=== PATIENT | male | born 1955 | race Caucasian/White ===

== ENCOUNTER → 2017-04-16 | Outpatient (CLI) | payer BC ==
[~2017-04-16] MED LIST: ALLO300T2 PO; AMLO5TAB PO; ASPI81TA25 PO
== END | disposition home or self-care (01) ==
LOC: C.PATHSPEC 10:24
PROVIDERS: ATTEND Plastic Surgery
DX: L57.0 Actinic keratosis (principal)

== ENCOUNTER 2023-05-08 05:53 | Observation (INO) ==
--- NOTE | 2023-05-01 14:04 | Anesthesiology Consultation ---
Date of Service May 01, 2023 Assessment & Plan (1) Encounter for pre-operative examination: Infectious disease screening: Per assessment on 05/01/23: No known infectious disease contacts or current infectious disease symptoms. Chart Review Chart Review: Acceptable Risk for Surgery and Patient NOT seen in Pre Admission Testing History Surgery Operation Date: 05/08/23 10:10 Proposed Procedures p Robotic Laproscopic Assisted Radical Retropubic Prostatecomy, Possible Open, Possible Pelvic Lymph Node Dissection - Baudilio Elliott MD Height/Weight Height: 5 ft 11 in Weight: 86.183 kg Allergies Allergy/AdvReac Type Severity Reaction Status Date / Time No Known Allergies Allergy Verified 05/01/23 13:21 Medications Home Medications Medication Instructions Recorded Confirmed Last Taken atorvastatin 20 mg tablet 10 mg PO QAM 07/25/22 05/01/23 Unknown doxycycline hyclate 20 mg tablet 20 mg PO BID 07/25/22 05/01/23 Unknown metronidazole 0.75 % topical cream 1 applic topical UD PRN rosacea 07/25/22 05/01/23 Unknown allopurinol 300 mg tablet 300 mg PO QAM 05/01/23 05/01/23 Unknown amlodipine 10 mg-valsartan 320 mg 1 tab PO QAM 05/01/23 05/01/23 Unknown tablet prednisone 10 mg tablet 12.5 mg PO DIRECTED 05/01/23 05/01/23 Unknown Past Medical History Medical History Borderline diabetes Claustrophobia History of COVID-19 Mid December 2022- Fever, aches and pains "resolved" "Questionable initiated PMR" History of gout History of kidney stones HTN (hypertension) PMR (polymyalgia rheumatica) Prostate cancer Dx July 2022 Rosacea Past Family History Family History Other No pertinent family history Past Surgical History Surgical History History of colonoscopy History of endoscopy History of melanoma excision History of shoulder surgery right History of total left hip arthroplasty Social History Smoking Status: Current some day smoker Smoking cigarettes per day: in summer cigars/advised npo Do You Dip or Chew Tobacco: No Hx Alcohol Use: Yes Alcohol type: hard liquor Alcohol Intake Frequency Comment: 3 cocktails a day Hx Substance Use: No substance use type: does not use Lab Results Anesthesia Preop Results Results Anesthesia Widget: WBC 9.60 K/ul (4.8-10.8) 04/23/23 Hgb 14.1 g/dl (14.0-18.0) 04/23/23 Hct 42.1 % (42.0-52.0) 04/23/23 Plt 211 K/uL (130-400) 04/23/23 Na 140 mmol/L (136-145) 04/23/23 K 4.4 mmol/L (3.5-5.1) 04/23/23 Cl 103 mmol/L (98-107) 04/23/23 CO2 32 mmol/L (21-32) 04/23/23 BUN 24 mg/dl (6-23) H 04/23/23 Creat 0.95 mg/dl (0.6-1.4) 04/23/23 Glucose Level 127 mg/dl (70-99(Fasting)) H 04/23/23 Testing Laboratory Results Urine culture (04/20/23)- no growth Electrocardiogram Date: 04/23/23 Findings: + NSR @ (85) Chest X-Ray Date: 04/23/23 FINDINGS: Lung volumes are normal. Lungs are clear. There is no pneumothorax or pleural effusion. Cardiac size is normal. Mediastinal contours are normal. There is no evidence for pulmonary edema. IMPRESSION: No acute cardiopulmonary findings.
[2023-05-08] MEDS ORDERED: fentaNYL citrate PF 100 MCG/2 ML VIAL ONE ×2 (06:37→08:28)
[2023-05-08] MEDS ORDERED: MIDAZOLAM HCL 1 MG/ML 2ML VIAL ONE (06:37)
[2023-05-08] MEDS ORDERED: LIDOCAINE 2% 2 ML VIAL/AMP(20MG/ML) INFIL ONE (06:37)
[2023-05-08] MEDS ORDERED: DEXAMETHASONE SOD INJ 4 MG/ML VIAL ONE (06:37)
[2023-05-08] MEDS ORDERED: PROPOFOL IV EMULSION 10 MG/ML 20 ML VIAL IV ONE (06:37)
[2023-05-08] MEDS ORDERED: ROCURONIUM BROMIDE 10 MG/ML 5 ML VIAL IV ONE (06:37)
[2023-05-08] MEDS ORDERED: ONDANSETRON INJ 2 MG/ML 2 ML VIAL ONE ×2 (06:37→09:54)
[2023-05-08] MEDS ORDERED: SUGAMMADEX SODIUM 200 MG/2 ML VIAL IV ONE (06:38)
[2023-05-08] MEDS: LR 15ML/HR IV SCH (07:05)
[2023-05-08] MEDS: HEPARIN SOD 5,000 UNIT/0.5 ML VIAL SQ SCH ×2 (07:05→20:46)
[2023-05-08] MEDS ORDERED: fentaNYL citrate PF 100 MCG/2 ML VIAL IV PRN (07:19)
[2023-05-08] MEDS ORDERED: HYDROmorphone INJ 1 MG/ML SYRINGE IV PRN (07:19)
[2023-05-08] MEDS ORDERED: ATROPINE SULFATE 0.1 MG/ML 10ML SYR IV PRN (07:19)
[2023-05-08] MEDS ORDERED: ONDANSETRON INJ 2 MG/ML 2 ML VIAL IV PRN ×2 (07:19→11:33)
[2023-05-08] MEDS ORDERED: ePHEDrine sulfate 50 MG/ML AMP IV PRN (07:19)
--- NOTE | 2023-05-08 07:24 | History & Physical Bridge Note ---
Date of Service May 08, 2023 History & Physical Bridge Note I have examined the patient, reviewed the History & Physical and in the interval since the performance of the History & Physical I have noted the following changes of clinical significance: no changes noted
[2023-05-08] MEDS: SURGICEL ABSORB HEMOSTAT 2IN X 14IN TOP ONE (09:53)
[2023-05-08] MEDS: FLOSEAL HEMOSTATIC MATRIX 10ML TOP ONE (09:53)
[2023-05-08] MEDS: BUPIVACAINE 0.5 % 5 MG/1 ML MPF 30ML VIAL ONE (09:57)
--- NOTE | 2023-05-08 10:34 | Operative Report ---
PG Post Operative Report Pre & Post Diagnosis Operation Date: 05/08/23 07:30 Pre-Op Diagnosis: Prostate Cancer Post-Op Diagnosis: Prostate Cancer I identified the patient and participated in the time-out.: Yes Procedure Operation Date: 05/08/23 07:30 Actual Procedures p Robotic Assisted Laparoscopic Radical Retropubic Prostatecomy, Bilateral Pelvic Lymph Node Dissection(Not Applicable) - Baudilio Elliott MD Surgeon Baudilio Elliott MD Sterile Processing Tech Mili Hdz Estimated Blood Loss 100 Findings Consistent with Post-Op Diagnosis Specimens 1. Periprostatic fat 2. Prostate seminal vesicles 3. Left pelvic lymph nodes 4. Right pelvic lymph nodes Description of Procedure The patient was identified in the preoperative holding area, appropriate informed consents were reviewed and completed, and he was transported to the operating suite. Subcutaneous heparin was administered in the pre-operative holding area. Upon arrival in the operating suite, he received appropriate antibiotics and general anesthesia. He was positioned in dorsal lithotomy, a B&O suppository was inserted after digital rectal exam, and he was prepped and draped in standard fashion. A Goldberg catheter was inserted in the sterile field. A Veress needle was passed per umbilicus with uniform insufflation of the abdomen to 15mmHg. He was placed in steep Trendelenburg position. A periumbilical incision was then made to accommodate a 12mm Visiport with 10mm 0degree laparoscope. Inspection of the abdomen was carried out, and there was no evidence of traumatic entry or injury secondary to the Veress needle. After confirming a clear anterior abdominal wall, ports were subsequently placed in standard robotic prostatectomy fashion without incident. To begin the robotic portion of the case, the left lateral aspect of the sigmoid was mobilized off of the left pelvic side wall to allow the pouch of Hola to be appropriately visualized. I then made an incision in the pouch of Hola, overlying the seminal vesicles. Both SVs as well as the ampullae of the vasa were entirely dissected, with the vasa transected 3cm from the prostate. The medial umbilical ligaments were then controlled with bipolar electrocautery just inferior to the umbilicus. Following cauterization, they were divided utilizing monopolar cautery. A peritoneal incision was carried from this location to the medial aspect of the internal inguinal rings bilaterally with care to avoid opening through the ring. This incision was concluded when the vas deferens was reached. Dissection of the bladder and prostate off of the posterior aspect of the pubic arch was completed allowing full visualization of the prostate. The fat overlying the prostate was removed en bloc and passed off the table as a specimen labeled "periprostatic fat". The endopelvic fascia was cleared during this portion of the procedure, and subsequently opened - first on the right and then the left. The incision through the endopelvic fascia began near the prostate-bladder junction and was carried to the apex with extreme care to preserve all lateral levator musculature as well as the periurethral musculature and sphincter complex. I additionally preserved the puboprostatic ligaments. I then controlled the DVC with a 3-0 V-lock suture in overlapping/figure of 8 fashion. The lymph node dissection was then conducted. External iliac vessels were identified on the pelvic side wall. The packet of fat and lymphatic tissue that resides just under the iliac vein was elevated and off of the vein with a split and roll technique. The packet was dissected laterally to the circumflex vein and distally to the obturator nerve which was preserved. The proximal aspect of the packet was carried towards the bifurcation of the iliac vessels. A combination of monopolar and bipolar cautery were used to assist with control. After completing the dissection on both sides, the packets were collected and passed off of the table as specimens labeled "pelvic lymph nodes". My attention then returned to the prostate, with identification of the bladder neck aided by gentle traction on the Goldberg catheter and lateral to medial pressure at the presumed level of the bladder neck with the robotic instruments. An anterior cystotomy was made, the Goldberg balloon deflated and the catheter guided through the incision to allow anterior retraction. I attempted to preserve maximal bladder neck musculature as I circumferentially dissected around the bladder neck. After incision through the posterior aspect of the mucosa, the dissection was carried through detrusor muscle until the bilateral ampullae of the vasa were identified. The previously dissected vasa and SVs were brought through the incision and used to elevated the prostate anteriorly. A posterior plane behind the prostate was then developed - splitting Denonvilliers's fascia. This dissection was carried as far as possible towards the apex as well as far as possible laterally. An incision in the lateral prostatic fascia was then made bilaterally to facilitate control of the vascular pedicles and preservation of the nerve bundles. Vasculature running along the posterior/lateral aspect of the prostate was preserved as well as the tissue containing the nerves. The pedicles were then controlled with a series of Weck clips. The apical attachments of the prostate were remaining at that stage. The DVC was divided after control with bipolar cautery over the prostate. Continuous inspection from anterior and lateral views allowed me to closely follow the apical contour of the prostate and maximally preserve urethral length and tissue. The prostate was entirely freed at that point, and collected in an EndoCatch bag before being moved out of the field of vision. Hemostasis was confirmed and anastomosis of the bladder and urethra was completed utilizing a double armed V- Lock stitch. A new Goldberg catheter was inserted and the anastomosis tested with irrigation. There was no evidence of leak. A anmol style stitch was placed bilaterally to functionally marsupialize the area of the lymph node dissection. The robot was undocked, the specimen extracted through expansion of the rhonda- umbilical camera port. The fascia was closed with a series of 0-PDS figure of 8 stitches. The right pharmacy affairs assistant port was closed in two layers - with a figure of 8 0-Vicryl to reapproximate the fascia followed by 4-0 Monocryl to close the skin. Monocryl was used to close all other skin incisions. All wounds were dressed with Dermabond. The case was concluded and the patient taken to the PACU in stable condition. Mili Hdz assisted from incision to closure. I attest to the content of the Intraoperative Record and any orders documented therein. Any exceptions are noted below.
--- NOTE | 2023-05-08 10:51 | Anesthesiology Progress Note ---
Date of Service May 08, 2023 Anesthesia Post Procedure Vital Signs Vital Signs: Temp Pulse Pulse Resp BP Pulse Ox O2 Del Method 05/08/23 10:45 78 20 122/80 93 Room Air 05/08/23 10:35 76 16 128/73 100 Oxymask 05/08/23 10:25 36.5 C 82 19 126/70 97 Oxymask 05/08/23 06:36 36.9 C 82 18 148/80 H 97 Room Air O2 Flow Rate 05/08/23 10:45 05/08/23 10:35 14 05/08/23 10:25 14 05/08/23 06:36 Transfer of Care Handoff Completed per policy Notes Mental Status: alert / awake / arousable and participated in evaluation Patient Amnestic to Procedure: Yes Nausea / Vomiting: adequately controlled Pain: adequately controlled Airway Patency, RR, SpO2: stable & adequate BP & HR: stable & adequate Hydration State: stable & adequate Anesthetic Complications: no major complications apparent and Pt Satisfied with anesthetic care
[2023-05-08 10:57] LABS: Hematocrit (blood only) 41.8 % (42.0-52.0); Mean Corpuscular Hemoglobin 30.5 pg (25.0-34.0); Mean Corpuscular Hgb Conc 33.5 g/dL (32.0-36.0); Mean Corpuscular Volume 91.1 fL (80.0-100.0); Mean Platelet Volume 9.4 fL (9.4-12.4); Platelet Count 189 K/uL (130-400); RDW Coefficient of Variation 12.9 % (11.5-14.5); RDW Standard Deviation 42.3 fL (36.4-46.3); Red Blood Count 4.59 M/uL (4.70-6.10); White Blood Count 11.23 K/ul (4.8-10.8)
[2023-05-08 11:13] LABS: BUN Creatinine Ratio 21.6 (10-20); Calcium 8.9 mg/dl (8.6-10.3); Creatinine Clr Calc Pharmacy 76.6 ml/min; Est GFR (African American) 91.9 ml/min; Est GFR (Non-African American) 79.3 ml/min; Potassium 4.9 mmol/L (3.5-5.1)
[2023-05-08 11:21] LABS: Basophils # (auto) 0.03 K/uL (0.00-0.20); Basophils % (auto) 0.3 %; Immature Granulocytes # (auto) 0.05 K/uL (0.01-0.20); Immature Granulocytes % (auto) 0.4 %; Monocytes % (auto) 0.9 %; Neutrophils # (auto) 10.15 K/uL (1.40-6.50); Neutrophils % (auto) 90.4 %
[2023-05-08] MEDS ORDERED: oxyCODONE HCL IR 5 MG TAB (IMMEDIATE RELEASE) PO PRN ×2 (11:33)
[2023-05-08] MEDS ORDERED: MoRPHine SULFATE 4 MG/ML 1 ML CARP\\VIAL IV PRN (11:33)
[2023-05-08] MEDS ORDERED: MoRPHine SULFATE 2 MG/ML CARP IV PRN (11:33)
[2023-05-08] MEDS: LACTATED RINGER'S 1,000 ML IV SCH (11:50)
[2023-05-08] MEDS: ceFAZolin 2000MG 2,000 MG/15 ML SYR IV SCH (14:31)
--- OUTSIDE RECORDS SUMMARY | 2023-05-08 20:33 | External Medical Summary | Summary of Care ---
Author Name Unknown Organization [facility] Address [address] [facility] [place] [address] Phone [phone] Care Team Providers Care Stereo Equipment Salesperson Name Role Phone Reddy Hines MD Primary Care Provider + Reason for Visit * Reason Onset Date Comments Advice 04/23/2023 Luis Angel calling f [facility] Urology [phone]. Pt is due to have Prostatectomy 05.28.23 and is asking if she should have steroids prior to having surgery? Please advise and call Luis Angel Encounter Details Date Type Department Care Team (Late st Contact Info) Description 04/23/2023 Telephone Rheumatology [facility] [address] [place] [address] Davidson Sloan MD [address] [place] [address] Advice (Luis Angel calling from Urology [phone]... Allergies No known active allergiesdocumented as of this encounter (statuses as of 04/24/2023) Medications Medication Sig Dispensed Refills Start Date End Date Status Betamethasone Valerate 0.1 % External Lotion Apply to ears daily as needed 60 mL 2 06/19/2022 Active Allopurinol 300 MG Oral Tablet (Zyloprim)Indications: Gout of foot, unspecified cause, unspecified chronicity, unspecified laterality TAKE 1 TABLET BY MOUTH EVERY DAY 90 Tablet 3 06/22/2022 Active Doxycycline Hyclate 20 MG Oral TabletIndications:Carolina cea TAKE 1 TABLET BY MOUTH IN THE MORNING AND 1 TAB AT BEDTIME 180 Tablet 3 08/06/2022 Active Atorvastatin Calcium 20 MG Oral Tablet (Lipitor)Indications:H yperlipidemia, unspecified hyperlipidemia type TAKE 1 TABLET BY MOUTH EVERY DAY IN THE MORNING 90 Tablet 2 09/19/2022 Active metroNIDAZOLE 0.75 % External Cream (Metrocream)Indication s:Rosacea APPLY TO THE FACE TWICE A DAY 45 g 11 11/22/2022 Active amLODIPine Besylate-Valsartan 10-320 MG Oral TabletIndications:HTN, goal below 140/90 Take 1 Tablet by mouth in the morning. Take 1 Tablet by mouth. In the morning.. 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 Elects monitor Q6mo PSA Elevated prostate specific antigen (PSA) 023 Dyslipidemia, goal LDL below 130 05/06/2020 Rotator cuff tendonitis, left 05/02/2019 Prediabetes 05/01/2018 Rosacea 04/27/2017 History of malignant melanoma of skin 04/24/2017 Overview: Hx MM date 2013, Depth unsure, Location right side of neck Well adult exam 04/29/2015 Overview: 05/25 PSA 6--monitor. 04/23 Colon--IC valve tubular adenoma. Donell 3y 02/17 colon WNL donell 3y Colon 2013 [place]? Polyp donell 3-5y I see , daughter Keily. Mary Rosenbaum (Surg PA is daughter) HTN, goal below 140/90 04/29/2015 Gout 04/29/2015 documented as of this encounter (statuses as of 04/24/2023) Resolved Problems Problem Noted Date Diagnosed Date Resolved Date History of melanoma 04/29/2015 04/24/19 18 Overview: Right neck documented as of this encounter (statuses as of 04/24/2023) Immunizations Name Administration Dates Next Due COVID-19 mRNA, LNP-s, No Pre serve, 2-Dose Series (Moderna) 02/09/2021,06/03/2020,05/07/2020 Covid-19, Mrna, Lnp-s, Pf, B ivalent, 30 Mcg, IM, 12 yrs and above (Pfizer) 01/25/2022 PPD 02/09/2021 Pneumococcal Conjugate Vacc, 13 Valent (Prevnar) 08/22/2018 Pneumococcal Polysaccharide PPV23 (Pneumovax) 08/26/2019 Season Influenza, Quad, PF, Adjuvanted, 65+ Yrs, IM (FLUAD) 01/25/2022 Seasonal Influenza, PF, 6 M & above, IM , (FluLaval or Fluzone) 01/15/2020,12/31/2018,01/14/2018,12/31 Seasonal Influenza, Quadriva lent Hd (Fluzone Hd) 04/12/2023,12/10/2020 Seasonal Influenza, Quadriva lent, No Preserve, IM 12/19/2017,02/01/2016 01/31/2017 Seasonal Influenza, Split, I IV3, With Preserve, Inj 01/30/2015 TDAP (age 11 and older)(Adacel) 04/30/2015 Varicella Zoster Vaccine (Adult) 10/01/2011 Zoster Vaccine Recombinant (Shingrix) 01/19/2020 ,08/26/2019 documented as of this encounter Social History Tobacco Use Types Packs/Day Years Used Date Smoking Tobacco: Never Smokeless Tobacco: Never Alcohol Use Standard Drinks/Week Comments Yes 0 (1 standard drink = 0.6 oz pur e alcohol) no binge, 2 drink/day PHQ-2 Answer Date Recorded PHQ Adult Total Score 0 05/18/2022 Hunger Vital Sign Answer Date Recorded Within the past 12 months, y ou worried that your food would run out before you got the money to buy more. Never true 05/18/19 23 Within the past 12 months, t he food you bought just didn't last and you didn't have money to get more. Never true 05/18/2022 Sex and Gender Information Value Date Recorded Sex Assigned at Male 05/06/2020 9:32 AM EST Gender Identity Male 05/06/2020 9:32 AM EST Sexual Orientation Choose not to disclose 2020 9:32 AM EST Job Start Date Occupation Industry Not on file Not on file Not on file documented as of this encounter Miscellaneous Notes * Telephone Encounter - Davidson Sloan MD - 04/24/2023 4:29 PM EST I spoke with Luis Angel. Anesthesia wondering about stress dose steroids. Would be reasonable to do this. Will contact Ed about steroid dosing/ * Telephone Encounter - Yara Singh OSA - 04/23/2023 4:51 PM EST Luis Angel calling from Urology [phone]. Pt is due to have Prostatectomy 05.28.23 and is askingif she should have steroids prior to having surgery? Please advise and call Luis Angel Thank-you! Yara documented in this encounter Plan of Treatment Upcoming Encounters Date Type Department Care Team (Late st Contact Info) Description 05/23/2023 9:20 AM EST Office Visit Family Practice [facility] [address] [place] [address] Reddy Hines MD [address] [place] [address] 06/25/2023 9:00 AM EDT Imaging Radiology, [facility] [address] [facility] [place] [address] 08/02/2023 11:15 AM EDT Office Visit Dermatology [facility] [place] [address] [facility] [place] [address] Dimitris Ramey MD [address] [place] [address] Scheduled Procedures Name Priority Associated Diagnoses Date/Ti me COLONOSCOPY FLEXIBLE PROXIMA L DIAGNOSTIC Recall History of colonic polyps Health Maintenance Due Date Last Done Comments COVID-19 Vaccine ( season) 2022 01/25/2022, 02/09/2021, 06/03/2020, Additional history exists Depression Screening 05/18/2023 05/18/2022 GFR 03/12/2024 03/12/2023, 02/0 12/2022, 04/21/2021, Additional history exists HbA1c 03/12/2024 03/12/2023, 02/0 12/2022, 04/21/2021, Additional history exists COLONOSCOPY-EVERY 3 YRS AGES 18-100 04/13/2024 04/13/2021, 04/13/2021, 02/04/2018, Additional history exists DTaP,Tdap,and Td Vaccines (2 - Td or Tdap) 04/30/2025 04/30/2015 Albumin/Creatinine Ratio 05/11/2025 05/11/2022, 04/03 Lipid Panel 06/29/2027 06/28/2022, 04/03, 06/05/2017, Additional history exists Pneumococcal Vaccine: 65+ Years Completed 08/26/2019, 08/22/2018 Zoster Vaccines Completed 01/19/2020, 08/01, 10/01/2011 Influenza Vaccine (FLU shot) Completed 02/2024, 01/25/2022, 12/10/2020, Additional history exists GARDASIL-HPV IMMUNIZATION SERIES Aged Out No longer eligible based on patient's age to complete this topic Hepatitis B Aged Out No longer eligi ble based on patient's age to complete this topic MENINGOCOCCAL (MENACTRA/MENVEO) Aged Out No longer eligible based on patient's age to complete this topic documented as of this encounter Medical Devices Not on filedocumented as of this encounter Care Teams Stereo Equipment Salesperson Relationship Specialty Start Date End Date Reddy Hines MD [address] [place] [address] PCP - General Family Medicine 04/29/15 documented as of this encounter
[2023-05-08] MEDS: DOCUSATE SODIUM 100 MG CAP PO SCH (20:44)
[2023-05-09] MEDS: ACETAMINOPHEN 325 MG TAB PO PRN (06:10)
[2023-05-09 06:38] LABS: Basophils # (auto) 0.01 K/uL (0.00-0.20); Basophils % (auto) 0.1 %; Hematocrit (blood only) 36.3 % (42.0-52.0); Hemoglobin 12.7 g/dl (14.0-18.0); Immature Granulocytes # (auto) 0.05 K/uL (0.01-0.20); Immature Granulocytes % (auto) 0.5 %; Lymphocytes # (auto) 1.19 K/uL (1.20-3.40); Lymphocytes % (auto) 11.5 %; Mean Corpuscular Hemoglobin 31.1 pg (25.0-34.0); Mean Corpuscular Volume 88.8 fL (80.0-100.0); Mean Platelet Volume 9.8 fL (9.4-12.4); Monocytes # (auto) 0.65 K/uL (0.11-0.59); Monocytes % (auto) 6.3 %; Neutrophils # (auto) 8.47 K/uL (1.40-6.50); Neutrophils % (auto) 81.6 %; Platelet Count 161 K/uL (130-400); RDW Coefficient of Variation 12.6 % (11.5-14.5); RDW Standard Deviation 40.8 fL (36.4-46.3); Red Blood Count 4.09 M/uL (4.70-6.10); White Blood Count 10.37 K/ul (4.8-10.8)
[2023-05-09 07:03] LABS: BUN Creatinine Ratio 17.3 (10-20); Calcium 8.9 mg/dl (8.6-10.3); Est GFR (African American) 108.5 ml/min; Est GFR (Non-African American) 93.6 ml/min; Potassium 4.3 mmol/L (3.5-5.1)
--- NOTE | 2023-05-09 08:20 | Urology Progress Note ---
Date of Service May 09, 2023 Assessment & Plan (1) Prostate cancer: Plan: Postop day #1 status post robotic prostatectomy Recovery very much on pace Plan for discharge home this morning Admission and Anticipated Discharge Date Admission Date: May 08, 2023 Subjective Doing great No pain Ambulatory Anxious to go home Urine clear Physical Exam Physical Exam: Abdomen soft Incisions appropriate Minimal bruising around his umbilical incision Urine is crystal clear Results & Data Vital Signs (Past 12 Hours) Vital Signs Temp Pulse Resp BP Pulse Ox O2 Del Method 05/09/23 07:18 37.3 C 76 18 146/76 H 93 Room Air 05/09/23 02:24 36.9 C 70 16 141/70 H 94 Room Air 05/08/23 22:44 37 C 82 16 147/72 H 96 Room Air PG Care Time/CCT Total # of Minutes Spent Total Time Spent with Patient: Total time spent is greater than 50% in coordination of care (as documented) at patient's floor/unit and/or counseling patient: Coding Level of Care Code None Diagnoses Prostate cancer C61
[2023-05-09] MEDS: allopurinoL 300 MG TAB PO SCH (08:39)
[2023-05-09] MEDS: amLODIPine BESYLATE 5 MG TAB PO SCH (08:39)
[2023-05-09] MEDS: ATORVASTATIN 10 MG TAB PO SCH (08:39)
[2023-05-09] MEDS: predniSONE 2.5 MG TAB PO SCH (08:39)
[2023-05-09] MEDS: VALSARTAN 80 MG TAB PO SCH (08:40)
--- NOTE | 2023-05-09 09:28 | Discharge Summary ---
Date of Service May 09, 2023 Admission HPI Per Admitting Provider 67 year old male with prostate cancer admitted for robotic prostatectomy Admission Exam Per Admitting Provider General: Alert and oriented, no acute distress HEENT: Normocephalic, mucous membranes moist Pulmonary: Nonlabored respirations Abdomen: Nondistended Extremities: Moves all 4 spontaneously Neuro: No gross deficits Skin: Warm, dry, no rashes noted Principal Diagnosis Prostate Cancer Discharge Exam Constitutional well developed and well nourished; no acute distress Respiratory normal respiratory effort; no respiratory distress and no labored breathing Gastrointestinal (Abdomen) Soft, nontender. Incisions appropriate, dermabond intact. Musculoskeletal Head/Neck/Chest: normocephalic Skin no rashes, warm and dry Neurologic moves all extremities and awake Psychiatric A+Ox3, euthymic affect Genitourinary Goldberg intact draining clear yellow urine Discharge Data Allergies Allergy/AdvReac Type Severity Reaction Status Date / Time No Known Allergies Allergy Verified 05/08/23 06:35 Procedures Performed Operation Date: 05/08/23 07:30 Actual Procedures p Robotic Assisted Laparoscopic Radical Retropubic Prostatecomy, Bilateral Pelvic Lymph Node Dissection(Not Applicable) - Baudilio Elliott MD Hospital Course (1) Prostate cancer: Plan 67-year-old male admitted status post robotic prostatectomy with Dr. Elliott. Patient tolerated procedure well. No acute issues postoperatively. He remained afebrile and hemodynamically stable. Labs were appropriate and stable -WBC 10.37, hemoglobin 12.7, creatinine 0.75. Goldberg with adequate drainage and clear yellow urine. Pt reported minimal pain. Tolerated diet. Ambulated without issue. Patient was stable for discharge home on postop day #1. He was discharged home with Goldberg catheter in place. He was in stable condition at time of discharge. Appropriate postoperative follow-up appointments were in place. Discharge instructions were reviewed and all questions were answered. Total Time Total Time Spent Total Time Spent (In Minutes): 15 Discharge Plan Discharge Items Patient Disposition: Home - Self-Care Reason For Visit: Prostate Cancer Discharge Diagnosis: Prostate Cancer Activity: Per Instructions section Bathing Comment: OK to shower. No tub baths or soaks. Sexual Activity: Wait until after follow-up appointment Exercise/Sports: Wait until after follow-up appointment Driving/Machine Use: Do not drive if taking prescription pain medication. Non-emergency contact: Surgeon and Urologist Call non-emergency contact if: you have any medication questions, your pain is not controlled, your pain is worsening, you have a fever, your wound has increased redness, your wound has increased drainage and your wound pain has increased Follow-up/Referrals: Baudilio Elliott MD [Physician] - 05/23/23 11:15 am Reddy Hines MD [Primary Care Provider] - Urology,Nurse [FAKE FOR SCHEDULES] - 05/14/23 11:10 am Diet: Regular Addtl Attending Provider Instructions: Please take all medications as prescribed and keep all follow-ups as scheduled. Please call our office at [phone] with any questions, concerns or need to reschedule appointments for any reason. We are happy to assist you We have sent an antibiotic to your pharmacy of choice. Please begin antibiotic as prescribed the day BEFORE your scheduled catheter removal at [facility]. Please continue antibiotic every 12 hours until complete. Activity: We recommend having someone with you for the first few days after surgery to help care for you. For the first 2 weeks after surgery, we would like you to get up and walk around your house. However, we recommend limit physical activity that would increase your heart rate. This will allow your body to rest and heal. Take naps if you feel tired. Don't lift anything heavier than 10 pounds, mow the law or ride a bicycle until your follow-up appointment. Please avoid long car rides. Home Care: Unless directed otherwise, drink 6 to 8 glasses of water a day (enough to keep your urine light colored). This will also help keep a healthy flow of urine. We recommend using a stool softener for the first two weeks to avoid constipation. Goldberg Catheter or Suprapubic Catheter care: Keep the catheter well secured with either a leg back or leg strap with large bag. Empty your bag when it's about half full. You may notice some blood in the bag. This is normal after surgery and while the catheter is in place. Use mild soap (such as Dove or Dial) and water to wash the catheter and the head of your penis daily, or more frequently if needed. Return to your normal diet, we encourage good protein intake to promote healing. You may shower as normal. Please avoid tub baths or soaking until catheter removed and incisions well healed. Wearing sweat pants while you have the catheter is recommended, they will be more comfortable. Follow-up Your follow up appointments for having your catheter removed, and follow up with your physician should already be scheduled. If you have any questions regarding this, please contact our office. Your final pathology report will be discussed at your physician follow-up appointment. Call [facility] at [phone] right away if you have any of the following: Chest pain or trouble breathing (call 911 or go to the hospital) Fever of 101F or higher, uncontrolled vomiting Heavy bleeding, clots, or bright red blood from the catheter Catheter that falls out or stops draining Foul-smelling discharge from your catheter Redness, swelling, warmth, or increased pain at your incision site Drainage, pus, or bleeding from your incision Pending Studies at Discharge: Yes (pathology) Stand-Alone Forms: [facility], Smoking Cessation Medications and DC Order Prescriptions: New ciprofloxacin HCl 500 mg tablet 500 mg PO BID 3 Days Qty: 6 0RF Rx Instructions: Start 1 day prior to catheter removal Continued atorvastatin 20 mg tablet 10 mg PO QAM metronidazole 0.75 % cream 1 applic topical UD PRN (Reason: rosacea) doxycycline hyclate 20 mg tablet 20 mg PO BID prednisone 10 mg Tablet 12.5 mg PO DIRECTED Patient Comments: current dose 12.5 mg / taper dose. Rx Instructions: see taper instructions allopurinol 300 mg Tablet 300 mg PO QAM amlodipine-valsartan 10-320 mg Tablet 1 tab PO QAM Discharge Orders: Discharge Order (Routine); Ordered 05/09/23 Ordered By: Mili Weaver/Other Patient Handouts: Urinary Catheter Bag Empty Clean, Indwelling Urinary Catheter Dc, Leg Bag Care Dc Admission Data Admit Date/Time: 05/08/23 10:35 Attending Provider: Baudilio Elliott Admit Provider: Baudilio Elliott Primary Care Provider: Reddy Hines Other Interventions: Discharge Summary Assessment (RN) Last Done: 05/09/23 10:00 Coding Level of Care Code 47333 IN/OBS DISCH 30 MIN/LESS Diagnoses Prostate cancer C61
== END 2023-05-09 12:06 | disposition home or self-care (01) ==
LOC: ASU 05:53 → 3N 10:35 → INTOOBSV 10:35

== ENCOUNTER 2023-07-07 11:58 | Inpatient (IN) ==
--- OUTSIDE RECORDS SUMMARY | 2023-07-07 12:02 | External Medical Summary ---
Author Name Unknown Address Unknown Organization [id number]:[facility] - [address] [place] [address] Laboratory Report Ordering Provider Test Date Status DAMON COSME 06/19/2023 16:40:49 Final Observation Date Value Abnormality Reference (Units) Status Bacteria identified in Specimen by Culture 06/19/2023 16:40:49 No significant growth Final Test: Culture, Urine, Quanti tative
Specimen Source: Urine, Clean Catch
Specimen Type: Urine
Specimen Date: 06/19/2023 4:40 PM
Result Date: 06/20/2023 6:04 PM
Result Status: Final result
Resulting Lab: [facility]
[address]
[facility] [id number]

CULTURE

No significant growth

null Performing Location [facility] - [address] [facility] [id number]
--- NOTE | 2023-07-07 12:31 | Emergency Department Note ---
ED Provider Note History of Present Illness Chief Complaint: Abdominal Pain Stated Complaint: ABDOMINAL PAIN Time Seen by Provider: 07/07/23 12:11 Source: patient Mode of arrival: ambulatory Limitations: no limitations This patient is a 67-year-old male who presents to the emergency department for evaluation of abdominal pain. Patient reports that he was watching his granddaughters wrestling match this morning when pain started, about 3 hours ago. He reports pain is throughout his abdomen, not in 1 focal location. Denies any associated nausea/vomiting, diarrhea, constipation, urinary symptoms or fevers. He states that he was feeling okay last night and woke up feeling okay this morning. He does report that he had a prostatectomy 8 weeks ago due to prostate cancer. Denies any history of similar symptoms. He states that his symptoms worsen when he walks around. Rates his pain a 10/10. Home Medications Medication Instructions Recorded Confirmed Type atorvastatin 20 mg tablet 10 mg PO QAM 07/25/22 07/07/23 History doxycycline hyclate 20 mg tablet 20 mg PO BID 07/25/22 07/07/23 History metronidazole 0.75 % topical cream 1 applic topical UD PRN rosacea 07/25/22 07/07/23 History allopurinol 300 mg tablet 300 mg PO QAM 05/01/23 07/07/23 History amlodipine 10 mg-valsartan 320 mg 1 tab PO QAM 05/01/23 07/07/23 History tablet prednisone 5 mg tablet 5 mg PO DAILY 07/07/23 07/07/23 History sildenafil 100 mg tablet 100 mg PO DAILY PRN Sexual Activity 07/07/23 07/07/23 History Allergies Allergy/AdvReac Type Severity Reaction Status Date / Time No Known Allergies Allergy Verified 07/07/23 15:03 Past Med/Surg History Medical History Encounter for pre-operative examination History of COVID-19 Mid December 2022- Fever, aches and pains "resolved" "Questionable initiated PMR" Borderline diabetes History of kidney stones History of gout Rosacea Claustrophobia PMR (polymyalgia rheumatica) HTN (hypertension) Prostate cancer Dx July 2022 Surgical History History of melanoma excision History of shoulder surgery right History of endoscopy History of colonoscopy History of total left hip arthroplasty Family History Other No pertinent family history Social History Smoking Status: Never smoker Tobacco Type: Cigars Cigarettes Per Day: in summer cigars/advised npo; Do You Dip or Chew Tobacco: No; Hx Alcohol Use: Yes Alcohol type: other Hx Substance Use: No Preferred Language: Arabic Communication Ability: Effective Jumpbasting Collar Baster Required: No Beliefs That Will Affect Care: None marital status: Current Living Situation: Spouse Current Living Situation Comment: and adult mentally challenged daughter. current occupational status: retired Feels Safe at Home: Yes Safety Concerns: Feels Safe At This Time Dental Care, Regularly: Yes Seatbelt Use: always Sunscreen Use: Yes Assistive Devices: Glasses Physical Exam Vital Signs Vital Signs - 24 hr 07/07/23 11:58 07/07/23 12:00 07/07/23 12:43 Temperature 36.8 C Temperature Source Temporal Artery Scan Pulse Rate 92 H 85 Pulse Rate [Apical] Pulse Rate [Left Finger] 88 Pulse Rhythm Regular Pulse Rhythm [Apical] Respiratory Rate 16 18 16 Respiratory Effort / Characteristics Non-Labored Spontaneous Non-Labored Spontaneous Respiratory Depth Normal Normal Respiratory Pattern Regular Blood Pressure 161/72 H Blood Pressure [Right Arm] 150/79 H Blood Pressure Mean 101 Blood Pressure Mean [Right Arm] 102 Blood Pressure Position Sitting Blood Pressure Position [Right Arm] Semi-fowlers Pulse Oximetry 97 95 97 Oxygen Delivery Method Room Air Room Air Room Air Oxygen Flow Rate Sepsis Recent Fever Within 48 Hours No Sepsis New/Unexplained Change in Mental Status N/A Sepsis Action Taken by Nursing No Action Required 07/07/23 12:49 07/07/23 14:00 07/07/23 15:00 Temperature Temperature Source Pulse Rate 84 Pulse Rate [Apical] Pulse Rate [Left Finger] 100 H 115 H Pulse Rhythm Pulse Rhythm [Apical] Respiratory Rate 22 23 Respiratory Effort / Characteristics Non-Labored Spontaneous Non-Labored Spontaneous Respiratory Depth Normal Normal Respiratory Pattern Regular Regular Blood Pressure Blood Pressure [Right Arm] 157/78 H 187/103 H Blood Pressure Mean Blood Pressure Mean [Right Arm] 104 131 Blood Pressure Position Blood Pressure Position [Right Arm] Semi-fowlers Semi-fowlers Pulse Oximetry 95 96 Oxygen Delivery Method Room Air Room Air Oxygen Flow Rate Sepsis Recent Fever Within 48 Hours Sepsis New/Unexplained Change in Mental Status Sepsis Action Taken by Nursing 07/07/23 19:26 Temperature 37.2 C Temperature Source Temporal Artery Scan Pulse Rate Pulse Rate [Apical] 120 H Pulse Rate [Left Finger] Pulse Rhythm Pulse Rhythm [Apical] Regular Respiratory Rate 12 Respiratory Effort / Characteristics Non-Labored Spontaneous Respiratory Depth Normal Respiratory Pattern Regular Blood Pressure Blood Pressure [Right Arm] 124/81 Blood Pressure Mean Blood Pressure Mean [Right Arm] 95 Blood Pressure Position Blood Pressure Position [Right Arm] Semi-fowlers Pulse Oximetry 96 Oxygen Delivery Method Oxymask Oxygen Flow Rate 4 Sepsis Recent Fever Within 48 Hours Sepsis New/Unexplained Change in Mental Status Sepsis Action Taken by Nursing VITALS: Vitals are noted on the nurse's note and reviewed by myself. GENERAL: This is a 67-year-old male, wincing in pain, uncomfortable appearing. SKIN: The skin was without rashes. There are healing surgical incisions to the abdomen. NECK: Supple without nuchal rigidity. No lymphadenopathy. HEART: Regular rate and rhythm without murmurs gallops or rubs. LUNGS: Clear to auscultation bilaterally without wheezes, rales or rhonchi. ABDOMEN: Positive bowel sounds x 4. Abdomen is soft, with moderate tenderness to palpation throughout the abdomen with positive guarding. NEURO: Patient was alert and oriented to person place and time. Course Administered Medications Heparin Sodium (Porcine) (Heparin Sod 5,000 Unit/0.5 Ml Vial) 5,000 units SQ Q12 [facility] Stop: 08/06/23 20:59 Last Admin: 07/07/23 21:55 Dose: 5,000 units Documented By: SERENITY Lactated Ringer's (Lr) 1,000 mls @ 100 mls/hr IV .Q10H [facility] Stop: 08/06/23 20:44 Last Admin: 07/07/23 21:09 Dose: 100 mls/hr Documented By: SERENITY Piperacillin Sod/Tazobactam (Sod 4.5 gm/ Dextrose) 100 mls @ 25 mls/hr IV Q8H NATHAN; Protocol Stop: 07/17/23 20:59 Last Admin: 07/08/23 04:41 Dose: 25 mls/hr Documented By: Infusion: 07/08/23 01:56 Dose: Infused Documented By: Admin: 07/07/23 21:52 Dose: 25 mls/hr Documented By: SERENITY Vancomycin HCl 1,250 mg/ (Sodium Chloride) 275 mls @ 200 mls/hr IV Q12H [facility] Stop: 07/18/23 00:00 Last Infusion: 07/08/23 01:38 Dose: Infused Documented By: Admin: 07/08/23 00:06 Dose: 200 mls/hr Documented By: SERENITY Acetaminophen (Ofirmev) 1,000 mg in 100 mls @ 400 mls/hr IV Q8H PRN PRN Reason: pain/fever Stop: 07/10/23 21:04 Last Infusion: 07/08/23 04:13 Dose: Infused Documented By: Admin: 07/08/23 03:50 Dose: 400 mls/hr Documented By: SERENITY Methylprednisolone 4 mg/ (Syringe) 0.4 mls @ 0.133 mls/min IV DAILY [facility] Stop: 08/07/23 01:44 Last Admin: 07/08/23 01:51 Dose: 0.133 mls/min Documented By: SERENITY Insulin Aspart (Insulin Aspart Per Unit Charge) 0 units SC Q6 [facility]ATHAN Stop: 08/06/23 23:14 Last Admin: 07/08/23 06:15 Dose: 2 units Documented By: SERENITY Co-signed By: PATRICIA Admin: 07/08/23 00:04 Dose: 2 units Documented By: SERENITY Co-signed By: TP Discontinued Medications Acetaminophen (Acetaminophen 1000 Mg/100 Ml Iv) Confirm Administered Dose 1,000 mg IV .STK-MED ONE Stop: 07/07/23 17:07 Last Admin: 07/07/23 17:09 Dose: 1,000 mg Documented By: [id number] Bupivacaine HCl (Bupivacaine 0.5 % 5 Mg/1 Ml Mpf 30ml Vial) Confirm Administered Dose 30 ml .ROUTE .STK-MED ONE Stop: 07/07/23 17:39 Last Admin: 07/07/23 18:45 Dose: 30 ml Documented By: ZAHRA Bupivacaine HCl (Bupivacaine 0.5 % 5 Mg/1 Ml Mpf 30ml Vial) Confirm Administered Dose 30 ml .ROUTE .STK-MED ONE Stop: 07/07/23 17:40 Last Admin: 07/07/23 18:45 Dose: 10 ml Documented By: ZAHRA Hydromorphone HCl (Hydromorphone Inj 0.5 Mg/0.5 Ml Syr) 0.5 mg IV NOW STA Stop: 07/07/23 14:21 Last Admin: 07/07/23 20:33 Dose: Not Given Documented By: SERENITY Hydromorphone HCl (Hydromorphone Inj 1 Mg/Ml Syringe) 1 mg IV NOW STA Stop: 07/07/23 14:22 Last Admin: 07/07/23 14:30 Dose: 1 mg Documented By: MIHAI Sodium Chloride (Nss) 1,000 mls @ 999 mls/hr IV .Q1H1M ONE Stop: 07/07/23 13:23 Last Infusion: 07/07/23 13:52 Dose: Infused Documented By: Admin: 07/07/23 12:42 Dose: 999 mls/hr Documented By: MIHAI Piperacillin Sod/Tazobactam Sod (Zosyn) 4.5 gm in 100 mls @ 200 mls/hr IV NOW ONE Stop: 07/07/23 14:44 Last Infusion: 07/07/23 14:58 Dose: Infused Documented By: Admin: 07/07/23 14:28 Dose: 200 mls/hr Documented By: MIHAI Vancomycin HCl 1,750 mg/ (Sodium Chloride) 535 mls @ 200 mls/hr IV NOW ONE Stop: 07/07/23 16:55 Last Infusion: 07/07/23 20:34 Dose: Infused Documented By: Admin: 07/07/23 14:45 Dose: 200 mls/hr Documented By: MIHAI Magnesium Sulfate/Dextrose (Magnesium Sulfate / D5w) 1 gm in 100 mls @ 50 mls/hr IV Q2H NATHAN Stop: 07/08/23 01:14 Last Infusion: 07/08/23 01:57 Dose: Infused Documented By: Admin: 07/07/23 23:56 Dose: 50 mls/hr Documented By: Infusion: 07/07/23 23:50 Dose: Infused Documented By: Admin: 07/07/23 21:50 Dose: 50 mls/hr Documented By: SERENITY Ioversol (Optiray 320 100ml) 92 ml IV ONCE ONE Stop: 07/07/23 13:14 Last Admin: 07/07/23 13:16 Dose: 92 ml Documented By: SELMA Ketorolac Tromethamine (Ketorolac Tromethamine 15 Mg/Ml Vial) 15 mg IV NOW ONE Stop: 07/07/23 21:06 Last Admin: 07/07/23 22:07 Dose: Not Given Documented By: SERENITY Morphine Sulfate (Morphine Sulfate 10 Mg/Ml Carp/Vial) 6 mg IV NOW STA Stop: 07/07/23 12:24 Last Admin: 07/07/23 12:39 Dose: 6 mg Documented By: LMM Ondansetron HCl (Ondansetron Inj 2 Mg/Ml 2 Ml Vial) 4 mg IV NOW STA Stop: 07/07/23 12:24 Last Admin: 07/07/23 12:39 Dose: 4 mg Documented By: LMM Medical Decision Making Differential Diagnosis Appendicitis, testicular torsion, infections, diverticulitis, UTI, obstruction, mesenteric ischemia, aortic pathology, inflammatory bowel disease, renal colic, PUD, pancreatitis, biliary pathology, hernia, volvulus, constipation, as well as other pathologies. Laboratory Data Attestation: I reviewed the patient's lab results. 07/07/23 12:12 07/07/23 12:12 Lab Results 07/07/23 07/07/23 Range/Units 12:12 12:45 WBC 20.45 H (4.8-10.8) K/ul RBC 4.71 (4.70-6.10) M/uL Hgb 14.8 (14.0-18.0) g/dl Hct 42.7 (42.0-52.0) % MCV 90.7 (80.0-100.0) fL MCH 31.4 (25.0-34.0) pg MCHC 34.7 (32.0-36.0) g/dL RDW Std Deviation 42.6 (36.4-46.3) fL RDW Coeff of Magdi 13.0 (11.5-14.5) % Plt Count 283 (130-400) K/uL MPV 9.8 (9.4-12.4) fL Immature Gran % (Auto) 0.5 % Neut % (Auto) 89.9 % Lymph % (Auto) 6.7 % [place] % (Auto) 2.6 % Eos % (Auto) 0.1 % Baso % (Auto) 0.2 % Neut # (Auto) 18.38 H (1.40-6.50) K/uL Lymph # (Auto) 1.38 (1.20-3.40) K/uL [place] # (Auto) 0.53 (0.11-0.59) K/uL Eos # (Auto) 0.02 (0.00-0.50) K/uL Baso # (Auto) 0.04 (0.00-0.20) K/uL Immature Gran # (Auto) 0.10 (0.01-0.20) K/uL Sodium 140 (136-145) mmol/L Potassium 4.1 (3.5-5.1) mmol/L Chloride 103 (98-107) mmol/L Carbon Dioxide 27 (21-32) mmol/L Anion Gap 10 (3-11) BUN 20 (6-23) mg/dl Creatinine 0.78 (0.6-1.4) mg/dl Est Cr Clr Drug Dosing 92.3 ml/min Est GFR ( Amer) 106.7 ml/min Est GFR (Non-Af Amer) 92.1 ml/min BUN/Creatinine Ratio 25.6 H (10-20) Glucose 115 H (70-99(Fasting)) mg/dl Estimat Average Glucose 140 mg/dl Hemoglobin A1c 6.5 H (4.5-5.6) % Calcium 9.9 (8.6-10.3) mg/dl Magnesium 1.7 (1.7-2.4) mg/dl Total Bilirubin 0.5 (0.2-1.0) mg/dl AST 17 (13-39) U/L ALT 17 (7-52) U/L Alkaline Phosphatase 31 L (34-104) U/L Total Protein 7.7 (6.0-8.3) gm/dl Albumin 4.4 (3.4-5.0) gm/dl Globulin 3.3 (2.5-4.0) gm/dl Albumin/Globulin Ratio 1.3 (0.9-2) Lipase 4 L (11-82) U/L TSH 1.903 (0.300-4.500) uIu/ml Urine Color Yellow Urine Appearance Clear (Clear) Urine pH 5.0 (4.5-7.5) Ur Specific [place] 1.022 (1.000-1.030) Urine Protein Negative (Negative) Urine Glucose (UA) Negative (Negative) Urine Ketones Negative (Negative) Urine Blood 2+ H (Negative) Urine Nitrite Negative (Negative) Urine Bilirubin Negative (Negative) Urine Urobilinogen Negative (Negative) Ur Leukocyte Esterase Negative (Negative) Urine WBC (Auto) 1-5 (0-5) /hpf Urine RBC (Auto) 10-30 H (0-4) /hpf U Hyaline Cast (Auto) 1-5 (0-5) /lpf U Epithel Cells (Auto) 0-5 (0-5) /lpf Urine Bacteria (Auto) Negative (Negative) Imaging Data Attestation: I personally reviewed and interpreted this imaging study as follows: Radiologist's Impression: Abdomen/Pelvis CT 07/07/23 12:25 CT abd pelvis IV con only CLINICAL HISTORY: abdominal pain TECHNIQUE: Helical axial images of the abdomen and pelvis were obtained and displayed. Automated dose lowering techniques and/or adjustment according to patient size were utilized for this exam. This exam was performed with intravenous contrast. CT DOSE: 1079.98 mGy.cm COMPARISON: Comparison is made to PET/CT 03/22/2023 FINDINGS: Lower chest: No acute abnormality. Liver: Unremarkable. No focal lesions are seen. Gallbladder and biliary tree: No calcified gallstones. Normal caliber wall. No intra- or extrahepatic biliary ductal dilation. Pancreas: Fatty replacement of the pancreas is seen. Spleen: Unremarkable. Adrenals: Unremarkable. Kidneys and ureters: There is a 2 mm stone in the distal left ureter with mild hydroureter but no significant hydronephrosis. Additional nonobstructive stone is seen on the right. Bladder: Limited evaluation due to underdistention. Reproductive organs: Patient is status post hysterectomy. Bowel: The appendix is normal. Numerous diverticula are seen. There is fat stranding about a portion of the sigmoid colon. There is increased enhancement and wall thickening and a portion of the ileum. There is a small hiatal hernia. Lymph nodes Retroperitoneal: Unremarkable. Pelvic: Unremarkable. Mesenteric: Unremarkable. Peritoneum: Trace pneumoperitoneum is seen. Fat stranding is seen in the pelvis. Vessels: Atherosclerotic calcifications are seen. Abdominal wall: Unremarkable. Bones: Left lucent lesion is seen in the iliac crest. Degenerative changes are seen in the spine. IMPRESSION: There is pneumoperitoneum and fat stranding in the pelvis. This appears to surround the region of thickened ileum. Findings may represent infectious/inflammatory ileitis, malignancy, or diverticulitis. The pneumoperitoneum may be secondary to prostatectomy 8 weeks ago, bowel perforation is less likely but cannot be excluded. ACT 112: Negative or not required by law. Electronically signed by: Royal Brown M.D. 07/07/2023 2:12 PM MDM Narrative Continuous patient monitor: Order was placed for continuous patient monitor. Patient was placed on the patient monitor. Patient was noted to be in normal sinus rhythm at an initial rate of 90 bpm. The patient is a 67-year-old male who presents today complaining of abdominal pain. Pain started suddenly a few hours ago. Patient does have guarding on exam. Labs revealed a leukocytosis of 20,000. CT scan did show pneumoperitoneum and fat stranding. Radiology felt that this could be due to the prostatectomy, however with the leukocytosis and significant pain/acute abdomen I do feel this needs to be evaluated by surgery. Consulted Dr. Medina with general surgery who evaluated the patient and agreed to take him to the OR for further management. Patient agreeable with the plan. Patient taken to the OR in stable condition. Critical Care I have personally spent 32 minutes of critical care time in the direct management of this patient. This includes bedside care, interpretation of diagnostic studies, and testing, discussion with consultants, patient, and other required patient management activities. These 32 minutes is in excess of all separately billable procedures. Attending Attestation: I Jann Catalan MD I have reviewed the advanced practitioner's documentation and agree with the plan of care. I accept the responsibility for the associated risk of managing the patient. Leukocytosis on blood work but abdominal CT report significant for finding of pneumoperitoneum concerning for bowel perforation in the pelvis. Emergent surgical consultation and covered broadly with antibiotics. OR for definite care and then admission. Impression Pneumoperitoneum, Leukocytosis, Diffuse abdominal pain Critical Care Time Critical Care Time: Yes Total Critical Care Time: 32 Discharge Plan Visit Data Chief Complaint: Abdominal Pain Stated Complaint: ABDOMINAL PAIN ED Provider: Jann Catalan ED Midlevel Provider: Roxie Sepulveda Discharge Problem: Pneumoperitoneum, Leukocytosis, Diffuse abdominal pain Patient Disposition: Admitted As Inpatient Discharge Instructions Interventions: ED Discharge Assessment Last Done: 07/07/23 16:28 Discharge Problem: Leukocytosis Qualifiers: Leukocytosis type: unspecified Qualified Code(s): D72.829 - Elevated white blood cell count, unspecified
[2023-07-07] MEDS: MoRPHine SULFATE 10 MG/ML CARP/VIAL IV STA (12:39)
[2023-07-07] MEDS: ONDANSETRON INJ 2 MG/ML 2 ML VIAL IV STA (12:39)
[2023-07-07] MEDS: SODIUM CHLORIDE 0.9% 1,000 ML IV ONE (12:42)
[2023-07-07 12:44] LABS: Basophils # (auto) 0.04 K/uL (0.00-0.20); Basophils % (auto) 0.2 %; Eosinophils # (auto) 0.02 K/uL (0.00-0.50); Eosinophils % (auto) 0.1 %; Hematocrit (blood only) 42.7 % (42.0-52.0); Hemoglobin 14.8 g/dl (14.0-18.0); Immature Granulocytes % (auto) 0.5 %; Lymphocytes # (auto) 1.38 K/uL (1.20-3.40); Lymphocytes % (auto) 6.7 %; Mean Corpuscular Hemoglobin 31.4 pg (25.0-34.0); Mean Corpuscular Hgb Conc 34.7 g/dL (32.0-36.0); Mean Corpuscular Volume 90.7 fL (80.0-100.0); Mean Platelet Volume 9.8 fL (9.4-12.4); Monocytes # (auto) 0.53 K/uL (0.11-0.59); Monocytes % (auto) 2.6 %; Neutrophils # (auto) 18.38 K/uL (1.40-6.50); Neutrophils % (auto) 89.9 %; Platelet Count 283 K/uL (130-400); RDW Standard Deviation 42.6 fL (36.4-46.3); Red Blood Count 4.71 M/uL (4.70-6.10); White Blood Count 20.45 K/ul (4.8-10.8)
[2023-07-07 12:57] LABS: Appearance Urine Clear (Clear); Bacteria Urine Automated Negative (Negative); Bilirubin Urine Negative (Negative); Blood Urine 2+ (Negative); Color Urine Yellow; Epithelial Cell Urine Auto 0-5 /lpf (0-5); Glucose Urine UA Negative (Negative); Ketones Urine Negative (Negative); Leukocyte Esterase Urine Negative (Negative); Nitrite Urine Negative (Negative); Protein Urine Negative (Negative); Specific Gravity Urine 1.022 (1.000-1.030); Urobilinogen Urine Negative (Negative)
[2023-07-07 12:59] LABS: Albumin Globulin Ratio 1.3 (0.9-2); Albumin Level 4.4 gm/dl (3.4-5.0); BUN Creatinine Ratio 25.6 (10-20); Bilirubin,Total 0.5 mg/dl (0.2-1.0); Calcium 9.9 mg/dl (8.6-10.3); Creatinine Clr Calc Pharmacy 92.3 ml/min; Est GFR (African American) 106.7 ml/min; Est GFR (Non-African American) 92.1 ml/min; Globulin 3.3 gm/dl (2.5-4.0); Potassium 4.1 mmol/L (3.5-5.1); Total Protein 7.7 gm/dl (6.0-8.3)
[2023-07-07] MEDS: OPTIRAY 320 100ml IV ONE (13:16)
[2023-07-07] MEDS ORDERED: VANCOMYCIN CONSULT ACTIVE PRN (14:15)
--- NOTE | 2023-07-07 14:15 | CT Scan Report ---
CT abd pelvis IV con only CLINICAL HISTORY: abdominal pain TECHNIQUE: Helical axial images of the abdomen and pelvis were obtained and displayed. Automated dose lowering techniques and/or adjustment according to patient size were utilized for this exam. This e xam was performed with intravenous contrast. CT DOSE: 1079.98 mGy.cm COMPARISON: Comparison is made to PET/CT 03/22/2023 FINDINGS: Lower chest: No acute abnormality. Liver: Unremarkable. No focal lesions are seen. Gallbladder and biliary tree: No calcified gallstones. Normal caliber wall. No intra- or extrahepatic biliary ductal dilation. Pancreas: Fatty replacement of the pancreas is seen. Spleen: Unremarkable. Adrenals: Unremarkable. Kidneys and ureters: There is a 2 mm stone in the distal left ureter with mild hydroureter but no sig nificant hydronephrosis. Additional nonobstructive stone is seen on the right. Bladder: Limited evaluation due to underdistention. Reproductive organs: Patient is status post hysterectomy. Bowel: The appendix is normal. Numerous diverticula are seen. There is fat stranding about a portion of the sigmoid colon. There is increased enhancement and wall thickening and a portion of the ileum. There is a small hiatal hernia. Lymph nodes Retroperitoneal: Unremarkable. Pelvic: Unremarkable. Mesenteric: Unremarkable. Peritoneum: Trace pneumoperitoneum is seen. Fat stranding is seen in the pelvis. Vessels: Atherosclerotic calcifications are seen. Abdominal wall: Unremarkable. Bones: Left lucent lesion is seen in the iliac crest. Degenerative changes are seen in the spine. IMPRESSION: There is pneumoperitoneum and fat stranding in the pelvis. This appears to surround the region of thi ckened ileum. Findings may represent infectious/inflammatory ileitis, malignancy, or diverticulitis. The pneumoperitoneum may be secondary to prostatectomy 8 weeks ago, bowel perforation is less likely but cannot be excluded. ACT 112: Negative or not required by law. Electronically signed by: Royal Brown M.D. 07/07/2023 2:12 PM
[2023-07-07] MEDS: PIPERACILLIN/TAZOBACTAM 4.5 GM/100 ML BAG IV ONE (14:28)
[2023-07-07] MEDS: HYDROmorphone INJ 1 MG/ML SYRINGE IV STA (14:30)
[2023-07-07] MEDS: VANCOMYCIN HCL 1,750 MG in SODIUM CHLORIDE 0.9% 500 ML IV ONE (14:45)
--- NOTE | 2023-07-07 15:10 | Surgery Consultation ---
Date of Consultation July 07, 2023 Assessment & Plan (1) Acute abdomen: Pt with recent prostatectomy now with acute abdomen on physical exam, diffuse abdominal pain, tachycardia and leukocytosis. CT scan shows pneumoperitoneum and inflammation in pelvis. Likely has perforated bowel - reviewed with family that most likely source is diverticulitis. Would recommend exploratory laparotomy, bowel resection, likely ostomy. Reviewed risks with family - bleeding, infection, postop ileus, anastamotic leak, injury to other structures. Consent signed. Will plan on OR today. History of Present Illness Reason for Consultation: abdominal pain Requesting Physician: Roxie Sepulveda Attending Physician: Roxie Sepulveda History of Present Illness 67 yr old man (daughter is Mary Rosenbaum, RAND here at [facility]) with history of recent robotic prostatectomy 8 weeks ago who was doing well until yesterday when he developed some mild abdominal discomfort. Took pepto bismol. [place] better and went to grandchild's wrestling match today. There developed more sudden onset of diffuse severe abdominal pain, no specific location, 10/10 in intensity, worse with movement, mild nausea. No fevers/ chills. No similar episodes. Was having loose stools following his surgery but this changed and he did need to strain to have a bowel movement this morning. Received morphine with very little change in pain intensity. Only prior abdominal operation was robotic prostatectomy. Allergies Allergy/AdvReac Type Severity Reaction Status Date / Time No Known Allergies Allergy Verified 07/07/23 15:03 Home Medications Medication Instructions Recorded Confirmed Type atorvastatin 20 mg tablet 10 mg PO QAM 07/25/22 07/07/23 History doxycycline hyclate 20 mg tablet 20 mg PO BID 07/25/22 07/07/23 History metronidazole 0.75 % topical cream 1 applic topical UD PRN rosacea 07/25/22 07/07/23 History allopurinol 300 mg tablet 300 mg PO QAM 05/01/23 07/07/23 History amlodipine 10 mg-valsartan 320 mg 1 tab PO QAM 05/01/23 07/07/23 History tablet prednisone 5 mg tablet 5 mg PO DAILY 07/07/23 07/07/23 History sildenafil 100 mg tablet 100 mg PO DAILY PRN Sexual Activity 07/07/23 07/07/23 History Patient History Medical History Encounter for pre-operative examination History of COVID-19 Mid December 2022- Fever, aches and pains "resolved" "Questionable initiated PMR" Borderline diabetes History of kidney stones History of gout Rosacea Claustrophobia PMR (polymyalgia rheumatica) HTN (hypertension) Prostate cancer Dx July 2022 Surgical History History of melanoma excision History of shoulder surgery right History of endoscopy History of colonoscopy History of total left hip arthroplasty Family History Other No pertinent family history Social History Smoking Status: Never smoker Tobacco Type: Cigars Cigarettes Per Day: in summer cigars/advised npo; Do You Dip or Chew Tobacco: No; Hx Alcohol Use: Yes Alcohol type: hard liquor Hx Substance Use: No Preferred Language: Central [place] Communication Ability: Effective Church Musician Required: No Beliefs That Will Affect Care: None marital status: Current Living Situation: Spouse and Family Current Living Situation Comment: and adult mentally challenged daughter. current occupational status: retired Feels Safe at Home: Yes Dental Care, Regularly: Yes Seatbelt Use: always Sunscreen Use: Yes Assistive Devices: None Review of Systems Review of Systems: All systems reviewed & are unremarkable except as noted in HPI & below Physical Exam Constitutional: + acute distress and + ill appearing Eyes: PERRL, conjunctivae normal, anicteric sclerae ENMT: Ears: no hearing impairment Neck: normal visual inspection Respiratory: normal respiratory effort, lungs clear to auscultation Cardiovascular: Rate/Rhythm: + tachycardic Heart Sounds: normal S1 and normal S2; no murmur Gastrointestinal (Abdomen): Inspection/Auscultation: + abdomen distended, + abdominal surgical incision (clean from robotic prostatectomy) and + hypoactive bowel sounds Percussion/Palpation: + abdomen tender (diffusely), + guarding and + abdomen rigid Musculoskeletal: no cyanosis or clubbing, extremities motor strength 5/5 Neurologic: awake; no focal motor deficits Psychiatric: A+Ox3, euthymic affect Results & Data Vital Signs (Past 12 Hours) Vital Signs Temp Pulse Pulse Resp BP BP Pulse Ox 07/07/23 15:00 115 H 23 187/103 H 96 07/07/23 14:00 100 H 22 157/78 H 95 07/07/23 12:49 84 07/07/23 12:43 85 16 97 07/07/23 12:00 36.8 C 92 H 18 161/72 H 95 07/07/23 11:58 88 16 150/79 H 97 O2 Del Method 07/07/23 15:00 Room Air 07/07/23 14:00 Room Air 07/07/23 12:49 07/07/23 12:43 Room Air 07/07/23 12:00 Room Air 07/07/23 11:58 Room Air Laboratory Results 07/07/23 07/07/23 Range/Units 12:45 12:12 WBC 20.45 H (4.8-10.8) K/ul RBC 4.71 (4.70-6.10) M/uL Hgb 14.8 (14.0-18.0) g/dl Hct 42.7 (42.0-52.0) % MCV 90.7 (80.0-100.0) fL MCH 31.4 (25.0-34.0) pg MCHC 34.7 (32.0-36.0) g/dL RDW Std Deviation 42.6 (36.4-46.3) fL RDW Coeff of Magdi 13.0 (11.5-14.5) % Plt Count 283 (130-400) K/uL MPV 9.8 (9.4-12.4) fL Immature Gran % (Auto) 0.5 % Neut % (Auto) 89.9 % Lymph % (Auto) 6.7 % [place] % (Auto) 2.6 % Eos % (Auto) 0.1 % Baso % (Auto) 0.2 % Neut # (Auto) 18.38 H (1.40-6.50) K/uL Lymph # (Auto) 1.38 (1.20-3.40) K/uL [place] # (Auto) 0.53 (0.11-0.59) K/uL Eos # (Auto) 0.02 (0.00-0.50) K/uL Baso # (Auto) 0.04 (0.00-0.20) K/uL Immature Gran # (Auto) 0.10 (0.01-0.20) K/uL Sodium 140 (136-145) mmol/L Potassium 4.1 (3.5-5.1) mmol/L Chloride 103 (98-107) mmol/L Carbon Dioxide 27 (21-32) mmol/L Anion Gap 10 (3-11) BUN 20 (6-23) mg/dl Creatinine 0.78 (0.6-1.4) mg/dl Est Cr Clr Drug Dosing 92.3 ml/min Est GFR ( Amer) 106.7 ml/min Est GFR (Non-Af Amer) 92.1 ml/min BUN/Creatinine Ratio 25.6 H (10-20) Glucose 115 H (70-99(Fasting)) mg/dl Calcium 9.9 (8.6-10.3) mg/dl Total Bilirubin 0.5 (0.2-1.0) mg/dl AST 17 (13-39) U/L ALT 17 (7-52) U/L Alkaline Phosphatase 31 L (34-104) U/L Total Protein 7.7 (6.0-8.3) gm/dl Albumin 4.4 (3.4-5.0) gm/dl Globulin 3.3 (2.5-4.0) gm/dl Albumin/Globulin Ratio 1.3 (0.9-2) Lipase 4 L (11-82) U/L Urine Color Yellow Urine Appearance Clear (Clear) Urine pH 5.0 (4.5-7.5) Ur Specific [place] 1.022 (1.000-1.030) Urine Protein Negative (Negative) Urine Glucose (UA) Negative (Negative) Urine Ketones Negative (Negative) Urine Blood 2+ H (Negative) Urine Nitrite Negative (Negative) Urine Bilirubin Negative (Negative) Urine Urobilinogen Negative (Negative) Ur Leukocyte Esterase Negative (Negative) Urine WBC (Auto) 1-5 (0-5) /hpf Urine RBC (Auto) 10-30 H (0-4) /hpf U Hyaline Cast (Auto) 1-5 (0-5) /lpf U Epithel Cells (Auto) 0-5 (0-5) /lpf Urine Bacteria (Auto) Negative (Negative) Diagnostic Findings CT abd pelvis IV con only CLINICAL HISTORY: abdominal pain TECHNIQUE: Helical axial images of the abdomen and pelvis were obtained and displayed. Automated dose lowering techniques and/or adjustment according to patient size were utilized for this exam. This exam was performed with intravenous contrast. CT DOSE: 1079.98 mGy.cm COMPARISON: Comparison is made to PET/CT 03/22/2023 FINDINGS: Lower chest: No acute abnormality. Liver: Unremarkable. No focal lesions are seen. Gallbladder and biliary tree: No calcified gallstones. Normal caliber wall. No intra- or extrahepatic biliary ductal dilation. Pancreas: Fatty replacement of the pancreas is seen. Spleen: Unremarkable. Adrenals: Unremarkable. Kidneys and ureters: There is a 2 mm stone in the distal left ureter with mild hydroureter but no significant hydronephrosis. Additional nonobstructive stone is seen on the right. Bladder: Limited evaluation due to underdistention. Reproductive organs: Patient is status post hysterectomy. Bowel: The appendix is normal. Numerous diverticula are seen. There is fat stranding about a portion of the sigmoid colon. There is increased enhancement and wall thickening and a portion of the ileum. There is a small hiatal hernia. Lymph nodes Retroperitoneal: Unremarkable. Pelvic: Unremarkable. Mesenteric: Unremarkable. Peritoneum: Trace pneumoperitoneum is seen. Fat stranding is seen in the pelvis. Vessels: Atherosclerotic calcifications are seen. Abdominal wall: Unremarkable. Bones: Left lucent lesion is seen in the iliac crest. Degenerative changes are seen in the spine. IMPRESSION: There is pneumoperitoneum and fat stranding in the pelvis. This appears to surround the region of thickened ileum. Findings may represent infectious/inflammatory ileitis, malignancy, or diverticulitis. The pn eumoperitoneum may be secondary to prostatectomy 8 weeks ago, bowel perforation is less likely but cannot be excluded. ACT 112: Negative or not required by law. CT scan personally reviewed and interpreted - there is more pneumo than expected for surgery 8 weeks ago.
[2023-07-07] MEDS ORDERED: ROCURONIUM BROMIDE 10 MG/ML 5 ML VIAL IV ONE ×2 (15:14→16:58)
[2023-07-07] MEDS ORDERED: HYDROmorphone INJ 2 MG/ML SYR/VIAL ONE (15:14)
[2023-07-07] MEDS ORDERED: fentaNYL citrate PF 100 MCG/2 ML VIAL ONE ×2 (15:14→18:22)
[2023-07-07] MEDS ORDERED: PROPOFOL IV EMULSION 10 MG/ML 20 ML VIAL IV ONE (15:14)
[2023-07-07] MEDS ORDERED: SUCCINYLCHOLINE 100MG/5ML SYR IV ONE (15:14)
[2023-07-07] MEDS ORDERED: KETAMINE HCL INJ 50 MG/ML 10 ML VIAL ONE (16:04)
[2023-07-07] MEDS ORDERED: ePHEDrine sulfate 50 MG/ML AMP IV PRN (16:31)
[2023-07-07] MEDS ORDERED: ATROPINE SULFATE 0.1 MG/ML 10ML SYR IV PRN (16:31)
[2023-07-07] MEDS ORDERED: HYDROmorphone INJ 2 MG/ML SYR/VIAL IV PRN (16:31)
[2023-07-07] MEDS ORDERED: fentaNYL citrate PF 100 MCG/2 ML VIAL IV PRN (16:31)
[2023-07-07] MEDS ORDERED: ONDANSETRON INJ 2 MG/ML 2 ML VIAL IV PRN ×2 (16:31→20:31)
--- NOTE | 2023-07-07 16:31 | Anesthesiology Consultation ---
Date of Service July 07, 2023 Assessment & Plan ASA [id number] Proposed Anesthesia Anesthesia Type: General Risk / Benefits Reviewed With: PT / POA / Parent / Guardian, Accepts Plan and Informed Consent Obtained History Surgery Operation Date: 07/07/23 16:00 Proposed Procedures p Bowel Resection - Carmen Medina MD Height/Weight Height: 5 ft 10 in Weight: 86 kg Allergies Allergy/AdvReac Type Severity Reaction Status Date / Time No Known Allergies Allergy Verified 07/07/23 15:03 Medications Home Medications Medication Instructions Recorded Confirmed Last Taken atorvastatin 20 mg tablet 10 mg PO QAM 07/25/22 07/07/23 07/07/23 doxycycline hyclate 20 mg tablet 20 mg PO BID 07/25/22 07/07/23 07/07/23 08:00 metronidazole 0.75 % topical cream 1 applic topical UD PRN rosacea 07/25/22 07/07/23 05/07/23 07:00 allopurinol 300 mg tablet 300 mg PO QAM 05/01/23 07/07/23 07/07/23 amlodipine 10 mg-valsartan 320 mg 1 tab PO QAM 05/01/23 07/07/23 07/07/23 tablet prednisone 5 mg tablet 5 mg PO DAILY 07/07/23 07/07/23 07/07/23 sildenafil 100 mg tablet 100 mg PO DAILY PRN Sexual Activity 07/07/23 07/07/23 Unknown Active Medications Generic Name Dose Route Start Last Admin Trade Name Freq PRN Reason Stop Dose Admin Vancomycin HCl 1,750 mg/ 535 mls @ 200 mls/hr 07/07/23 14:15 07/07/23 14:45 Sodium Chloride IV 07/07/23 16:55 200 mls/hr NOW ONE Administration Past Medical History Medical History Encounter for pre-operative examination History of COVID-19 Mid December 2022- Fever, aches and pains "resolved" "Questionable initiated PMR" Borderline diabetes History of kidney stones History of gout Rosacea Claustrophobia PMR (polymyalgia rheumatica) HTN (hypertension) Prostate cancer Dx July 2022 Exercise / Class Metabolic Activity II 4-5 Yardwork/Stairs/Walk up hill Past Family History Family History Other No pertinent family history Past Surgical History Surgical History History of melanoma excision History of shoulder surgery right History of endoscopy History of colonoscopy History of total left hip arthroplasty Past Anesthesia History No Hx of Anesthesia Complications and No Family Hx of Anesthesia Complications History of PONV No Hx of PONV and No Hx of Motion Sickness Social History Smoking Status: Never smoker Smoking cigarettes per day: in summer cigars/advised npo Do You Dip or Chew Tobacco: No Hx Alcohol Use: Yes Alcohol type: hard liquor Hx Substance Use: No substance use type: does not use Review of Systems denies fever/cough/ colds/ chest pain/ SOB/ ALICIA denies ALICIA Physical Exam Vital Signs Last Vital Signs Temp 36.8 C 07/07/23 12:00 Pulse 115 H 07/07/23 15:00 Resp 23 07/07/23 15:00 BP 187/103 H 07/07/23 15:00 Pulse Ox 96 07/07/23 15:00 O2 Del Method Room Air 07/07/23 15:00 ENMT Mouth: no TMJ abnormality and no dentition abnormality Thyromental Distance: > or= 3.5 Finger Breadths Mallampati Class: II Neck neck extension not limited Respiratory normal respiratory effort; no respiratory distress Auscultation: lungs clear to auscultation bilaterally Cardiovascular Rate/Rhythm: regular rate and regular rhythm Neurologic moves all extremities Psychiatric Orientation: alert and oriented x 3 Testing Laboratory Results 07/07/23 12:12 07/07/23 12:12 Urine Color Yellow 07/07/23 12:45 Urine Appearance Clear (Clear) 07/07/23 12:45 Urine pH 5.0 (4.5-7.5) 07/07/23 12:45 Ur Specific [place] 1.022 (1.000-1.030) 07/07/23 12:45 Urine Protein Negative (Negative) 07/07/23 12:45 Urine Glucose (UA) Negative (Negative) 07/07/23 12:45 Urine Ketones Negative (Negative) 07/07/23 12:45 Urine Nitrite Negative (Negative) 07/07/23 12:45 Ur Leukocyte Esterase Negative (Negative) 07/07/23 12:45 Urine WBC (Auto) 1-5 /hpf (0-5) 07/07/23 12:45 Urine RBC (Auto) 10-30 /hpf (0-4) H 07/07/23 12:45 U Hyaline Cast (Auto) 1-5 /lpf (0-5) 07/07/23 12:45 U Epithel Cells (Auto) 0-5 /lpf (0-5) 07/07/23 12:45 Urine Bacteria (Auto) Negative (Negative) 07/07/23 12:45
[2023-07-07] MEDS: ACETAMINOPHEN 1000 MG/100 ML IV IV ONE (17:09)
[2023-07-07] MEDS ORDERED: PHENYLEPHRINE 100MCG/ML 10ML SYR IV ONE (17:25)
[2023-07-07] MEDS ORDERED: SUGAMMADEX SODIUM 200 MG/2 ML VIAL IV ONE (17:32)
[2023-07-07] MEDS: BUPIVACAINE 0.5 % 5 MG/1 ML MPF 30ML VIAL ONE ×2 (18:45)
[2023-07-07] MEDS ORDERED: ePHEDrine sulfate 50 MG/5 ML SYR ONE (18:52)
--- NOTE | 2023-07-07 19:24 | Operative Report ---
Post Operative Report Pre & Post Diagnosis Operation Date: 07/07/23 16:00 Pre-Op Diagnosis: pneumoperitoneum severe abdominal pain Post-Op Diagnosis: perforated sigmoid diverticulitis I identified the patient and participated in the time-out.: Yes Procedure Operation Date: 07/07/23 16:00 Actual Procedures p Exploratory Laparotomy, sigmoid colectomy, Creation of Colostomy(Not Applicable) - Carmen Medina MD Surgeon Carmen Medina MD Private Pilot none Estimated Blood Loss 20 Findings Consistent with Post-Op Diagnosis perforated sigmoid diverticulitis in pelvis with pus in lower abdomen; no free stool Fluids 1500 cc Specimens sigmoid colon Drains 10 flat CHRISTY pelvis Anesthesia Type General Complications none Disposition Accompanied Patient To Recovery: No Indications 67 yr old man with acute abdomen and CT scan showing pneumoperitoneum. Consented for exploratory laparotomy, bowel resection, possible ostomy. Description of Procedure The patient received vancomycin and Zosyn preoperatively. He had placement of sequential compression devices. His abdomen was sterilely prepped and draped after induction of general endotracheal anesthesia. He was noted to be febrile just before the surgery began. A lower abdominal incision in the midline was made. The abdomen was sharply entered and free pus was noted. This appeared to be arising from the pelvis. The incision was then extended lower to the pubic area and just to above the umbilicus. Bookwalter retractor was placed for exposure. The upper abdomen was normal. There was a loop of sigmoid colon that was adherent in the pelvis which was quite inflamed with evidence of contained perforation and pus surrounding. This was mobilized up into the wound. The white line of Toldt was freed along the lateral border of the sigmoid colon extending up towards the left colon. The spot was chosen for division proximal to the perforation and this was divided with a firing of the DENITA purple load stapler and a second area was chosen along the proximal rectum and this was divided with a firing of the DENITA purple load stapler the mesentery of the sigmoid colon was taken sequentially between ties and huddleston loads of the stapler this was then resected off the field. 2-0 Prolene sutures were used to marquez the ends of the rectal stump. The abdomen was irrigated and suctioned clear. The colostomy was matured in the left lower abdomen. A ostomy site was chosen and a small circular Diskus of skin and subcutaneous tissue removed. The fascia was divided in a cruciate fashion and the rectus muscle spread. The abdomen was entered and the ostomy brought to lie up into the wound. The abdomen was irrigated and suctioned clear. The a 10 flat CHRISTY was brought through a stab stab incision in the right lower quadrant and placed into the pelvis. This was secured to the skin with a nylon stitch. Gloves were changed and the fascia was then closed with 2 running looped 1 PDS sutures. The skin was loosely closed with chito with iodoform tucked in between and the openings. The ostomy was then matured with silk sutures and Vicryl sutures. An ostomy appliance was applied. He was awakened and taken to recovery in stable condition. I attest to the content of the Intraoperative Record and any orders documented therein. Any exceptions are noted below.
--- NOTE | 2023-07-07 19:52 | Anesthesiology Progress Note ---
Date of Service July 07, 2023 Anesthesia Post Procedure Vital Signs Vital Signs: Temp Pulse Pulse Resp BP BP Pulse Ox 07/07/23 15:00 115 H 23 187/103 H 96 07/07/23 14:00 100 H 22 157/78 H 95 07/07/23 12:49 84 07/07/23 12:43 85 16 97 07/07/23 12:00 36.8 C 92 H 18 161/72 H 95 07/07/23 11:58 88 16 150/79 H 97 O2 Del Method 07/07/23 15:00 Room Air 07/07/23 14:00 Room Air 07/07/23 12:49 07/07/23 12:43 Room Air 07/07/23 12:00 Room Air 07/07/23 11:58 Room Air Pain Intensity Abdomen: Pain Intensity: 10 Transfer of Care Handoff Completed per policy Notes Mental Status: alert / awake / arousable and participated in evaluation Patient Amnestic to Procedure: Yes Nausea / Vomiting: adequately controlled Pain: adequately controlled Airway Patency, RR, SpO2: stable & adequate BP & HR: stable & adequate Hydration State: stable & adequate Anesthetic Complications: no major complications apparent and Pt Satisfied with anesthetic care
[2023-07-07] MEDS ORDERED: MoRPHine SULFATE 2 MG/ML CARP IV PRN (20:31)
[2023-07-07] MEDS: HYDROmorphone INJ 0.5 MG/0.5 ML SYR IV STA (20:33)
--- NOTE | 2023-07-07 20:51 | Pharmacy Report ---
Pharmacy PK ABX Note - Date of Service July 07, 2023 - Assessment and Plan Assessment 67 year old M receiving vancomycin/Zosyn for treatment of diverticulits/perforated bowel. Pertinent microbiologic data includes: abdominal culture pending. Day # 1 of antimicrobial therapy. Plan Vancomycin * Loading dose: 1750 mg IV x 1 * Maintenance dose: 1250 mg IV every 12 hours * Regimen is predicted to achieve target AUC/DAYANA of 400-600 mg/L.hr * Trough level ordered for: 07/09/23 @1130. Pharmacy will continue to follow and will adjust dose/frequency as necessary. Thank you. Pharmacy has transitioned to AUC monitoring for vancomycin. AUC/DAYANA is the prefe rred PK/PD target and is associated with decreased risk of nephrotoxicity compared to traditional trough targets.
[2023-07-07 21:03] LABS: Magnesium 1.7 mg/dl (1.7-2.4)
[2023-07-07] MEDS: LACTATED RINGER'S 1,000 ML IV SCH (21:09)
[2023-07-07 21:39] LABS: Thyroid Stimulating Hormone 1.903 uIu/ml (0.300-4.500)
[2023-07-07 21:48] LABS: Estimated Average Glucose 140 mg/dl; Hemoglobin A1C 6.5 % (4.5-5.6)
[2023-07-07] MEDS: MAGNESIUM SULFATE / D5W 1 GM/100 ML BAG IV SCH (21:50)
[2023-07-07] MEDS: PIPERACILLIN/TAZOBACTAM 4.5 GM in DEXTROSE 5% MINI-B 100 ML IV SCH (21:52)
[2023-07-07] MEDS: HEPARIN SOD 5,000 UNIT/0.5 ML VIAL SQ SCH (21:55)
[2023-07-07] MEDS: KETOROLAC TROMETHAMINE 15 MG/ML VIAL IV ONE (22:07)
--- NOTE | 2023-07-07 22:07 | Electrocardiogram Report ---
Test Reason : Blood Pressure : / mmHG Vent. Rate : 084 BPM Atrial Rate : 084 BPM P-R Int : 172 ms QRS Dur : 082 ms QT Int : 342 ms P-R-T Axes : 066 -31 044 degrees QTc Int : 404 ms Normal sinus rhythm Left axis deviation Nonspecific T wave abnormality Abnormal ECG When compared with ECG of 23-APR-2023 10:00, No significant change was found Confirmed by Oral Abdalla ([id number]) on 07/07/2023 10:06:44 PM Referred By: REFERRED SELF Confirmed By:Oral Abdalla
--- NOTE | 2023-07-07 22:09 | Hospitalist Consultation ---
Date of Consultation July 07, 2023 Assessment & Plan (1) Pneumoperitoneum: Final Assessment and Recommendations as follows : Sepsis secondary to perforated sigmoid diverticulitis status post surgery Immunocompromised patient, hx PMR currently on steroid Rx Patient currently comfortable. hypertension, stable hyperlipidemia, on statin Rx prostate cancer status post surgery melanoma status post surgery prediabetes, recent outpatient hemoglobin A1c of 6.06 March 2023, technically meets DM 2 diagnostic criteria but attributed by patient PCP to steroid Rx for PMR hx gout, on allopurinol rosacea on doxycycline. CS, Zosyn DC vancomycin if surgery agreeable Daily IV Solu-Medrol equivalent to daily home prednisone course for PMR while patient strictly n.p.o. Resume home BP meds once diet advanced from strict n.p.o. status ISS BG goal 1 10-1 40, update hemoglobin A1c DVT prophylaxis Heparin subcu as per postop orders Thank you very much for this consultation. Dr. Rain will follow patient's progress. Text document was generated using [employer] voice recognition software. It may contain grammatical or spelling errors. Kindly contact undersigned for clarification of any documentation item in question. History of Present Illness Reason for Consultation: Postop medical management Requesting Physician: Dr. Medina Attending Physician: Carmen Medina MD History of Present Illness PCP : Dr. Hines History obtained from patient, family, and records. Medical history significant for hypertension, hyperlipidemia, prostate cancer status post surgery, melanoma status post surgery, PMR currently on steroid Rx, prediabetes, gout, rosacea on doxycycline. Last confinement May 2023 under Urology service for prostate cancer status post elective robotic assisted laparoscopic prostatectomy and pelvic lymph node dissection. Postop course unremarkable. Patient noted mild achy lower abdominal pain symptoms yesterday associated with constipation. Hard bowel movements noted today as well followed by worsening abdominal pain. Some nausea, no emesis. No fever, some chills. No headache, no chest pain, no SOB. Patient brought to ER for evaluation. CT abdomen pelvis showed pneumoperitoneum. Patient received Vancomycin and Zosyn at the ER. Patient subsequently admitted by General Surgery after ex lap. Patient found to have perforated sigmoid diverticulitis and pelvic pus intraoperatively. Subsequent sigmoid colectomy and colostomy done. Patient currently comfortable at [facility]. Medical History as above Surgical History : Bowel surgery, prostate biopsy, biceps tendon release, hip surgery Family History : Gout, heart disease, hyperlipidemia, cognitive impairment Personal/Social history : Non-smoker, occasional EtOH intake, retired cook school cafeteria Allergies Allergy/AdvReac Type Severity Reaction Status Date / Time No Known Allergies Allergy Verified 07/07/23 15:03 Home Medications Medication Instructions Recorded Confirmed Type atorvastatin 20 mg tablet 10 mg PO QAM 07/25/22 07/07/23 History doxycycline hyclate 20 mg tablet 20 mg PO BID 07/25/22 07/07/23 History metronidazole 0.75 % topical cream 1 applic topical UD PRN rosacea 07/25/22 07/07/23 History allopurinol 300 mg tablet 300 mg PO QAM 05/01/23 07/07/23 History amlodipine 10 mg-valsartan 320 mg 1 tab PO QAM 05/01/23 07/07/23 History tablet prednisone 5 mg tablet 5 mg PO DAILY 07/07/23 07/07/23 History sildenafil 100 mg tablet 100 mg PO DAILY PRN Sexual Activity 07/07/23 07/07/23 History Patient History Medical History Encounter for pre-operative examination History of COVID-19 Mid December 2022- Fever, aches and pains "resolved" "Questionable initiated PMR" Borderline diabetes History of kidney stones History of gout Rosacea Claustrophobia PMR (polymyalgia rheumatica) HTN (hypertension) Prostate cancer Dx July 2022 Surgical History History of melanoma excision History of shoulder surgery right History of endoscopy History of colonoscopy History of total left hip arthroplasty Family History Other No pertinent family history Social History Smoking Status: Never smoker Tobacco Type: Cigars Cigarettes Per Day: in summer cigars/advised npo; Do You Dip or Chew Tobacco: No; Hx Alcohol Use: Yes Alcohol type: other Hx Substance Use: No Preferred Language: Qatari Communication Ability: Effective Auto Collision [employer] Instructor Required: No Beliefs That Will Affect Care: None marital status: Current Living Situation: Spouse Current Living Situation Comment: and adult mentally challenged daughter. current occupational status: retired Feels Safe at Home: Yes Safety Concerns: Feels Safe At This Time Dental Care, Regularly: Yes Seatbelt Use: always Sunscreen Use: Yes Assistive Devices: Glasses Review of Systems Review of Systems: As per HPI, all other systems reviewed and negative Physical Exam Physical Exam: GENERAL: Comfortable, pleasant, no respiratory distress SKIN: Normal color, warm HEENT: Arm[place] palpebral conjunctivae, no ptosis, dry buccal mucosa, NGT in place, nasal cannula in place NECK : Supple, no tenderness CHEST : CTA, no tenderness HEART : Tachycardic no obvious murmurs ABDOMEN: Dressing in place, some distention, no overt tenderness EXTREMITIES : No LE swelling/tenderness, no other conspicuous deformities noted NEUROLOGIC : Coherent, no facial asymmetry, no other gross focality Results & Data Results & Data Vital Signs (Past 12 Hours) Vital Signs Temp Pulse Pulse Pulse Resp BP BP 07/07/23 21:52 07/07/23 20:50 36.6 C 110 H 18 113/72 07/07/23 20:20 37.1 C 114 H 18 113/72 07/07/23 20:05 37.3 C 113 H 12 118/70 07/07/23 19:55 116 H 13 114/71 07/07/23 19:45 119 H 17 132/73 07/07/23 19:35 120 H 21 117/88 07/07/23 19:26 37.2 C 120 H 12 124/81 07/07/23 15:00 115 H 23 187/103 H 07/07/23 14:00 100 H 22 157/78 H 07/07/23 12:49 84 07/07/23 12:43 85 16 07/07/23 12:00 36.8 C 92 H 18 161/72 H 07/07/23 11:58 88 16 150/79 H Pulse Ox O2 Del Method O2 Flow Rate 07/07/23 21:52 94 Nasal Cannula 1.5 07/07/23 20:50 93 Oxymask 1.0 07/07/23 20:20 97 Oxymask 2 07/07/23 20:05 95 Oxymask 3 07/07/23 19:55 97 Oxymask 3 07/07/23 19:45 97 Oxymask 3 07/07/23 19:35 98 Oxymask 4 04/06/24 19:26 96 Oxymask 4 07/07/23 15:00 96 Room Air 07/07/23 14:00 95 Room Air 07/07/23 12:49 07/07/23 12:43 97 Room Air 07/07/23 12:00 95 Room Air 07/07/23 11:58 97 Room Air Laboratory Results Laboratory Results WBC 20.45 K/ul (4.8-10.8) H 07/07/23 12:12 RBC 4.71 M/uL (4.70-6.10) 07/07/23 12:12 Hgb 14.8 g/dl (14.0-18.0) 07/07/23 12:12 Hct 42.7 % (42.0-52.0) 07/07/23 12:12 MCV 90.7 fL (80.0-100.0) 07/07/23 12:12 MCH 31.4 pg (25.0-34.0) 07/07/23 12:12 MCHC 34.7 g/dL (32.0-36.0) 07/07/23 12:12 RDW Std Deviation 42.6 fL (36.4-46.3) 07/07/23 12:12 RDW Coeff of Magdi 13.0 % (11.5-14.5) 07/07/23 12:12 Plt Count 283 K/uL (130-400) 07/07/23 12:12 MPV 9.8 fL (9.4-12.4) 07/07/23 12:12 Immature Gran % (Auto) 0.5 % 07/07/23 12:12 Neut % (Auto) 89.9 % 07/07/23 12:12 Lymph % (Auto) 6.7 % 07/07/23 12:12 [place] % (Auto) 2.6 % 07/07/23 12:12 Eos % (Auto) 0.1 % 07/07/23 12:12 Baso % (Auto) 0.2 % 07/07/23 12:12 Neut # (Auto) 18.38 K/uL (1.40-6.50) H 07/07/23 12:12 Lymph # (Auto) 1.38 K/uL (1.20-3.40) 07/07/23 12:12 [place] # (Auto) 0.53 K/uL (0.11-0.59) 07/07/23 12:12 Eos # (Auto) 0.02 K/uL (0.00-0.50) 07/07/23 12:12 Baso # (Auto) 0.04 K/uL (0.00-0.20) 07/07/23 12:12 Immature Gran # (Auto) 0.10 K/uL (0.01-0.20) 07/07/23 12:12 Sodium 140 mmol/L (136-145) 07/07/23 12:12 Potassium 4.1 mmol/L (3.5-5.1) 07/07/23 12:12 Chloride 103 mmol/L (98-107) 07/07/23 12:12 Carbon Dioxide 27 mmol/L (21-32) 07/07/23 12:12 Anion Gap 10 (3-11) 07/07/23 12:12 BUN 20 mg/dl (6-23) 07/07/23 12:12 Creatinine 0.78 mg/dl (0.6-1.4) 07/07/23 12:12 Est Cr Clr Drug Dosing 92.3 ml/min 07/07/23 12:12 Est GFR ( Amer) 106.7 ml/min 07/07/23 12:12 Est GFR (Non-Af Amer) 92.1 ml/min 07/07/23 12:12 BUN/Creatinine Ratio 25.6 (10-20) H 07/07/23 12:12 Glucose 115 mg/dl (70-99(Fasting)) H 07/07/23 12:12 Estimat Average Glucose 140 mg/dl 07/07/23 12:12 Hemoglobin A1c 6.5 % (4.5-5.6) H 07/07/23 12:12 Lactate 1.8 mmol/L (0.4-2.0) 07/07/23 21:09 Calcium 9.9 mg/dl (8.6-10.3) 07/07/23 12:12 Magnesium 1.7 mg/dl (1.7-2.4) 07/07/23 12:12 Total Bilirubin 0.5 mg/dl (0.2-1.0) 07/07/23 12:12 AST 17 U/L (13-39) 07/07/23 12:12 ALT 17 U/L (7-52) 07/07/23 12:12 Alkaline Phosphatase 31 U/L (34-104) L 07/07/23 12:12 Total Protein 7.7 gm/dl (6.0-8.3) 07/07/23 12:12 Albumin 4.4 gm/dl (3.4-5.0) 07/07/23 12:12 Globulin 3.3 gm/dl (2.5-4.0) 07/07/23 12:12 Albumin/Globulin Ratio 1.3 (0.9-2) 07/07/23 12:12 Lipase 4 U/L (11-82) L 07/07/23 12:12 TSH 1.903 uIu/ml (0.300-4.500) 07/07/23 12:12 Urine Color Yellow 07/07/23 12:45 Urine Appearance Clear (Clear) 07/07/23 12:45 Urine pH 5.0 (4.5-7.5) 07/07/23 12:45 Ur Specific [place] 1.022 (1.000-1.030) 07/07/23 12:45 Urine Protein Negative (Negative) 07/07/23 12:45 Urine Glucose (UA) Negative (Negative) 07/07/23 12:45 Urine Ketones Negative (Negative) 07/07/23 12:45 Urine Blood 2+ (Negative) H 07/07/23 12:45 Urine Nitrite Negative (Negative) 07/07/23 12:45 Urine Bilirubin Negative (Negative) 07/07/23 12:45 Urine Urobilinogen Negative (Negative) 07/07/23 12:45 Ur Leukocyte Esterase Negative (Negative) 07/07/23 12:45 Urine WBC (Auto) 1-5 /hpf (0-5) 07/07/23 12:45 Urine RBC (Auto) 10-30 /hpf (0-4) H 07/07/23 12:45 U Hyaline Cast (Auto) 1-5 /lpf (0-5) 07/07/23 12:45 U Epithel Cells (Auto) 0-5 /lpf (0-5) 07/07/23 12:45 Urine Bacteria (Auto) Negative (Negative) 07/07/23 12:45 Impressions Abdomen/Pelvis CT 07/07/23 12:25 CT abd pelvis IV con only CLINICAL HISTORY: abdominal pain TECHNIQUE: Helical axial images of the abdomen and pelvis were obtained and displayed. Automated dose lowering techniques and/or adjustment according to patient size were utilized for this exam. This exam was performed with intravenous contrast. CT DOSE: 1079.98 mGy.cm COMPARISON: Comparison is made to PET/CT 03/22/2023 FINDINGS: Lower chest: No acute abnormality. Liver: Unremarkable. No focal lesions are seen. Gallbladder and biliary tree: No calcified gallstones. Normal caliber wall. No intra- or extrahepatic biliary ductal dilation. Pancreas: Fatty replacement of the pancreas is seen. Spleen: Unremarkable. Adrenals: Unremarkable. Kidneys and ureters: There is a 2 mm stone in the distal left ureter with mild hydroureter but no significant hydronephrosis. Additional nonobstructive stone is seen on the right. Bladder: Limited evaluation due to underdistention. Reproductive organs: Patient is status post hysterectomy. Bowel: The appendix is normal. Numerous diverticula are seen. There is fat stranding about a portion of the sigmoid colon. There is increased enhancement and wall thickening and a portion of the ileum. There is a small hiatal hernia. Lymph nodes Retroperitoneal: Unremarkable. Pelvic: Unremarkable. Mesenteric: Unremarkable. Peritoneum: Trace pneumoperitoneum is seen. Fat stranding is seen in the pelvis. Vessels: Atherosclerotic calcifications are seen. Abdominal wall: Unremarkable. Bones: Left lucent lesion is seen in the iliac crest. Degenerative changes are seen in the spine. IMPRESSION: There is pneumoperitoneum and fat stranding in the pelvis. This appears to surround the region of thickened ileum. Findings may represent infectious /inflammatory ileitis, malignancy, or diverticulitis. The pneumoperitoneum may be secondary to prostatectomy 8 weeks ago, bowel perforation is less likely but cannot be excluded. ACT 112: Negative or not required by law. Electronically signed by: Royal Brown M.D. 07/07/2023 2:12 PM Diagnostic Findings EKG as per my interpretation :Rate 110, sinus tachycardia, LAD, LAFB, no ischemia
[2023-07-07] MEDS ORDERED: GLUCAGON FOR INJ 1 MG VIAL SQ PRN (23:08)
[2023-07-07] MEDS ORDERED: DEXTROSE 50% 50 ML SYRINGE IV PRN (23:08)
[2023-07-07] MEDS ORDERED: GLUCOSE 10 TAB/TUBE PO PRN (23:08)
[2023-07-07] MEDS ORDERED: CARBOHYDRATES FOR HYPOGLYCEMIA PO PRN (23:08)
[2023-07-07] MEDS ORDERED: GLUCOSE 40% GEL 15 GM TUBE PO PRN (23:08)
[2023-07-07] MEDS ORDERED: Nursing to Pharmacy Communication SCH (23:15)
[2023-07-08] MEDS: INSULIN ASPART PER UNIT CHARGE SC SCH (00:04)
[2023-07-08] MEDS: VANCOMYCIN HCL 1,250 MG in SODIUM CHLORIDE 0.9% 250 ML IV SCH (00:06)
[2023-07-08] MEDS ORDERED: methylPREDNISolone 4 MG in SYRINGE 0 ML IV SCH (01:30)
[2023-07-08] MEDS: methylPREDNISolone 4 MG in SYRINGE 0 ML IV SCH (01:51)
[2023-07-08] MEDS: ACETAMINOPHEN 1,000 MG/100 ML VIAL IV PRN (03:50)
[2023-07-08 06:35] LABS: Hematocrit (blood only) 34.8 % (42.0-52.0); Hemoglobin 11.7 g/dl (14.0-18.0); Mean Corpuscular Hemoglobin 31.1 pg (25.0-34.0); Mean Corpuscular Hgb Conc 33.6 g/dL (32.0-36.0); Mean Corpuscular Volume 92.6 fL (80.0-100.0); Mean Platelet Volume 9.9 fL (9.4-12.4); Platelet Count 176 K/uL (130-400); RDW Coefficient of Variation 13.2 % (11.5-14.5); RDW Standard Deviation 44.5 fL (36.4-46.3); Red Blood Count 3.76 M/uL (4.70-6.10); White Blood Count 16.91 K/ul (4.8-10.8)
[2023-07-08 06:46] LABS: BUN Creatinine Ratio 21.4 (10-20); Calcium 8.6 mg/dl (8.6-10.3); Creatinine Clr Calc Pharmacy 104.6 ml/min; Est GFR (African American) 110.8 ml/min; Est GFR (Non-African American) 95.6 ml/min; Potassium 4.1 mmol/L (3.5-5.1)
[2023-07-08 06:55] LABS: Basophils # (auto) 0.02 K/uL (0.00-0.20); Basophils % (auto) 0.1 %; Immature Granulocytes # (auto) 0.28 K/uL (0.01-0.20); Immature Granulocytes % (auto) 1.7 %; Lymphocytes # (auto) 0.78 K/uL (1.20-3.40); Lymphocytes % (auto) 4.6 %; Monocytes # (auto) 0.47 K/uL (0.11-0.59); Monocytes % (auto) 2.8 %; Neutrophils # (auto) 15.36 K/uL (1.40-6.50); Neutrophils % (auto) 90.8 %
[2023-07-08] MEDS: LANTUS PER UNIT CHARGE SQ SCH (08:18)
[2023-07-08] MEDS ORDERED: methylPREDNISolone 1000 MG/16 ML IV SCH (09:00)
[2023-07-08] MEDS ORDERED: methylPREDNISolone 40 MG in SYRINGE 0 ML IV SCH (09:00)
--- NOTE | 2023-07-08 10:57 | Surgery Progress Note ---
Date of Service July 08, 2023 Assessment & Plan (1) Perforated diverticulum of large intestine: Plan: POD#1 colectomy/ ostomy. Doing well. Will start incentive spriometry, ambulate On IV zosyn - continue for 10 -14 day course of antibiotics total. Wound packed with iodoform in between chito - change outer dressing daily. Remove iodoform day 5 if looks OK. CHRISTY drain in pelvis - serosanguinous Await return of bowel function (air in bag, bowel tones). Keep ng for 24 more hours and then can remove if output remains low and belly exam is improved. May have an ileus given pus in lower abdomen. Able to urinate now without difficulty. Leukocytosis improving - monitor. Hgb 11.7 (down from 14.5 but was likely hemoconcentrated as prior Hgb was 12.7). Monitor. If stable, can increase DVT prophylaxis to lovenox (on BID heparin now) as higher risk for blood clot given age, cancer history. medicine following. Admission and Anticipated Discharge Date Admission Date: July 07, 2023 Subjective POD#1 sigmoid colectomy/ ostomy for perforated diverticulitis. Doing well. Pain controlled. No nausea/ vomiting. Physical Exam Constitutional: WD/WN, vitals as above Respiratory: normal respiratory effort, lungs clear to auscultation Cardiovascular: RRR, no murmur, no edema Gastrointestinal (Abdomen): Inspection/Auscultation: abdomen normal to inspection, + abdomen distended (mild), + abdominal surgical incision (clean), + abdominal surgical drain present (serosanguinous) and + hypoactive bowel sounds Percussion/Palpation: abdomen soft Neurologic: awake; no focal motor deficits Results & Data Vital Signs (Past 12 Hours) Vital Signs Temp Pulse Resp BP BP Pulse Ox O2 Del Method 07/08/23 07:11 37.1 C 85 15 113/68 95 Nasal Cannula 07/08/23 07:10 Nasal Cannula 07/08/23 04:12 36.7 C 94 H 16 122/70 94 Nasal Cannula 07/07/23 23:27 36.5 C 94 H 16 101/66 96 Nasal Cannula O2 Flow Rate 07/08/23 07:11 1 07/08/23 07:10 1.5 07/08/23 04:12 1.5 07/07/23 23:27 1.5 Laboratory Results Abnormal lab results 07/07/23 07/07/23 07/07/23 Range/Units 12:12 12:45 23:54 WBC 20.45 H (4.8-10.8) K/ul RBC (4.70-6.10) M/uL Hgb (14.0-18.0) g/dl Hct (42.0-52.0) % Neut # (Auto) 18.38 H (1.40-6.50) K/uL Lymph # (Auto) (1.20-3.40) K/uL Immature Gran # (Auto) (0.01-0.20) K/uL BUN/Creatinine Ratio 25.6 H (10-20) Glucose 115 H (70-99(Fasting)) mg/dl POC Glucose 177 H (70-99) mg/dl Hemoglobin A1c 6.5 H (4.5-5.6) % Alkaline Phosphatase 31 L (34-104) U/L Lipase 4 L (11-82) U/L Urine Blood 2+ H (Negative) Urine RBC (Auto) 10-30 H (0-4) /hpf 07/08/23 07/08/23 07/08/23 Range/Units 05:53 05:57 07:35 WBC 16.91 H (4.8-10.8) K/ul RBC 3.76 L (4.70-6.10) M/uL Hgb 11.7 L D (14.0-18.0) g/dl Hct 34.8 L (42.0-52.0) % Neut # (Auto) 15.36 H (1.40-6.50) K/uL Lymph # (Auto) 0.78 L (1.20-3.40) K/uL Immature Gran # (Auto) 0.28 H (0.01-0.20) K/uL BUN/Creatinine Ratio 21.4 H (10-20) Glucose 159 H (70-99(Fasting)) mg/dl POC Glucose 180 H 146 H (70-99) mg/dl Hemoglobin A1c (4.5-5.6) % Alkaline Phosphatase (34-104) U/L Lipase (11-82) U/L Urine Blood (Negative) Urine RBC (Auto) (0-4) /hpf
[2023-07-08] MEDS: PANTOprazole 40 MG in SYRINGE 0 ML IV SCH (11:02)
--- NOTE | 2023-07-08 15:15 | Hospitalist Progress Note ---
Date of Service July 08, 2023 Assessment & Plan (1) Pneumoperitoneum: Plan: Sepsis Perforated sigmoid diverticulitis Pneumoperitoneum Immunocompromised patient -S/P Exploratory Laparotomy, sigmoid colectomy, Creation of Colostomy by on 07/07/23 -Blood cultures pending -Intra-abdominal fluid cultures growing gram-negative Appreciate surgery input Continue IV fluids, Zosyn Continue ostomy care Bowel rest for now Pain control as needed Polymyalgia Rheumatica Continue IV Solu-Medrol while n.p.o. Resume p.o. prednisone as able DM II HbA1c 6.5 Continue insulin while hospitalized Monitor BGs Other chronic conditions: Hypertension Hyperlipidemia Prostate cancer S/P surgery Melanoma S/P surgery Gout Rosacea Resume home medications as able DVT Px: Heparin SQ CODE STATUS Full code Admission and Anticipated Discharge Date Admission Date: July 07, 2023 Subjective Patient is seen and examined at bedside Abdominal pain is controlled with medications Denies any nausea, vomiting, chest pain, dyspnea Patient's family at bedside No other complaints Review of Systems Review of Systems: All systems reviewed & are unremarkable except as noted in Subjective Physical Exam Physical Exam: Physical Exam: Vitals signs as noted above General Appearance:Moderately built and nourished, no apparent distress, +NG tube Head: normocephalic, Atraumatic Eyes: normal inspection, EOMI Neck: supple, Trachea midline Respiratory/Chest: Normal breath sounds, CTA, No accessory muscle use Cardiovascular: S1, S2, No murmur Abdomen/GI:Soft, mild tender, +Colostomy, Bowel sounds present Extremities/Musculoskeletal:normal inspection, no edema Neurologic/Psych:AAOX3, grossly no focal neurological deficits Skin: normal color, warm Results & Data Results & Data Vital Signs (Past 12 Hours) Vital Signs Temp Pulse Resp BP BP Pulse Ox O2 Del Method 07/08/23 13:57 36.7 C 85 15 123/70 97 Nasal Cannula 07/08/23 07:11 37.1 C 85 15 113/68 95 Nasal Cannula 07/08/23 07:10 Nasal Cannula 07/08/23 04:12 36.7 C 94 H 16 122/70 94 Nasal Cannula O2 Flow Rate 07/08/23 13:57 1 07/08/23 07:11 1 07/08/23 07:10 1.5 07/08/23 04:12 1.5 Laboratory Results Short CBC 07/08/23 Range/Units 05:53 WBC 16.91 H (4.8-10.8) K/ul Hgb 11.7 L D (14.0-18.0) g/dl Hct 34.8 L (42.0-52.0) % Plt Count 176 (130-400) K/uL BMP 07/08/23 05:53 Sodium 137 Potassium 4.1 Chloride 104 Carbon Dioxide 27 BUN 15 Creatinine 0.70 Glucose 159 H Calcium 8.6
[2023-07-08] MEDS: MoRPHine SULFATE 4 MG/ML 1 ML CARP\\VIAL IV PRN (16:14)
--- NOTE | 2023-07-08 22:51 | Electrocardiogram Report ---
Test Reason : Blood Pressure : / mmHG Vent. Rate : 107 BPM Atrial Rate : 107 BPM P-R Int : 160 ms QRS Dur : 084 ms QT Int : 334 ms P-R-T Axes : 055 -14 063 degrees QTc Int : 445 ms Sinus tachycardia Otherwise normal ECG When compared with ECG of 07-JUL-2023 12:15, No significant change was found Confirmed by Oral Abdalla ([id number]) on 07/08/2023 10:51:06 PM Referred By: REFERRED SELF Confirmed By:Oral Abdalla
[2023-07-09 06:53] LABS: Basophils # (auto) 0.01 K/uL (0.00-0.20); Basophils % (auto) 0.1 %; Eosinophils # (auto) 0.14 K/uL (0.00-0.50); Eosinophils % (auto) 1.1 %; Hematocrit (blood only) 35.7 % (42.0-52.0); Hemoglobin 11.6 g/dl (14.0-18.0); Immature Granulocytes # (auto) 0.07 K/uL (0.01-0.20); Immature Granulocytes % (auto) 0.6 %; Lymphocytes % (auto) 6.5 %; Mean Corpuscular Hemoglobin 30.7 pg (25.0-34.0); Mean Corpuscular Hgb Conc 32.5 g/dL (32.0-36.0); Mean Corpuscular Volume 94.4 fL (80.0-100.0); Mean Platelet Volume 9.7 fL (9.4-12.4); Monocytes # (auto) 0.46 K/uL (0.11-0.59); Monocytes % (auto) 3.7 %; Neutrophils # (auto) 10.79 K/uL (1.40-6.50); Platelet Count 159 K/uL (130-400); RDW Coefficient of Variation 12.8 % (11.5-14.5); RDW Standard Deviation 43.8 fL (36.4-46.3); Red Blood Count 3.78 M/uL (4.70-6.10); White Blood Count 12.27 K/ul (4.8-10.8)
[2023-07-09 07:10] LABS: BUN Creatinine Ratio 11.9 (10-20); Calcium 8.7 mg/dl (8.6-10.3); Creatinine Clr Calc Pharmacy 109.3 ml/min; Est GFR (African American) 112.8 ml/min; Est GFR (Non-African American) 97.4 ml/min; Magnesium 1.6 mg/dl (1.7-2.4); Potassium 4.3 mmol/L (3.5-5.1)
[2023-07-09] MEDS ORDERED: CHLORASEPTIC (PHENOL) 1.4% SOLN 180 ML BTL MT PRN (08:35)
[2023-07-09] MEDS: MAGNESIUM SULFATE / D5W 1 GM/100 ML BAG IV ONE (09:37)
[2023-07-09] MEDS: BENZOCAINE/MENTHOL 18 LOZ/1 BOX MT PRN (09:37)
[2023-07-09] MEDS ORDERED: HYDROmorphone INJ 1 MG/ML SYRINGE IV PRN (10:49)
[2023-07-09] MEDS ORDERED: HYDROmorphone INJ 0.5 MG/0.5 ML SYR IV PRN (10:49)
[2023-07-09] MEDS ORDERED: VANCOMYCIN LEVEL ONE (11:00)
--- NOTE | 2023-07-09 11:38 | Surgery Progress Note ---
Date of Service July 09, 2023 Assessment & Plan (1) Perforated diverticulum of large intestine: Plan: POD#2 colectomy/ ostomy. avss postop pain moderate minimal NGT output TIERNEY drain in pelvis - serosanguineous Leukocytosis improving - monitor. Hgb 11.6 (11.7) Plan: Continue pain management, will switch to scheduled IV Tylenol, breakthrough Dilaudid and Toradol prn discontinue NGT okay for ice chips dressing change daily, packing removed tierney drain to bulb suction OOB to chair today dvt prophylaxis incentive spirometry continue steroids , med management repeat am labs Dr. Valencia has seen and examined patient, agrees with above Admission and Anticipated Discharge Date Admission Date: July 07, 2023 Subjective feeling better than yesterday, pain still moderate, Tylenol helping some Morphine made pain worse able to stand at bedside with assistance of no n,v wants NGT removed Physical Exam Constitutional: WD/WN, vitals as above cooperative and comfortable; no acute distress and not ill appearing Respiratory: normal respiratory effort; no respiratory distress, no labored breathing and no retractions Gastrointestinal (Abdomen): Inspection/Auscultation: abdomen normal to inspection, + abdominal surgical incision (c/d/i with chito, packing present ) and + abdominal surgical drain present (serosanguineous); abdomen not distended Percussion/Palpation: + abdomen tender and abdomen soft; no guarding, abdomen not rigid and abdomen not firm LLQ ostomy with bloody/serous output, no stool, no flatus Skin: no rashes, warm and dry Psychiatric: Orientation: alert and oriented x 3 Results & Data Vital Signs (Past 12 Hours) Vital Signs Temp Pulse Resp BP Pulse Ox O2 Del Method 07/09/23 07:42 36.5 C 85 16 130/67 93 Room Air Laboratory Results 07/09/23 07/09/23 07/09/23 Range/Units 06:22 05:50 00:02 WBC 12.27 H (4.8-10.8) K/ul RBC 3.78 L (4.70-6.10) M/uL Hgb 11.6 L (14.0-18.0) g/dl Hct 35.7 L (42.0-52.0) % MCV 94.4 (80.0-100.0) fL MCH 30.7 (25.0-34.0) pg MCHC 32.5 (32.0-36.0) g/dL RDW Std Deviation 43.8 (36.4-46.3) fL RDW Coeff of Magdi 12.8 (11.5-14.5) % Plt Count 159 (130-400) K/uL MPV 9.7 (9.4-12.4) fL Immature Gran % (Auto) 0.6 % Neut % (Auto) 88.0 % Lymph % (Auto) 6.5 % [place] % (Auto) 3.7 % Eos % (Auto) 1.1 % Baso % (Auto) 0.1 % Neut # (Auto) 10.79 H (1.40-6.50) K/uL Lymph # (Auto) 0.80 L (1.20-3.40) K/uL [place] # (Auto) 0.46 (0.11-0.59) K/uL Eos # (Auto) 0.14 (0.00-0.50) K/uL Baso # (Auto) 0.01 (0.00-0.20) K/uL Immature Gran # (Auto) 0.07 (0.01-0.20) K/uL Sodium 138 (136-145) mmol/L Potassium 4.3 (3.5-5.1) mmol/L Chloride 104 (98-107) mmol/L Carbon Dioxide 29 (21-32) mmol/L Anion Gap 5 (3-11) BUN 8 (6-23) mg/dl Creatinine 0.67 (0.6-1.4) mg/dl Est Cr Clr Drug Dosing 109.3 ml/min Est GFR ( Amer) 112.8 ml/min Est GFR (Non-Af Amer) 97.4 ml/min BUN/Creatinine Ratio 11.9 (10-20) Glucose 113 H (70-99(Fasting)) mg/dl POC Glucose 115 H 118 H (70-99) mg/dl Calcium 8.7 (8.6-10.3) mg/dl Magnesium 1.6 L (1.7-2.4) mg/dl 07/08/23 07/08/23 Range/Units 18:08 11:55 WBC (4.8-10.8) K/ul RBC (4.70-6.10) M/uL Hgb (14.0-18.0) g/dl Hct (42.0-52.0) % MCV (80.0-100.0) fL MCH (25.0-34.0) pg MCHC (32.0-36.0) g/dL RDW Std Deviation (36.4-46.3) fL RDW Coeff of Magdi (11.5-14.5) % Plt Count (130-400) K/uL MPV (9.4-12.4) fL Immature Gran % (Auto) % Neut % (Auto) % Lymph % (Auto) % [place] % (Auto) % Eos % (Auto) % Baso % (Auto) % Neut # (Auto) (1.40-6.50) K/uL Lymph # (Auto) (1.20-3.40) K/uL [place] # (Auto) (0.11-0.59) K/uL Eos # (Auto) (0.00-0.50) K/uL Baso # (Auto) (0.00-0.20) K/uL Immature Gran # (Auto) (0.01-0.20) K/uL Sodium (136-145) mmol/L Potassium (3.5-5.1) mmol/L Chloride (98-107) mmol/L Carbon Dioxide (21-32) mmol/L Anion Gap (3-11) BUN (6-23) mg/dl Creatinine (0.6-1.4) mg/dl Est Cr Clr Drug Dosing ml/min Est GFR ( Amer) ml/min Est GFR (Non-Af Amer) ml/min BUN/Creatinine Ratio (10-20) Glucose (70-99(Fasting)) mg/dl POC Glucose 113 H 122 H (70-99) mg/dl Calcium (8.6-10.3) mg/dl Magnesium (1.7-2.4) mg/dl
[2023-07-09] MEDS: ACETAMINOPHEN 1,000 MG/100 ML VIAL IV SCH (11:45)
[2023-07-09] MEDS: MEROPENEM 500 MG in SYRINGE 0 ML IV SCH (12:05)
--- NOTE | 2023-07-09 17:01 | Hospitalist Progress Note ---
Date of Service July 09, 2023 Assessment & Plan (1) Pneumoperitoneum: Plan: Sepsis Perforated sigmoid diverticulitis Pneumoperitoneum Immunocompromised patient -S/P Exploratory Laparotomy, sigmoid colectomy, Creation of Colostomy by on 07/07/23 -Blood cultures negative to date -Intra-abdominal fluid cultures grew Pseudomonas, Citrobacter Appreciate surgery input Continue IV fluids IV Zosyn changed to meropenem given high risk of inducible amp c production Continue ostomy care Bowel rest for now Pain control as needed Surgery following Polymyalgia Rheumatica Continue IV Solu-Medrol while n.p.o. Resume p.o. prednisone as able DM II HbA1c 6.5 Continue insulin while hospitalized Monitor BGs Other chronic conditions: Hypertension Hyperlipidemia Prostate cancer S/P surgery Melanoma S/P surgery Gout Rosacea Resume home medications as able DVT Px: Heparin SQ CODE STATUS Full code Admission and Anticipated Discharge Date Admission Date: July 07, 2023 Subjective Patient is seen and examined at bedside NG tube discontinued Abdominal pain with movement Had dressing changed today Denies any nausea, vomiting, chest pain, dyspnea Review of Systems Review of Systems: All systems reviewed & are unremarkable except as noted in Subjective Physical Exam Physical Exam: Physical Exam: Vitals signs as noted above General Appearance:Moderately built and nourished, no apparent distress, +NG tube Head: normocephalic, Atraumatic Eyes: normal inspection, EOMI Neck: supple, Trachea midline Respiratory/Chest: Normal breath sounds, CTA, No accessory muscle use Cardiovascular: S1, S2, No murmur Abdomen/GI:Soft, mild tender, +Colostomy, Bowel sounds present Extremities/Musculoskeletal:normal inspection, no edema Neurologic/Psych:AAOX3, grossly no focal neurological deficits Skin: normal color, warm Results & Data Results & Data Vital Signs (Past 12 Hours) Vital Signs Temp Pulse Resp BP Pulse Ox O2 Del Method 07/09/23 15:57 37.1 C 82 16 130/71 94 Room Air 07/09/23 07:42 36.5 C 85 16 130/67 93 Room Air Laboratory Results Short CBC 07/09/23 Range/Units 06:22 WBC 12.27 H (4.8-10.8) K/ul Hgb 11.6 L (14.0-18.0) g/dl Hct 35.7 L (42.0-52.0) % Plt Count 159 (130-400) K/uL BMP 07/09/23 06:22 Sodium 138 Potassium 4.3 Chloride 104 Carbon Dioxide 29 BUN 8 Creatinine 0.67 Glucose 113 H Calcium 8.7
[2023-07-09] MEDS: KETOROLAC 30 MG/ML VIAL IV PRN (18:28)
[2023-07-10 06:58] LABS: Basophils # (auto) 0.02 K/uL (0.00-0.20); Basophils % (auto) 0.2 %; Eosinophils # (auto) 0.21 K/uL (0.00-0.50); Eosinophils % (auto) 2.4 %; Hematocrit (blood only) 32.8 % (42.0-52.0); Hemoglobin 11.3 g/dl (14.0-18.0); Immature Granulocytes # (auto) 0.03 K/uL (0.01-0.20); Immature Granulocytes % (auto) 0.3 %; Lymphocytes % (auto) 11.3 %; Mean Corpuscular Hemoglobin 31.5 pg (25.0-34.0); Mean Corpuscular Hgb Conc 34.5 g/dL (32.0-36.0); Mean Corpuscular Volume 91.4 fL (80.0-100.0); Mean Platelet Volume 9.7 fL (9.4-12.4); Monocytes # (auto) 0.41 K/uL (0.11-0.59); Monocytes % (auto) 4.6 %; Neutrophils # (auto) 7.18 K/uL (1.40-6.50); Neutrophils % (auto) 81.2 %; Platelet Count 161 K/uL (130-400); RDW Coefficient of Variation 12.6 % (11.5-14.5); RDW Standard Deviation 41.7 fL (36.4-46.3); Red Blood Count 3.59 M/uL (4.70-6.10); White Blood Count 8.85 K/ul (4.8-10.8)
[2023-07-10 07:13] LABS: BUN Creatinine Ratio 18.5 (10-20); Calcium 8.8 mg/dl (8.6-10.3); Creatinine Clr Calc Pharmacy 112.6 ml/min; Est GFR (African American) 114.2 ml/min; Est GFR (Non-African American) 98.6 ml/min; Magnesium 1.6 mg/dl (1.7-2.4); Potassium 3.9 mmol/L (3.5-5.1)
--- NOTE | 2023-07-10 09:29 | Surgery Progress Note ---
Date of Service July 10, 2023 Assessment & Plan (1) Perforated diverticulum of large intestine: Plan: POD#3 colectomy/ ostomy. avss postop pain better controlled today TIERNEY drain in pelvis - serosanguineous Leukocytosis resolved Hgb stable at 11.3 (11.6) Plan: Continue pain management, scheduled IV Tylenol, breakthrough Dilaudid and Toradol prn okay for ice chips dressing change daily tierney drain to bulb suction OOB to chair and ambulate today possibly clear liquids later today may need stool softener/dose of Miralax for hard stool in colon intraoperatively dvt prophylaxis incentive spirometry continue steroids , med management repeat am labs Admission and Anticipated Discharge Date Admission Date: July 07, 2023 Subjective feeling better today able to get out of bed this morning without assistance, walked hallway with assistance pain controlled with IV Tylenol and dose of Toradol last night, not needing narcotics no n,v feels like things are gurgling but no stool in ostomy yet Physical Exam Constitutional: WD/WN, vitals as above cooperative and comfortable; no acute distress and not ill appearing Respiratory: normal respiratory effort; no respiratory distress, no labored breathing and no retractions Gastrointestinal (Abdomen): Inspection/Auscultation: abdomen normal to inspection, + abdominal surgical incision (covered with clean/dry/intact dressing), + abdominal surgical drain present (minimal serosanguineous output) and + hypoactive bowel sounds (some present in LUQ); abdomen not distended and + abnormal bowel sounds Percussion/Palpation: + abdomen tender (at midline laparotomy incision) and abdomen soft; no guarding and abdomen not rigid ostomy: sweat present in bag no significant air or stool yet. Ostomy pink with no necrosis Skin: no rashes, warm and dry Psychiatric: A+Ox3, euthymic affect Results & Data Vital Signs (Past 12 Hours) Vital Signs Temp Pulse Resp BP Pulse Ox O2 Del Method 07/10/23 08:24 36.7 C 65 16 161/67 H 95 Room Air Laboratory Results 07/10/23 07/10/23 07/09/23 Range/Units 06:23 05:33 23:45 WBC 8.85 (4.8-10.8) K/ul RBC 3.59 L (4.70-6.10) M/uL Hgb 11.3 L (14.0-18.0) g/dl Hct 32.8 L (42.0-52.0) % MCV 91.4 (80.0-100.0) fL MCH 31.5 (25.0-34.0) pg MCHC 34.5 (32.0-36.0) g/dL RDW Std Deviation 41.7 (36.4-46.3) fL RDW Coeff of Magdi 12.6 (11.5-14.5) % Plt Count 161 (130-400) K/uL MPV 9.7 (9.4-12.4) fL Immature Gran % (Auto) 0.3 % Neut % (Auto) 81.2 % Lymph % (Auto) 11.3 % [place] % (Auto) 4.6 % Eos % (Auto) 2.4 % Baso % (Auto) 0.2 % Neut # (Auto) 7.18 H (1.40-6.50) K/uL Lymph # (Auto) 1.00 L (1.20-3.40) K/uL [place] # (Auto) 0.41 (0.11-0.59) K/uL Eos # (Auto) 0.21 (0.00-0.50) K/uL Baso # (Auto) 0.02 (0.00-0.20) K/uL Immature Gran # (Auto) 0.03 (0.01-0.20) K/uL Sodium 141 (136-145) mmol/L Potassium 3.9 (3.5-5.1) mmol/L Chloride 105 (98-107) mmol/L Carbon Dioxide 26 (21-32) mmol/L Anion Gap 10 (3-11) BUN 12 (6-23) mg/dl Creatinine 0.65 (0.6-1.4) mg/dl Est Cr Clr Drug Dosing 112.6 ml/min Est GFR ( Amer) 114.2 ml/min Est GFR (Non-Af Amer) 98.6 ml/min BUN/Creatinine Ratio 18.5 (10-20) Glucose 80 (70-99(Fasting)) mg/dl POC Glucose 85 82 (70-99) mg/dl Calcium 8.8 (8.6-10.3) mg/dl Magnesium 1.6 L (1.7-2.4) mg/dl 07/09/23 07/09/23 Range/Units 16:55 12:04 WBC (4.8-10.8) K/ul RBC (4.70-6.10) M/uL Hgb (14.0-18.0) g/dl Hct (42.0-52.0) % MCV (80.0-100.0) fL MCH (25.0-34.0) pg MCHC (32.0-36.0) g/dL RDW Std Deviation (36.4-46.3) fL RDW Coeff of Magdi (11.5-14.5) % Plt Count (130-400) K/uL MPV (9.4-12.4) fL Immature Gran % (Auto) % Neut % (Auto) % Lymph % (Auto) % [place] % (Auto) % Eos % (Auto) % Baso % (Auto) % Neut # (Auto) (1.40-6.50) K/uL Lymph # (Auto) (1.20-3.40) K/uL [place] # (Auto) (0.11-0.59) K/uL Eos # (Auto) (0.00-0.50) K/uL Baso # (Auto) (0.00-0.20) K/uL Immature Gran # (Auto) (0.01-0.20) K/uL Sodium (136-145) mmol/L Potassium (3.5-5.1) mmol/L Chloride (98-107) mmol/L Carbon Dioxide (21-32) mmol/L Anion Gap (3-11) BUN (6-23) mg/dl Creatinine (0.6-1.4) mg/dl Est Cr Clr Drug Dosing ml/min Est GFR ( Amer) ml/min Est GFR (Non-Af Amer) ml/min BUN/Creatinine Ratio (10-20) Glucose (70-99(Fasting)) mg/dl POC Glucose 111 H 120 H (70-99) mg/dl Calcium (8.6-10.3) mg/dl Magnesium (1.7-2.4) mg/dl
[2023-07-10] MEDS: MAGNESIUM SULFATE / D5W 1 GM/100 ML BAG IV ONE (10:27)
[2023-07-10] MEDS: D5W AND 1/2NSS + 20MEQ KCL 20 MEQ/1,000 ML BAG IV SCH (11:29)
[2023-07-10] MEDS: POLYETHYLENE (MIRALAX) 17 GM PACK PO STA (16:40)
--- NOTE | 2023-07-10 16:43 | Hospitalist Progress Note ---
Date of Service July 10, 2023 Assessment & Plan (1) Pneumoperitoneum: Plan: Sepsis Perforated sigmoid diverticulitis Pneumoperitoneum Immunocompromised patient -S/P Exploratory Laparotomy, sigmoid colectomy, Creation of Colostomy by on 07/07/23 -Blood cultures negative to date -Intra-abdominal fluid cultures grew Pseudomonas, Citrobacter Appreciate surgery input Continue IV fluids--adjust as needed IV Zosyn changed to meropenem given high risk of inducible amp c production Continue ostomy care Pain control as needed Started on clear liquid diet today Polymyalgia Rheumatica Continue IV Solu-Medrol>> transition to p.o. steroids as able No acute issues DM II HbA1c 6.5 Continue insulin while hospitalized Monitor BGs Other chronic conditions: Hypertension Hyperlipidemia Prostate cancer S/P surgery Melanoma S/P surgery Gout Rosacea Resume home medications as able DVT Px: Heparin SQ CODE STATUS Full code Admission and Anticipated Discharge Date Admission Date: July 07, 2023 Subjective Patient is seen and examined at bedside States feeling better today Abdominal pain improved No bowel movement today Continues to be on bowel rest Had dressing changed today Denies any nausea, vomiting, chest pain, dyspnea Review of Systems Review of Systems: All systems reviewed & are unremarkable except as noted in Subjective Physical Exam Physical Exam: Physical Exam: Vitals signs as noted above General Appearance:Moderately built and nourished, no apparent distress, +NG tube Head: normocephalic, Atraumatic Eyes: normal inspection, EOMI Neck: supple, Trachea midline Respiratory/Chest: Normal breath sounds, CTA, No accessory muscle use Cardiovascular: S1, S2, No murmur Abdomen/GI:Soft, mild tender, +Colostomy, Bowel sounds present Extremities/Musculoskeletal:normal inspection, no edema Neurologic/Psych:AAOX3, grossly no focal neurological deficits Skin: normal color, warm Results & Data Results & Data Vital Signs (Past 12 Hours) Vital Signs Temp Pulse Resp BP Pulse Ox O2 Del Method 07/10/23 15:56 36.7 C 83 18 167/79 H 95 Room Air 07/10/23 08:24 36.7 C 65 16 161/67 H 95 Room Air Laboratory Results Short CBC 07/10/23 Range/Units 06:23 WBC 8.85 (4.8-10.8) K/ul Hgb 11.3 L (14.0-18.0) g/dl Hct 32.8 L (42.0-52.0) % Plt Count 161 (130-400) K/uL BMP 07/10/23 06:23 Sodium 141 Potassium 3.9 Chloride 105 Carbon Dioxide 26 BUN 12 Creatinine 0.65 Glucose 80 Calcium 8.8
[2023-07-10] MEDS ORDERED: Nursing to Pharmacy Communication SCH (17:00)
[2023-07-10] MEDS: INSULIN ASPART PER UNIT CHARGE SC SCH (18:02)
[2023-07-11 07:42] LABS: Basophils # (auto) 0.01 K/uL (0.00-0.20); Basophils % (auto) 0.2 %; Eosinophils # (auto) 0.21 K/uL (0.00-0.50); Eosinophils % (auto) 3.4 %; Hematocrit (blood only) 33.8 % (42.0-52.0); Hemoglobin 11.8 g/dl (14.0-18.0); Immature Granulocytes # (auto) 0.03 K/uL (0.01-0.20); Immature Granulocytes % (auto) 0.5 %; Lymphocytes # (auto) 1.19 K/uL (1.20-3.40); Lymphocytes % (auto) 19.1 %; Mean Corpuscular Hemoglobin 31.1 pg (25.0-34.0); Mean Corpuscular Hgb Conc 34.9 g/dL (32.0-36.0); Mean Corpuscular Volume 88.9 fL (80.0-100.0); Mean Platelet Volume 9.4 fL (9.4-12.4); Monocytes # (auto) 0.39 K/uL (0.11-0.59); Monocytes % (auto) 6.3 %; Neutrophils % (auto) 70.5 %; Platelet Count 186 K/uL (130-400); RDW Coefficient of Variation 12.6 % (11.5-14.5); RDW Standard Deviation 41.1 fL (36.4-46.3); White Blood Count 6.23 K/ul (4.8-10.8)
[2023-07-11 08:10] LABS: BUN Creatinine Ratio 13.2 (10-20); Calcium 8.8 mg/dl (8.6-10.3); Creatinine Clr Calc Pharmacy 138.1 ml/min; Est GFR (African American) 124.2 ml/min; Est GFR (Non-African American) 107.2 ml/min; Magnesium 1.7 mg/dl (1.7-2.4); Potassium 3.7 mmol/L (3.5-5.1)
--- NOTE | 2023-07-11 09:54 | Surgery Progress Note ---
Date of Service July 11, 2023 Assessment & Plan (1) Perforated diverticulum of large intestine: Plan: POD#4 colectomy/ ostomy. avss postop pain controlled TIERNEY drain in pelvis - minimal serosanguineous Leukocytosis resolved Plan: Continue pain management, scheduled IV Tylenol, breakthrough Dilaudid and Toradol prn clear liquids dressing change daily tierney drain to bulb suction OOB to chair and ambulate today another dose of Miralax today dvt prophylaxis incentive spirometry continue steroids , med management possible full liquids later today Dr. Valencia has seen and examined patient, agrees with above. Admission and Anticipated Discharge Date Admission Date: July 07, 2023 Subjective feeling good tolerated clear liquids no n,v gas out of ostomy no stool yet ambulating and urinating without difficulty no chest pain or sob Physical Exam Constitutional: WD/WN, vitals as above cooperative and comfortable; no acute distress and not ill appearing Respiratory: normal respiratory effort; no respiratory distress Gastrointestinal (Abdomen): Inspection/Auscultation: abdomen normal to inspection, normal bowel sounds, + abdominal surgical incision (c/d/i with chito) and + abdominal surgical drain present (minimal serosanguineous); abdomen not distended Percussion/Palpation: + abdomen tender (at midline incision appropriate postop) and abdomen soft; no guarding, abdomen not rigid and abdomen not firm LLQ ostomy with air in bag no stool yet, ostomy pink with no necrosis Skin: no rashes, warm and dry Psychiatric: Orientation: alert and oriented x 3 Results & Data Vital Signs (Past 12 Hours) Vital Signs Temp Pulse Resp BP Pulse Ox O2 Del Method 07/11/23 07:57 37 C 73 16 157/77 H 95 Room Air Laboratory Results 07/11/23 07/11/23 07/10/23 Range/Units 07:54 07:04 20:17 WBC 6.23 (4.8-10.8) K/ul RBC 3.80 L (4.70-6.10) M/uL Hgb 11.8 L (14.0-18.0) g/dl Hct 33.8 L (42.0-52.0) % MCV 88.9 (80.0-100.0) fL MCH 31.1 (25.0-34.0) pg MCHC 34.9 (32.0-36.0) g/dL RDW Std Deviation 41.1 (36.4-46.3) fL RDW Coeff of Magdi 12.6 (11.5-14.5) % Plt Count 186 (130-400) K/uL MPV 9.4 (9.4-12.4) fL Immature Gran % (Auto) 0.5 % Neut % (Auto) 70.5 % Lymph % (Auto) 19.1 % [place] % (Auto) 6.3 % Eos % (Auto) 3.4 % Baso % (Auto) 0.2 % Neut # (Auto) 4.40 (1.40-6.50) K/uL Lymph # (Auto) 1.19 L (1.20-3.40) K/uL [place] # (Auto) 0.39 (0.11-0.59) K/uL Eos # (Auto) 0.21 (0.00-0.50) K/uL Baso # (Auto) 0.01 (0.00-0.20) K/uL Immature Gran # (Auto) 0.03 (0.01-0.20) K/uL Sodium 142 (136-145) mmol/L Potassium 3.7 (3.5-5.1) mmol/L Chloride 107 (98-107) mmol/L Carbon Dioxide 26 (21-32) mmol/L Anion Gap 9 (3-11) BUN 7 (6-23) mg/dl Creatinine 0.53 L (0.6-1.4) mg/dl Est Cr Clr Drug Dosing 138.1 ml/min Est GFR ( Amer) 124.2 ml/min Est GFR (Non-Af Amer) 107.2 ml/min BUN/Creatinine Ratio 13.2 (10-20) Glucose 111 H (70-99(Fasting)) mg/dl POC Glucose 121 H 129 H (70-99) mg/dl Calcium 8.8 (8.6-10.3) mg/dl Magnesium 1.7 (1.7-2.4) mg/dl 07/10/23 07/10/23 Range/Units 17:08 12:09 WBC (4.8-10.8) K/ul RBC (4.70-6.10) M/uL Hgb (14.0-18.0) g/dl Hct (42.0-52.0) % MCV (80.0-100.0) fL MCH (25.0-34.0) pg MCHC (32.0-36.0) g/dL RDW Std Deviation (36.4-46.3) fL RDW Coeff of Magdi (11.5-14.5) % Plt Count (130-400) K/uL MPV (9.4-12.4) fL Immature Gran % (Auto) % Neut % (Auto) % Lymph % (Auto) % [place] % (Auto) % Eos % (Auto) % Baso % (Auto) % Neut # (Auto) (1.40-6.50) K/uL Lymph # (Auto) (1.20-3.40) K/uL [place] # (Auto) (0.11-0.59) K/uL Eos # (Auto) (0.00-0.50) K/uL Baso # (Auto) (0.00-0.20) K/uL Immature Gran # (Auto) (0.01-0.20) K/uL Sodium (136-145) mmol/L Potassium (3.5-5.1) mmol/L Chloride (98-107) mmol/L Carbon Dioxide (21-32) mmol/L Anion Gap (3-11) BUN (6-23) mg/dl Creatinine (0.6-1.4) mg/dl Est Cr Clr Drug Dosing ml/min Est GFR ( Amer) ml/min Est GFR (Non-Af Amer) ml/min BUN/Creatinine Ratio (10-20) Glucose (70-99(Fasting)) mg/dl POC Glucose 122 H 113 H (70-99) mg/dl Calcium (8.6-10.3) mg/dl Magnesium (1.7-2.4) mg/dl
[2023-07-11] MEDS: POLYETHYLENE (MIRALAX) 17 GM PACK PO STA (10:22)
--- NOTE | 2023-07-11 11:47 | Hospitalist Progress Note ---
Date of Service July 11, 2023 Assessment & Plan (1) Pneumoperitoneum: Plan: Mr. Hameed is a 68 year old gentleman with history of hypertension, hyperlipidemia, prostate cancer status post surgery, melanoma status post surgery, PMR currently on steroid Rx, prediabetes, gout, rosacea on doxycycline who is admitted #Sepsis, resolved #Perforated sigmoid diverticulitis c/b pneumoperitoneum #Immunocompromised patient on chronic steroids -S/P Exploratory Laparotomy, sigmoid colectomy, Creation of Colostomy by on 07/07/23 -Blood cultures negative to date -Intra-abdominal fluid cultures grew Pseudomonas, Citrobacter Appreciate surgery input Continue IV fluids--adjust as needed IV Zosyn changed to meropenem given high risk of inducible amp c production -Continue Meropenem Continue ostomy care Pain control as needed Diet per PCP #Polymyalgia Rheumatica Continue IV Solu-Medrol>> transition to p.o. steroids as able No acute issues #DM II HbA1c 6.5 Continue insulin while hospitalized Monitor BGs Other chronic conditions: Hypertension Hyperlipidemia Prostate cancer S/P surgery Melanoma S/P surgery Gout Rosacea Resume home medications as able DVT Px: Heparin SQ CODE STATUS Full code Admission and Anticipated Discharge Date Admission Date: July 07, 2023 Subjective NAEO Reports feeling sore, but denies any uncontrolled pain Reports tolerating CLD last evening and this am--feels bloated with some gas in ostomy, but no stool yet Physical Exam Constitutional: WD/WN, vitals as above Respiratory: normal respiratory effort, lungs clear to auscultation Cardiovascular: RRR, no murmur, no edema Gastrointestinal (Abdomen): CHRISTY drain with minimal sanguinous discharge, no discharge in ostomy bag Results & Data Results & Data Vital Signs (Past 12 Hours) Vital Signs Temp Pulse Resp BP Pulse Ox O2 Del Method 07/11/23 07:57 37 C 73 16 157/77 H 95 Room Air Laboratory Results Short CBC 07/11/23 Range/Units 07:04 WBC 6.23 (4.8-10.8) K/ul Hgb 11.8 L (14.0-18.0) g/dl Hct 33.8 L (42.0-52.0) % Plt Count 186 (130-400) K/uL BMP 07/11/23 07:04 Sodium 142 Potassium 3.7 Chloride 107 Carbon Dioxide 26 BUN 7 Creatinine 0.53 L Glucose 111 H Calcium 8.8 Medications Administered Home Medications Medication Instructions Recorded Confirmed Last Taken atorvastatin 20 mg tablet 10 mg PO QAM 07/25/22 07/07/23 07/07/23 doxycycline hyclate 20 mg tablet 20 mg PO BID 07/25/22 07/07/23 07/07/23 08:00 metronidazole 0.75 % topical cream 1 applic topical UD PRN rosacea 07/25/22 07/07/23 05/07/23 07:00 allopurinol 300 mg tablet 300 mg PO QAM 05/01/23 07/07/23 07/07/23 amlodipine 10 mg-valsartan 320 mg 1 tab PO QAM 05/01/23 07/07/23 07/07/23 tablet prednisone 5 mg tablet 5 mg PO DAILY 07/07/23 07/07/23 07/07/23 sildenafil 100 mg tablet 100 mg PO DAILY PRN Sexual Activity 07/07/23 07/07/23 Unknown Active Medications Generic Name Dose Route Start Last Admin Trade Name Freq PRN Reason Stop Dose Admin Benzocaine 1 kole 07/09/23 08:35 07/09/23 09:37 Benzocaine/Menthol 18 Kole/1 Box MT 08/08/23 08:34 1 kole Q1H PRN Administration Sore Throat Heparin Sodium (Porcine) 5,000 units 07/07/23 21:00 07/11/23 08:25 Heparin Sod 5,000 Unit/0.5 Ml Vial SQ 08/06/23 20:59 5,000 units Q12 NATHAN Administration Pantoprazole Sodium 40 mg/ 10 mls @ 5 mls/min 07/08/23 11:00 07/10/23 11:32 Syringe IV 08/07/23 10:59 5 mls/min DAILY@1100 NATHAN Administration Methylprednisolone 4 mg/ 0.4 mls @ 0.133 mls/min 07/08/23 01:45 07/11/23 08:25 Syringe IV 08/07/23 01:44 0.133 mls/min DAILY NATHAN Administration Acetaminophen 1,000 mg in 100 mls @ 400 mls/hr 07/09/23 11:00 07/11/23 03:38 Ofirmev IV 07/12/23 10:59 Infused Q8H NATHAN Infusion Meropenem 500 mg/ Syringe 10 mls @ 2 mls/min 07/09/23 12:00 07/11/23 06:13 IV 07/19/23 11:59 2 mls/min Q6H NATHAN Administration Protocol Insulin Aspart 0 units 07/10/23 17:15 07/11/23 08:26 Insulin Aspart Per Unit Charge SC 08/09/23 17:14 2 units ACHS NATHAN Administration Insulin Glargine 5 units 07/08/23 07:15 07/10/23 08:34 Lantus Per Unit Charge SQ 08/07/23 07:14 Not Given DAILY [facility] Ketorolac Tromethamine 15 mg 07/09/23 10:49 07/09/23 18:28 Ketorolac 30 Mg/Ml Vial IV 07/14/23 10:48 15 mg Q6H PRN Administration Moderate Pain (Scale 4, 5, 6)
[2023-07-11] MEDS ORDERED: hydrALAZINE HCL 20 MG/ML VIAL IV PRN (15:04)
[2023-07-11] MEDS: VALSARTAN 80 MG TAB PO SCH (16:10)
[2023-07-12 08:11] LABS: Hematocrit (blood only) 35.5 % (42.0-52.0); Hemoglobin 12.3 g/dl (14.0-18.0); Mean Corpuscular Hemoglobin 31.1 pg (25.0-34.0); Mean Corpuscular Hgb Conc 34.6 g/dL (32.0-36.0); Mean Corpuscular Volume 89.6 fL (80.0-100.0); Mean Platelet Volume 9.2 fL (9.4-12.4); Platelet Count 180 K/uL (130-400); RDW Coefficient of Variation 12.4 % (11.5-14.5); RDW Standard Deviation 40.4 fL (36.4-46.3); Red Blood Count 3.96 M/uL (4.70-6.10); White Blood Count 6.36 K/ul (4.8-10.8)
[2023-07-12 08:32] LABS: BUN Creatinine Ratio 11.9 (10-20); Calcium 9.1 mg/dl (8.6-10.3); Creatinine Clr Calc Pharmacy 109.3 ml/min; Est GFR (African American) 112.8 ml/min; Est GFR (Non-African American) 97.4 ml/min; Magnesium 1.6 mg/dl (1.7-2.4); Potassium 3.7 mmol/L (3.5-5.1)
--- NOTE | 2023-07-12 09:57 | Surgery Progress Note ---
Date of Service July 12, 2023 Assessment & Plan (1) Perforated diverticulum of large intestine: Plan: POD#5 colectomy/ ostomy. avss postop pain controlled TIERNEY drain in pelvis - minimal serosanguineous Leukocytosis resolved no stool output yet Plan: Continue pain management, scheduled IV Tylenol, breakthrough Dilaudid and Toradol prn another dose of Miralax today Full liquids dressing change daily tierney drain to bulb suction Continue abx for total of 10-14 days OOB to chair and ambulate today dvt prophylaxis incentive spirometry continue steroids , med management Dr. maher has seen and examined patient Admission and Anticipated Discharge Date Admission Date: July 07, 2023 Supervising Physician Co-Signing Physician Notes Pt seen and examined. Passing gas into bag, good bowel tones. Wound clean. No nausea. Had hard stool at time of surgery and may be slow to pass through ostomy which is swollen. Will advance to full liquids. OK to resume PO medications. OK to remove drain once has stool in ostomy. Should get 10-14 days of antibiotics total given culture results. Will give another dose of miralax today. Subjective feeling good ambulated hallway 3 times this morning no n,v tolerated clear liquids no stool in ostomy bag yet. Ostomy bag has not been removed since yesterday at 11 Physical Exam Constitutional: WD/WN, vitals as above cooperative and comfortable; no acute distress and not ill appearing Respiratory: normal respiratory effort; no respiratory distress and no labored breathing Gastrointestinal (Abdomen): Inspection/Auscultation: abdomen normal to inspection, + abdomen distended (mild), normal bowel sounds, + abdominal surgical incision (clean/dry/intact), + abdominal surgical drain present (minimal serosanguineous) and + hyperactive bowel sounds Percussion/Palpation: abdomen soft; abdomen nontender, no guarding and abdomen not rigid LLQ ostomy: stoma is edematous , just bowel sweat in bag no stool output yet, not much flatus Skin: no rashes, warm and dry Psychiatric: Orientation: alert and oriented x 3 Results & Data Vital Signs (Past 12 Hours) Vital Signs Temp Pulse Resp BP BP Pulse Ox O2 Del Method 07/12/23 08:56 149/79 H 07/12/23 07:54 36.6 C 75 18 158/76 H 97 Room Air Laboratory Results 07/12/23 07/12/2324 Range/Units 07:50 07:45 20:37 WBC 6.36 (4.8-10.8) K/ul RBC 3.96 L (4.70-6.10) M/uL Hgb 12.3 L (14.0-18.0) g/dl Hct 35.5 L (42.0-52.0) % MCV 89.6 (80.0-100.0) fL MCH 31.1 (25.0-34.0) pg MCHC 34.6 (32.0-36.0) g/dL RDW Std Deviation 40.4 (36.4-46.3) fL RDW Coeff of Magdi 12.4 (11.5-14.5) % Plt Count 180 (130-400) K/uL MPV 9.2 L (9.4-12.4) fL Sodium 140 (136-145) mmol/L Potassium 3.7 (3.5-5.1) mmol/L Chloride 106 (98-107) mmol/L Carbon Dioxide 25 (21-32) mmol/L Anion Gap 9 (3-11) BUN 8 (6-23) mg/dl Creatinine 0.67 (0.6-1.4) mg/dl Est Cr Clr Drug Dosing 109.3 ml/min Est GFR ( Amer) 112.8 ml/min Est GFR (Non-Af Amer) 97.4 ml/min BUN/Creatinine Ratio 11.9 (10-20) Glucose 123 H (70-99(Fasting)) mg/dl POC Glucose 116 H 116 H (70-99) mg/dl Calcium 9.1 (8.6-10.3) mg/dl Magnesium 1.6 L (1.7-2.4) mg/dl 07/11/23 07/11/23 Range/Units 16:46 11:50 WBC (4.8-10.8) K/ul RBC (4.70-6.10) M/uL Hgb (14.0-18.0) g/dl Hct (42.0-52.0) % MCV (80.0-100.0) fL MCH (25.0-34.0) pg MCHC (32.0-36.0) g/dL RDW Std Deviation (36.4-46.3) fL RDW Coeff of Magdi (11.5-14.5) % Plt Count (130-400) K/uL MPV (9.4-12.4) fL Sodium (136-145) mmol/L Potassium (3.5-5.1) mmol/L Chloride (98-107) mmol/L Carbon Dioxide (21-32) mmol/L Anion Gap (3-11) BUN (6-23) mg/dl Creatinine (0.6-1.4) mg/dl Est Cr Clr Drug Dosing ml/min Est GFR ( Amer) ml/min Est GFR (Non-Af Amer) ml/min BUN/Creatinine Ratio (10-20) Glucose (70-99(Fasting)) mg/dl POC Glucose 116 H 158 H (70-99) mg/dl Calcium (8.6-10.3) mg/dl Magnesium (1.7-2.4) mg/dl
[2023-07-12] MEDS: POLYETHYLENE (MIRALAX) 17 GM PACK PO ONE (11:47)
--- NOTE | 2023-07-12 13:03 | Hospitalist Progress Note ---
Date of Service July 12, 2023 Assessment & Plan (1) Pneumoperitoneum: Plan: Mr. Hameed is a 68 year old gentleman with history of hypertension, hyperlipidemia, prostate cancer status post surgery, melanoma status post surgery, PMR currently on steroid Rx, prediabetes, gout, rosacea on doxycycline who is admitted #Sepsis, resolved #Perforated sigmoid diverticulitis c/b pneumoperitoneum #Immunocompromised patient on chronic steroids -S/P Exploratory Laparotomy, sigmoid colectomy, Creation of Colostomy by on 07/07/23 -Blood cultures negative to date -Intra-abdominal fluid cultures grew Pseudomonas, Citrobacter Appreciate surgery input Continue IV fluids--adjust as needed IV Zosyn changed to meropenem given high risk of inducible amp c production -Continue Meropenem for 10-14 days per primary Continue ostomy care Pain control as needed Diet per primary -Full liquids as aof now #Polymyalgia Rheumatica Continue IV Solu-Medrol>> transition to p.o. 4mg daily tomorrow No acute issues #DM II HbA1c 6.5 Continue insulin while hospitalized Monitor BGs Other chronic conditions: #Hypertension -On combination medication at home -Holding amlodipine given exacerbation of constipation -continue valsartan #Gout resume allopurinol in am #Hyperlipidemia resume statin Prostate cancer S/P surgery Melanoma S/P surgery Rosacea Resume home medications as able DVT Px: Heparin SQ CODE STATUS Full code Admission and Anticipated Discharge Date Admission Date: July 07, 2023 Subjective Patient evaluated at bedside Denies any acute concerns Discussed medications and slow introduction of antihypertensives, verbalized understanding Tolerating full liquids now, no stool +gas in ostomy Physical Exam Constitutional: WD/WN, vitals as above Respiratory: normal respiratory effort, lungs clear to auscultation Cardiovascular: RRR, no murmur, no edema Results & Data Results & Data Vital Signs (Past 12 Hours) Vital Signs Temp Pulse Resp BP BP Pulse Ox O2 Del Method 07/12/23 08:56 149/79 H 07/12/23 08:05 Room Air 07/12/23 07:54 36.6 C 75 18 158/76 H 97 Room Air Laboratory Results Short CBC 07/12/23 Range/Units 07:50 WBC 6.36 (4.8-10.8) K/ul Hgb 12.3 L (14.0-18.0) g/dl Hct 35.5 L (42.0-52.0) % Plt Count 180 (130-400) K/uL BMP 07/12/23 07:50 Sodium 140 Potassium 3.7 Chloride 106 Carbon Dioxide 25 BUN 8 Creatinine 0.67 Glucose 123 H Calcium 9.1 Medications Administered Home Medications Medication Instructions Recorded Confirmed Last Taken atorvastatin 20 mg tablet 10 mg PO QAM 07/25/22 07/07/23 07/07/23 doxycycline hyclate 20 mg tablet 20 mg PO BID 07/25/22 07/07/23 07/07/23 08:00 metronidazole 0.75 % topical cream 1 applic topical UD PRN rosacea 07/25/22 07/07/23 05/07/23 07:00 allopurinol 300 mg tablet 300 mg PO QAM 05/01/23 07/07/23 07/07/23 amlodipine 10 mg-valsartan 320 mg 1 tab PO QAM 05/01/23 07/07/23 07/07/23 tablet prednisone 5 mg tablet 5 mg PO DAILY 07/07/23 07/07/23 07/07/23 sildenafil 100 mg tablet 100 mg PO DAILY PRN Sexual Activity 07/07/23 07/07/23 Unknown Active Medications Generic Name Dose Route Start Last Admin Trade Name Freq PRN Reason Stop Dose Admin Benzocaine 1 kole 07/09/23 08:35 07/09/23 09:37 Benzocaine/Menthol 18 Kole/1 Box MT 08/08/23 08:34 1 kole Q1H PRN Administration Sore Throat Heparin Sodium (Porcine) 5,000 units 07/07/23 21:00 07/12/23 08:59 Heparin Sod 5,000 Unit/0.5 Ml Vial SQ 08/06/23 20:59 5,000 units Q12 NATHAN Administration Pantoprazole Sodium 40 mg/ 10 mls @ 5 mls/min 07/08/23 11:00 07/12/23 11:38 Syringe IV 08/07/23 10:59 5 mls/min DAILY@1100 NATHAN Administration Methylprednisolone 4 mg/ 0.4 mls @ 0.133 mls/min 07/08/23 01:45 07/12/23 08:57 Syringe IV 08/07/23 01:44 0.133 mls/min DAILY NATHAN Administration Meropenem 500 mg/ Syringe 10 mls @ 2 mls/min 07/09/23 12:00 07/12/23 12:45 IV 07/19/23 11:59 2 mls/min Q6H NATHAN Administration Protocol Insulin Aspart 0 units 07/10/23 17:15 07/12/23 12:44 Insulin Aspart Per Unit Charge SC 08/09/23 17:14 2 units ACHS NATHAN Administration Insulin Glargine 5 units 07/08/23 07:15 07/10/23 08:34 Lantus Per Unit Charge SQ 08/07/23 07:14 Not Given DAILY [facility] Ketorolac Tromethamine 15 mg 07/09/23 10:49 07/09/23 18:28 Ketorolac 30 Mg/Ml Vial IV 07/14/23 10:48 15 mg Q6H PRN Administration Moderate Pain (Scale 4, 5, 6) Valsartan 160 mg 07/11/23 15:15 07/12/23 08:57 Valsartan 80 Mg Tab PO 08/10/23 15:14 160 mg QAM NATHAN Administration
[2023-07-12] MEDS ORDERED: oxyCODONE/ACETAMINOPHEN 5mg/325mg TAB PO PRN ×2 (14:45)
[2023-07-12] MEDS: MAGNESIUM SULFATE / D5W 1 GM/100 ML BAG IV SCH (17:08)
[2023-07-13] MEDS: ACETAMINOPHEN 325 MG TAB PO PRN (03:17)
[2023-07-13 07:11] LABS: Hematocrit (blood only) 36.1 % (42.0-52.0); Hemoglobin 12.9 g/dl (14.0-18.0); Mean Corpuscular Hemoglobin 31.5 pg (25.0-34.0); Mean Corpuscular Hgb Conc 35.7 g/dL (32.0-36.0); Mean Corpuscular Volume 88.3 fL (80.0-100.0); Mean Platelet Volume 9.2 fL (9.4-12.4); Platelet Count 203 K/uL (130-400); RDW Coefficient of Variation 12.8 % (11.5-14.5); RDW Standard Deviation 41.1 fL (36.4-46.3); Red Blood Count 4.09 M/uL (4.70-6.10)
[2023-07-13 07:36] LABS: BUN Creatinine Ratio 14.3 (10-20); Calcium 9.5 mg/dl (8.6-10.3); Creatinine Clr Calc Pharmacy 116.2 ml/min; Est GFR (African American) 115.7 ml/min; Est GFR (Non-African American) 99.8 ml/min; Magnesium 1.8 mg/dl (1.7-2.4)
[2023-07-13] MEDS: allopurinoL 300 MG TAB PO SCH (07:57)
[2023-07-13] MEDS: VALSARTAN 80 MG TAB PO SCH (07:57)
[2023-07-13] MEDS: ATORVASTATIN 10 MG TAB PO SCH (07:57)
[2023-07-13] MEDS: predniSONE 1 MG TAB PO SCH (07:58)
--- NOTE | 2023-07-13 09:41 | Surgery Progress Note ---
Date of Service July 13, 2023 Assessment & Plan (1) Perforated diverticulum of large intestine: Plan: POD#6 colectomy/ ostomy. avss postop pain controlled TIERNEY drain in pelvis - minimal serosanguineous Leukocytosis resolved no stool output yet Plan: Continue pain management prn Full liquids BID Colace dressing change daily tierney drain to bulb suction, can remove prior to discharge Continue abx for total of 10-14 days OOB to chair and ambulate today dvt prophylaxis incentive spirometry continue medical management if no bowel movement in 1-2 days may need to consider repeating ct scan [facility] surgery covering the weekend Dr. Valencia has seen and examined patient, agrees with above Admission and Anticipated Discharge Date Admission Date: July 07, 2023 Subjective feeling good, minimal to no abdominal pain tolerated full liquids no bloating no nausea or vomiting no stool in ostomy yet Physical Exam Constitutional: WD/WN, vitals as above cooperative and comfortable; no acute distress and not ill appearing Respiratory: normal respiratory effort; no respiratory distress, no labored breathing and no retractions Gastrointestinal (Abdomen): Inspection/Auscultation: abdomen normal to inspection, normal bowel sounds, + abdominal surgical incision (clean/dry/chito intact) and + abdominal surgical drain present (serosanguineous); abdomen not distended Percussion/Palpation: abdomen soft; abdomen nontender, no guarding, abdomen not rigid and abdomen not firm Ostomy beefy red with some edema, sweat in bag no stool yet Skin: no rashes, warm and dry Psychiatric: A+Ox3, euthymic affect Results & Data Vital Signs (Past 12 Hours) Vital Signs Temp Pulse Resp BP Pulse Ox O2 Del Method 07/13/23 07:11 36.6 C 94 H 18 135/76 97 Room Air Laboratory Results 07/13/23 07/13/23 07/12/23 Range/Units 07:44 06:36 20:29 WBC 7.30 (4.8-10.8) K/ul RBC 4.09 L (4.70-6.10) M/uL Hgb 12.9 L (14.0-18.0) g/dl Hct 36.1 L (42.0-52.0) % MCV 88.3 (80.0-100.0) fL MCH 31.5 (25.0-34.0) pg MCHC 35.7 (32.0-36.0) g/dL RDW Std Deviation 41.1 (36.4-46.3) fL RDW Coeff of Magdi 12.8 (11.5-14.5) % Plt Count 203 (130-400) K/uL MPV 9.2 L (9.4-12.4) fL Sodium 141 (136-145) mmol/L Potassium 4.0 (3.5-5.1) mmol/L Chloride 106 (98-107) mmol/L Carbon Dioxide 27 (21-32) mmol/L Anion Gap 8 (3-11) BUN 9 (6-23) mg/dl Creatinine 0.63 (0.6-1.4) mg/dl Est Cr Clr Drug Dosing 116.2 ml/min Est GFR ( Amer) 115.7 ml/min Est GFR (Non-Af Amer) 99.8 ml/min BUN/Creatinine Ratio 14.3 (10-20) Glucose 122 H (70-99(Fasting)) mg/dl POC Glucose 147 H 165 H (70-99) mg/dl Calcium 9.5 (8.6-10.3) mg/dl Magnesium 1.8 (1.7-2.4) mg/dl 07/12/23 07/12/23 Range/Units 16:39 11:46 WBC (4.8-10.8) K/ul RBC (4.70-6.10) M/uL Hgb (14.0-18.0) g/dl Hct (42.0-52.0) % MCV (80.0-100.0) fL MCH (25.0-34.0) pg MCHC (32.0-36.0) g/dL RDW Std Deviation (36.4-46.3) fL RDW Coeff of Magdi (11.5-14.5) % Plt Count (130-400) K/uL MPV (9.4-12.4) fL Sodium (136-145) mmol/L Potassium (3.5-5.1) mmol/L Chloride (98-107) mmol/L Carbon Dioxide (21-32) mmol/L Anion Gap (3-11) BUN (6-23) mg/dl Creatinine (0.6-1.4) mg/dl Est Cr Clr Drug Dosing ml/min Est GFR ( Amer) ml/min Est GFR (Non-Af Amer) ml/min BUN/Creatinine Ratio (10-20) Glucose (70-99(Fasting)) mg/dl POC Glucose 103 H 137 H (70-99) mg/dl Calcium (8.6-10.3) mg/dl Magnesium (1.7-2.4) mg/dl
[2023-07-13] MEDS: DOCUSATE SODIUM 100 MG CAP PO SCH (12:52)
[2023-07-13] MEDS: POLYETHYLENE (MIRALAX) 17 GM PACK PO STA (15:56)
--- NOTE | 2023-07-13 17:06 | Hospitalist Progress Note ---
Date of Service July 13, 2023 Assessment & Plan (1) Pneumoperitoneum: Plan: Mr. Hameed is a 68 year old gentleman with history of hypertension, hyperlipidemia, prostate cancer status post surgery, melanoma status post surgery, PMR currently on steroid Rx, prediabetes, gout, rosacea on doxycycline who is admitted #Sepsis, resolved #Perforated sigmoid diverticulitis c/b pneumoperitoneum #Immunocompromised patient on chronic steroids -S/P Exploratory Laparotomy, sigmoid colectomy, Creation of Colostomy by on 07/07/23 -Blood cultures negative to date -Intra-abdominal fluid cultures grew Pseudomonas, Citrobacter Appreciate surgery input Continue IV fluids--adjust as needed IV Zosyn changed to meropenem given high risk of inducible amp c production -Continue Meropenem for 10-14 days per primary Continue ostomy care Pain control as needed Diet per primary -Full liquids as of now #Acute anemia 2/2 post operative losses *stable Baseline appears ~14, now 11 s/p colectomy/ostomy, stable Stable, trend cbc tranfuse <7.0 #Polymyalgia Rheumatica Continue IV Solu-Medrol>> continue 4mg prednisone daily No acute issues #DM II HbA1c 6.5 Continue insulin while hospitalized Monitor BGs Other chronic conditions: #Hypertension -On combination medication at home -Holding amlodipine given exacerbation of constipation -continue valsartan #Gout continue allopurinol #Hyperlipidemia resume statin Prostate cancer S/P surgery Melanoma S/P surgery Rosacea Resume home medications as able DVT Px: Heparin SQ CODE STATUS Full code Admission and Anticipated Discharge Date Admission Date: July 07, 2023 Subjective NAEO Reports gas, no ostomy output otherwise Endorses feeling great overall and no concerns Physical Exam Constitutional: WD/WN, vitals as above Respiratory: normal respiratory effort, lungs clear to auscultation Cardiovascular: RRR, no murmur, no edema Results & Data Results & Data Vital Signs (Past 12 Hours) Vital Signs Temp Pulse Resp BP Pulse Ox O2 Del Method 07/13/23 07:11 36.6 C 94 H 18 135/76 97 Room Air Laboratory Results Short CBC 07/13/23 Range/Units 06:36 WBC 7.30 (4.8-10.8) K/ul Hgb 12.9 L (14.0-18.0) g/dl Hct 36.1 L (42.0-52.0) % Plt Count 203 (130-400) K/uL BMP 07/13/23 06:36 Sodium 141 Potassium 4.0 Chloride 106 Carbon Dioxide 27 BUN 9 Creatinine 0.63 Glucose 122 H Calcium 9.5 Medications Administered Home Medications Medication Instructions Recorded Confirmed Last Taken atorvastatin 20 mg tablet 10 mg PO QAM 07/25/22 07/07/23 07/07/23 doxycycline hyclate 20 mg tablet 20 mg PO BID 07/25/22 07/07/23 07/07/23 08:00 metronidazole 0.75 % topical cream 1 applic topical UD PRN rosacea 07/25/22 07/07/23 05/07/23 07:00 allopurinol 300 mg tablet 300 mg PO QAM 05/01/23 07/07/23 07/07/23 amlodipine 10 mg-valsartan 320 mg 1 tab PO QAM 05/01/23 07/07/23 07/07/23 tablet prednisone 5 mg tablet 5 mg PO DAILY 07/07/23 07/07/23 07/07/23 sildenafil 100 mg tablet 100 mg PO DAILY PRN Sexual Activity 07/07/23 07/07/23 Unknown ciprofloxacin HCl 500 mg tablet 500 mg PO BID #14 tabs 07/13/23 Unknown (Cipro) metronidazole 500 mg tablet 500 mg PO TID #21 tabs 07/13/23 Unknown Active Medications Generic Name Dose Route Start Last Admin Trade Name Freq PRN Reason Stop Dose Admin Acetaminophen 650 mg 07/12/23 14:45 07/13/23 08:44 Acetaminophen 325 Mg Tab PO 08/11/23 14:44 650 mg Q4H PRN Administration Mild Pain (Scale 1, 2, 3) Allopurinol 300 mg 07/13/23 09:00 07/13/23 07:57 Allopurinol 300 Mg Tab PO 08/12/23 08:59 300 mg QAM NATHAN Administration Atorvastatin Calcium 10 mg 07/13/23 09:00 07/13/23 07:57 Atorvastatin 10 Mg Tab PO 08/12/23 08:59 10 mg QAM NATHAN Administration Benzocaine 1 kole 07/09/23 08:35 07/09/23 09:37 Benzocaine/Menthol 18 Kole/1 Box MT 08/08/23 08:34 1 kole Q1H PRN Administration Sore Throat Docusate Sodium 100 mg 07/13/23 12:30 07/13/23 12:52 Docusate Sodium 100 Mg Cap PO 08/12/23 12:29 100 mg BID NATHAN Administration Heparin Sodium (Porcine) 5,000 units 07/07/23 21:00 07/13/23 07:56 Heparin Sod 5,000 Unit/0.5 Ml Vial SQ 08/06/23 20:59 5,000 units Q12 NATHAN Administration Meropenem 500 mg/ Syringe 10 mls @ 2 mls/min 07/09/23 12:00 07/13/23 11:55 IV 07/19/23 11:59 2 mls/min Q6H NATHAN Administration Protocol Insulin Aspart 0 units 07/10/23 17:15 07/13/23 12:52 Insulin Aspart Per Unit Charge SC 08/09/23 17:14 3 units ACHS NATHAN Administration Insulin Glargine 5 units 07/08/23 07:15 07/10/23 08:34 Lantus Per Unit Charge SQ 08/07/23 07:14 Not Given DAILY [facility] Ketorolac Tromethamine 15 mg 07/09/23 10:49 07/09/23 18:28 Ketorolac 30 Mg/Ml Vial IV 07/14/23 10:48 15 mg Q6H PRN Administration Moderate Pain (Scale 4, 5, 6) Prednisone 4 mg 07/13/23 09:00 07/13/23 07:58 Prednisone 1 Mg Tab PO 08/12/23 08:59 4 mg DAILY NATHAN Administration Valsartan 320 mg 07/13/23 09:00 07/13/23 07:57 Valsartan 80 Mg Tab PO 08/12/23 08:59 320 mg QAM NATHAN Administration
--- NOTE | 2023-07-14 05:36 | Surgery Progress Note ---
Date of Service July 14, 2023 Assessment & Plan (1) Perforated diverticulum of large intestine: Plan: Status post Shay procedure on 07/07/2023 (postop day #7) Continue diet as tolerated; consideration may be given to further advancing diet as colostomy has now started to produce output Continue analgesics as needed Continue antiemetics as needed Continue antibiotics in the form of meropenem; Operative cultures have grown Pseudomonas which is sensitive to Ciproplans noted by primary surgical team for patient to be discharged on Cipro and Flagyl to complete a total course of 10 to 14 days Continue to encourage mobilization Subcutaneous heparin is in place for DVT prevention Admission and Anticipated Discharge Date Admission Date: July 07, 2023 Supervising Physician Co-Signing Physician Notes pnt S&E, agree w/ above. S/P Quezada's, stool in bag, tolerating fulls. afvss, abd appropriately ttp, ostomy functioning, congested. incision w/o infx. adv to low fiber, potential d/c tomorrow Subjective Patient is resting comfortably in bed. He denies any fevers, shakes, or chills. He denies any shortness of breath. Patient notes he is tolerating full liquids without any nausea or vomiting. He notes that since his surgery his abdominal pain is markedly improved. He notes over the past 12 to 24 hours he has had colostomy output in the form of brown stool. Physical Exam Gastrointestinal (Abdomen): Abdomen is soft and nondistended. Bowel sounds are present. He has appropriate tenderness near surgical incision. Incision is clean, dry, and intact with chito. Colostomy is pink and viable and there is brown stool in the collection bag. CHRISTY drain is in place draining serous fluid and has drained 20 cc over the past 24 hours. Results & Data Vital Signs (Past 12 Hours) Vital Signs Temp Pulse Resp BP BP Pulse Ox O2 Del Method 07/13/23 22:45 82 133/73 07/13/23 21:51 36.6 C 78 18 118/67 95 Room Air PG Care Time/CCT Total # of Minutes Spent Total Time Spent with Patient: Total time spent is greater than 50% in coordination of care (as documented) at patient's floor/unit and/or counseling patient: Coding Level of Care Code 27926 Post Operative Follow-Up Diagnoses Perforated diverticulum of large intestine K57.20
--- NOTE | 2023-07-14 07:17 | Hospitalist Progress Note ---
Date of Service July 14, 2023 Assessment & Plan (1) Pneumoperitoneum: Plan: Mr. Hameed is a 68 year old gentleman with history of hypertension, hyperlipidemia, prostate cancer status post surgery, melanoma status post surgery, PMR currently on steroid Rx, prediabetes, gout, rosacea on doxycycline who is admitted #Sepsis, resolved #Perforated sigmoid diverticulitis c/b pneumoperitoneum #Immunocompromised patient on chronic steroids -S/P Exploratory Laparotomy, sigmoid colectomy, Creation of Colostomy by on 07/07/23 -Blood cultures negative to date -Intra-abdominal fluid cultures grew Pseudomonas, Citrobacter Appreciate surgery input Continue IV fluids--adjust as needed IV Zosyn changed to meropenem given high risk of inducible amp c production -Continue antibiotics per primary Continue ostomy care Pain control as needed Diet per primary -Full liquids as of now, adavncing this afternoon given stool output #Acute anemia 2/2 post operative losses *stable Baseline appears ~14, now 11 s/p colectomy/ostomy, stable Stable, trend cbc tranfuse <7.0 #Polymyalgia Rheumatica Continue IV Solu-Medrol>> continue 4mg prednisone daily No acute issues #DM II HbA1c 6.5 Continue insulin while hospitalized Monitor BGs Other chronic conditions: #Hypertension -On combination medication at home -Holding amlodipine given exacerbation of constipation -continue valsartan #Gout continue allopurinol #Hyperlipidemia resume statin Prostate cancer S/P surgery Melanoma S/P surgery Rosacea Resume home medications as able DVT Px: Heparin SQ CODE STATUS Full code Admission and Anticipated Discharge Date Admission Date: July 07, 2023 Subjective NAEO Patient excited about stool output in bag, reports feeling well and excited for progress Physical Exam Constitutional: WD/WN, vitals as above Respiratory: normal respiratory effort, lungs clear to auscultation Cardiovascular: RRR, no murmur, no edema Gastrointestinal (Abdomen): liquid output in osotomy Results & Data Results & Data Vital Signs (Past 12 Hours) Vital Signs Temp Pulse Resp BP BP Pulse Ox O2 Del Method 07/13/23 22:45 82 133/73 07/13/23 21:51 36.6 C 78 18 118/67 95 Room Air Medications Administered Home Medications Medication Instructions Recorded Confirmed Last Taken atorvastatin 20 mg tablet 10 mg PO QAM 07/25/22 07/07/23 07/07/23 doxycycline hyclate 20 mg tablet 20 mg PO BID 07/25/22 07/07/23 07/07/23 08:00 metronidazole 0.75 % topical cream 1 applic topical UD PRN rosacea 07/25/22 07/07/23 05/07/23 07:00 allopurinol 300 mg tablet 300 mg PO QAM 05/01/23 07/07/23 07/07/23 amlodipine 10 mg-valsartan 320 mg 1 tab PO QAM 05/01/23 07/07/23 07/07/23 tablet prednisone 5 mg tablet 5 mg PO DAILY 07/07/23 07/07/23 07/07/23 sildenafil 100 mg tablet 100 mg PO DAILY PRN Sexual Activity 07/07/23 07/07/23 Unknown ciprofloxacin HCl 500 mg tablet 500 mg PO BID #14 tabs 07/13/23 Unknown (Cipro) metronidazole 500 mg tablet 500 mg PO TID #21 tabs 07/13/23 Unknown valsartan 80 mg tablet (Diovan) 320 mg (4 x 80 mg) PO QAM #30 tabs 07/14/23 Unknown Active Medications Generic Name Dose Route Start Last Admin Trade Name Freq PRN Reason Stop Dose Admin Acetaminophen 650 mg 07/12/23 14:45 07/14/23 08:58 Acetaminophen 325 Mg Tab PO 08/11/23 14:44 650 mg Q4H PRN Administration Mild Pain (Scale 1, 2, 3) Allopurinol 300 mg 07/13/23 09:00 07/14/23 08:39 Allopurinol 300 Mg Tab PO 08/12/23 08:59 300 mg QAM NATHAN Administration Atorvastatin Calcium 10 mg 07/13/23 09:00 07/14/23 08:39 Atorvastatin 10 Mg Tab PO 08/12/23 08:59 10 mg QAM NATHAN Administration Benzocaine 1 kole 07/09/23 08:35 07/09/23 09:37 Benzocaine/Menthol 18 Kole/1 Box MT 08/08/23 08:34 1 kole Q1H PRN Administration Sore Throat Docusate Sodium 100 mg 07/13/23 12:30 07/14/23 08:40 Docusate Sodium 100 Mg Cap PO 08/12/23 12:29 100 mg BID NATHAN Administration Heparin Sodium (Porcine) 5,000 units 07/07/23 21:00 07/14/23 08:40 Heparin Sod 5,000 Unit/0.5 Ml Vial SQ 08/06/23 20:59 5,000 units Q12 NATHAN Administration Meropenem 500 mg/ Syringe 10 mls @ 2 mls/min 07/09/23 12:00 07/14/23 05:32 IV 07/19/23 11:59 2 mls/min Q6H NATHAN Administration Protocol Insulin Aspart 0 units 07/10/23 17:15 07/14/23 08:59 Insulin Aspart Per Unit Charge SC 08/09/23 17:14 5 units ACHS NATHAN Administration Insulin Glargine 5 units 07/08/23 07:15 07/10/23 08:34 Lantus Per Unit Charge SQ 08/07/23 07:14 Not Given DAILY NATHAN Ketorolac Tromethamine 15 mg 07/09/23 10:49 07/09/23 18:28 Ketorolac 30 Mg/Ml Vial IV 07/14/23 10:48 15 mg Q6H PRN Administration Moderate Pain (Scale 4, 5, 6) Prednisone 4 mg 07/13/23 09:00 07/14/23 08:39 Prednisone 1 Mg Tab PO 08/12/23 08:59 4 mg DAILY NATHAN Administration Valsartan 320 mg 07/13/23 09:00 07/14/23 08:39 Valsartan 80 Mg Tab PO 08/12/23 08:59 320 mg QAM NATHAN Administration
--- NOTE | 2023-07-15 05:44 | Surgery Progress Note ---
Date of Service July 15, 2023 Assessment & Plan (1) Perforated diverticulum of large intestine: Plan: Status post Shay procedure on 07/07/2023 (postop day #8) Continue diet as tolerated, which is currently solid food Continue analgesics as needed Continue antiemetics as needed Continue antibiotics in the form of meropenem while hospitalized; Operative cultures noted to have grown Pseudomonas which is sensitive to Ciproplans noted by primary surgical team for patient to be discharged on Cipro and Flagyl to complete a total course of 10 to 14 days Continue to ambulate as tolerated Subcutaneous heparin is in place for DVT prevention Admission and Anticipated Discharge Date Admission Date: July 07, 2023 Supervising Physician Co-Signing Physician Notes pnt S&E, agree w/ above. S/P Quezada's, stool in bag, tolerating fulls. afvss, abd appropriately ttp, ostomy functioning, congested. incision w/o infx. d/c drain, d/c to home. f/u w/ Dr. Medina. WOund care instructions, activity restrictions reviewed Subjective The patient notes that he had a good day yesterday. He continues to ambulate in the hallway without difficulty. He had his diet advanced to solid foods which he tolerated without exacerbating any abdominal pain and he did not experience any nausea or vomiting with diet advancement. He notes he continues to have brown stool output in his colostomy. He denies any shortness of breath. He notes minimal abdominal pain at this time. Physical Exam Gastrointestinal (Abdomen): Abdomen is soft and nondistended. He has appropriate tenderness near surgical incision. Incision is intact with chito. Colostomy appears viable and has brown stool noted in the collection bag. CHRISTY drain is in place draining serous fluid and has drained 13 cc yesterday. Results & Data Vital Signs (Past 12 Hours) Vital Signs Temp Pulse Resp BP Pulse Ox O2 Del Method 07/14/23 22:06 36.8 C 76 18 130/68 94 Room Air PG Care Time/CCT Total # of Minutes Spent Total Time Spent with Patient: Total time spent is greater than 50% in coordination of care (as documented) at patient's floor/unit and/or counseling patient: Coding Level of Care Code 62900 Post Operative Follow-Up Diagnoses Perforated diverticulum of large intestine K57.20
--- NOTE | 2023-07-15 07:01 | Hospitalist Progress Note ---
Date of Service July 15, 2023 Assessment & Plan (1) Pneumoperitoneum: Plan: Mr. Hameed is a 68 year old gentleman with history of hypertension, hyperlipidemia, prostate cancer status post surgery, melanoma status post surgery, PMR currently on steroid Rx, prediabetes, gout, rosacea on doxycycline who is admitted for sepsis 2/2 perforated sigmoid diverticulitis. s/p colectomy 07/06.Post op course prolonged 2/2 delayed ostomy output. However patient with stool on with final advancement in diet. #Sepsis, resolved #Perforated sigmoid diverticulitis c/b pneumoperitoneum #Immunocompromised patient on chronic steroids -S/P Exploratory Laparotomy, sigmoid colectomy, Creation of Colostomy by on 07/07/23 -Blood cultures negative to date -Intra-abdominal fluid cultures grew Pseudomonas, Citrobacter Appreciate surgery input Continue IV fluids--adjust as needed IV Zosyn changed to meropenem given high risk of inducible amp c production -Continue antibiotics per primary upon dishcarge Continue ostomy care Pain control as needed Diet per primary #Acute anemia 2/2 post operative losses *stable Baseline appears ~14, now 11 s/p colectomy/ostomy, stable #Polymyalgia Rheumatica Continue IV Solu-Medrol>> continue 4mg prednisone daily No acute issues #DM II HbA1c 6.5 Continue insulin while hospitalized Monitor BGs #Hypertension -On combination medication at home -Holding amlodipine given exacerbation of constipation -continue valsartan as op, consideration for resumption of combo medication upon consistent bowel output #Gout continue allopurinol #Hyperlipidemia resume statin Prostate cancer S/P surgery Melanoma S/P surgery Rosacea Resume home medications as able DVT Px: Heparin SQ CODE STATUS Full code Admission and Anticipated Discharge Date Admission Date: July 07, 2023 Subjective NAEO Eager for discharge this morning Denies any new concerns Physical Exam Constitutional: WD/WN, vitals as above Respiratory: normal respiratory effort, lungs clear to auscultation Cardiovascular: RRR, no murmur, no edema Results & Data Results & Data Vital Signs (Past 12 Hours) Vital Signs Temp Pulse Resp BP Pulse Ox O2 Del Method 07/14/23 22:06 36.8 C 76 18 130/68 94 Room Air Medications Administered Home Medications Medication Instructions Recorded Confirmed Last Taken atorvastatin 20 mg tablet 10 mg PO QAM 07/25/22 07/07/23 07/07/23 doxycycline hyclate 20 mg tablet 20 mg PO BID 07/25/22 07/07/23 07/07/23 08:00 metronidazole 0.75 % topical cream 1 applic topical UD PRN rosacea 07/25/22 07/07/23 05/07/23 07:00 allopurinol 300 mg tablet 300 mg PO QAM 05/01/23 07/07/23 07/07/23 amlodipine 10 mg-valsartan 320 mg 1 tab PO QAM 05/01/23 07/07/23 07/07/23 tablet prednisone 5 mg tablet 5 mg PO DAILY 07/07/23 07/07/23 07/07/23 sildenafil 100 mg tablet 100 mg PO DAILY PRN Sexual Activity 07/07/23 07/07/23 Unknown ciprofloxacin HCl 500 mg tablet 500 mg PO BID #14 tabs 07/13/23 Unknown (Cipro) metronidazole 500 mg tablet 500 mg PO TID #21 tabs 07/13/23 Unknown valsartan 80 mg tablet (Diovan) 320 mg (4 x 80 mg) PO QAM #30 tabs 07/14/23 Unknown Active Medications Generic Name Dose Route Start Last Admin Trade Name Freq PRN Reason Stop Dose Admin Acetaminophen 650 mg 07/12/23 14:45 07/14/23 08:58 Acetaminophen 325 Mg Tab PO 08/11/23 14:44 650 mg Q4H PRN Administration Mild Pain (Scale 1, 2, 3) Allopurinol 300 mg 07/13/23 09:00 07/15/23 08:27 Allopurinol 300 Mg Tab PO 08/12/23 08:59 300 mg QAM NATHAN Administration Atorvastatin Calcium 10 mg 07/13/23 09:00 07/15/23 08:27 Atorvastatin 10 Mg Tab PO 08/12/23 08:59 10 mg QAM NATHAN Administration Benzocaine 1 kole 07/09/23 08:35 07/09/23 09:37 Benzocaine/Menthol 18 Kole/1 Box MT 08/08/23 08:34 1 kole Q1H PRN Administration Sore Throat Docusate Sodium 100 mg 07/13/23 12:30 07/15/23 08:26 Docusate Sodium 100 Mg Cap PO 08/12/23 12:29 100 mg BID NATHAN Administration Heparin Sodium (Porcine) 5,000 units 07/07/23 21:00 07/15/23 08:26 Heparin Sod 5,000 Unit/0.5 Ml Vial SQ 08/06/23 20:59 5,000 units Q12 NATHAN Administration Meropenem 500 mg/ Syringe 10 mls @ 2 mls/min 07/09/23 12:00 07/15/23 05:24 IV 07/19/23 11:59 2 mls/min Q6H NATHAN Administration Protocol Insulin Aspart 0 units 07/10/23 17:15 07/15/23 08:33 Insulin Aspart Per Unit Charge SC 08/09/23 17:14 4 units ACHS NATHAN Administration Insulin Glargine 5 units 07/08/23 07:15 07/10/23 08:34 Lantus Per Unit Charge SQ 08/07/23 07:14 Not Given DAILY NATHAN Prednisone 4 mg 07/13/23 09:00 07/15/23 08:27 Prednisone 1 Mg Tab PO 08/12/23 08:59 4 mg DAILY NATHAN Administration Valsartan 320 mg 07/13/23 09:00 07/15/23 08:27 Valsartan 80 Mg Tab PO 08/12/23 08:59 320 mg QAM NATHAN Administration
--- NOTE | 2023-07-18 15:28 | Coding Query ---
CODING QUERY To promote full compliance with coding requirements relating to patient care, provider participation is requested in all cases of bead preparer uncertainty. Please assist us with the question(s) below: Coding Question(s): Pathology notes-acute diverticulitis with abscess formation; sectioning reveals multiple diverticula and what appears to be a possible abscess cavity within or immediately anterior to the wall. Progress notes: -Intra-abdominal fluid cultures grew Pseudomonas, Citrobacter Patient found to have perforated sigmoid diverticulitis and pelvic pus intraoperatively. Can you please clarify if you concur with the abscess formation and also pls clarify the actual site of the abscess (i.e. abdominal cavity, abdominal wall, abdomino-pelvic cavity) Physician's Response(s): Pt had an intra abdomino-pelvic cavity abscess. Thank you Celine Virk Principal Diagnosis: "that condition established after study, to be chiefly responsible for occasioning the admission of the patient to the hospital for care." Co-Existing Principal Diagnosis: "when two or more diagnoses equally meet the criteria for principal diagnosis as determined by the circumstances of admission, diagnostic work up, and/or therapy provided, and the Alphabetic Index, Tabular List, or another coding guideline does not provide sequencing direction, any one of the diagnoses may be sequenced first." "When the physician has documented what appears to be a current diagnosis in the body of the record, but has not included the diagnosis in the final diagnostic statement, the physician should be asked whether the diagnosis should be added." (Source Coding [facility] 2 QTR90. p3-4) KIRK
== END 2023-07-15 11:48 | disposition home health service (06) | DRG 853 ==
LOC: ED 11:58 → OR 16:28 → 3W 16:28

== ENCOUNTER 2025-03-20 07:08 | Observation (INO) ==
--- NOTE | 2025-02-10 14:01 | PAT Medication Instructions ---
Medication Instructions Date of Service February 10, 2025 Home Medications metronidazole 0.75 % topical cream 1 applic topical UD PRN rosacea allopurinol 300 mg tablet 300 mg PO QAM amlodipine 10 mg-valsartan 320 mg tablet 1 tab PO QAM atorvastatin 10 mg tablet 10 mg PO QAM psyllium husk 3.4 gram/5.4 gram oral powder (Metamucil) 1 tbsp PO QAM STOP taking 24 hours before surgery metronidazole 0.75 % topical cream 1 applic topical UD PRN rosacea DO NOT take the morning of surgery psyllium husk 3.4 gram/5.4 gram oral powder (Metamucil) 1 tbsp PO QAM Take morning of surgery With a small sip of water, OTHERWISE NOTHING TO EAT OR DRINK AFTER MIDNIGHT: allopurinol 300 mg tablet 300 mg PO QAM amlodipine 10 mg-valsartan 320 mg tablet 1 tab PO QAM atorvastatin 10 mg tablet 10 mg PO QAM Other Notes If you have any questions please call us at [phone] or [phone] or [phone] or [phone]
--- NOTE | 2025-02-18 09:03 | Anesthesiology Consultation ---
Date of Service February 18, 2025 Assessment & Plan (1) Encounter for pre-operative examination: - Infectious disease screening: Per assessment on 02/18/25- No known recent infectious disease contacts or current infectious disease symptoms. - Outpatient joint assessment: Pt currently scheduled for inpatient pathway. If surgeon requests review for outpatient joint pathway, patient is an acceptable candidate for outpatient joint program from anesthesia standpoint pending surgeon's office assessment that patient is motivated, has good support and completes [facility] Program preop requirements. Chart Review Chart Review: Acceptable Risk for Surgery and Patient seen in Pre Admission Testing Teaching & Discussion Pre-Anesthesia Teaching/Discussion Notes: Instructed NPO after midnight before surgery,except medications with 15 cc of water. Medication instructions provided according to the PAT guidelines. History Surgery Operation Date: 03/20/25 13:00 Proposed Procedures p Right Anterior Total Hip Arthroplasty - Davidson Anderson DO Height/Weight Height: 5 ft 10 in Weight: 92.9 kg Allergies Allergy/AdvReac Type Severity Reaction Status Date / Time No Known Allergies Allergy Verified 02/10/25 12:18 Medications Home Medications Medication Instructions Recorded Confirmed Last Taken metronidazole 0.75 % topical cream 1 applic topical UD PRN rosacea 07/25/22 02/10/25 05/07/23 07:00 allopurinol 300 mg tablet 300 mg PO QAM 05/01/23 02/10/25 07/07/23 amlodipine 10 mg-valsartan 320 mg 1 tab PO QAM 02/10/25 02/10/25 Unknown tablet atorvastatin 10 mg tablet 10 mg PO QAM 02/10/25 02/10/25 Unknown psyllium husk 3.4 gram/5.4 gram 1 tbsp PO QAM 02/10/25 02/10/25 Unknown oral powder (Metamucil) Past Medical History Medical History Arthritis Claustrophobia History of diverticulitis History of gout History of kidney stones History of prostate cancer s/p prostatectomy HTN (hypertension) Hyperlipidemia PMR (polymyalgia rheumatica) Prediabetes Rosacea Exercise / Class Metabolic Activity II 4-5 Yardwork/Stairs/Walk up hill Past Family History Family History Other No family history of adverse response to anesthesia No pertinent family history Past Surgical History Surgical History H/O prostatectomy 05/2023 History of colon resection (07/07/23) d/t diverticulitis > colostomy > ileostomy > then reversed (surgeries done at [place] and [facility]) History of colonoscopy History of endoscopy History of hip surgery left hip resurfacing History of melanoma excision History of shoulder surgery right History of tooth extraction Past Anesthesia History No Hx of Anesthesia Complications and No Family Hx of Anesthesia Complications History of PONV No Hx of PONV and Hx of Motion Sickness (Situational; seasickness) Social History Smoking Status: Light tobacco smoker tobacco type: cigars (Occasional cigars "during summer when outside") Do You Dip or Chew Tobacco: No Hx Alcohol Use: Yes Alcohol type: hard liquor alcohol intake frequency: a few times a week Hx Substance Use: No substance use type: does not use Review of Systems Patient denies chest pain, shortness of breath, dyspnea on exertion, fever, chills, cough, wheezing. Physical Exam Vital Signs BP 127/76 P 87 TEMP 98.4 SP02 96%RA RESP 16 Physical Full cervical extension range of motion. Full TMJ range of motion. TMD 3 finger breaths Mallampati Score III Dentition: intact, 3 implants, several crowns Lungs: clear throughout to auscultation Cardiac: regular rate and rhythm, no murmurs noted Spine: normal Carotid arteries: negative bruit Extremities: no LE edema Lab Results Anesthesia Preop Results Results Anesthesia Widget: WBC 6.55 K/ul (4.8-10.8) 02/18/25 Hgb 14.5 g/dL (14.0-18.0) 02/18/25 Hct 40.6 % (42.0-52.0) L 02/18/25 Plt 191 K/uL (130-400) 02/18/25 Na 140 mmol/L (136-145) 02/18/25 K 4.2 mmol/L (3.5-5.1) 02/18/25 Cl 104 mmol/L (98-107) 02/18/25 CO2 28 mmol/L (21-32) 02/18/25 BUN 17 mg/dl (6-23) 02/18/25 Creat 0.83 mg/dl (0.6-1.4) 02/18/25 Glucose Level 114 mg/dl (70-99(Fasting)) H 02/18/25 PT 10.5 Seconds (9.0-12.0) 02/18/25 PTT 27 Seconds (21-31) 02/18/25 INR 1.0 (0.9-1.1) 02/18/25 Blood Type O Positive 02/18/25 Antibody Screen NEGATIVE 02/18/25 Testing Electrocardiogram Date: 02/18/25 NSR at 77bpm. LAD. No significant change compared to 07/07/2023 per head piece assembler comparison. Chest X-Ray Date: 11/18/24 Findings: + NAD
--- NOTE | 2025-03-19 07:30 | History & Physical Report ---
Date of Service March 19, 2025 Assessment & Plan (1) Degenerative joint disease of right hip: We will proceed with a right total hip arthroplasty. Postoperatively, he will be started on aspirin for DVT prophylaxis and kept overnight in the hospital for postop medical management. He plans to use the energy physical therapy after discharge. History of Present Illness Chief Complaint: Osteoarthritis of the right hip. Primary Care Provider: Reddy Hines MD Arnav is a pleasant 69-year-old male who has been dealing with chronic increasing right hip and groin pain. He had a left hip resurfacing done in [place] years ago. He has done well with that. Unfortunately, he is really struggling with his right hip. X-rays have done at [facility], which shown advanced arthritis. After failing conservative treatment, he has elected to proceed with a right anterior total of arthroplasty. Allergies Allergy/AdvReac Type Severity Reaction Status Date / Time No Known Allergies Allergy Verified 02/10/25 12:18 Home Medications Medication Instructions Recorded Confirmed Type metronidazole 0.75 % topical cream 1 applic topical UD PRN rosacea 07/25/22 02/10/25 History allopurinol 300 mg tablet 300 mg PO QAM 05/01/23 02/10/25 History amlodipine 10 mg-valsartan 320 mg 1 tab PO QAM 02/10/25 02/10/25 History tablet atorvastatin 10 mg tablet 10 mg PO QAM 02/10/25 02/10/25 History psyllium husk 3.4 gram/5.4 gram 1 tbsp PO QAM 02/10/25 02/10/25 History oral powder (Metamucil) Past Med/Surg History Problem List Prostate cancer Elevated PSA Changing skin lesion Arthritis (Acute) Hypertension (Acute) Encounter for pre-operative examination Medical History Arthritis History of prostate cancer s/p prostatectomy History of diverticulitis Prediabetes Hyperlipidemia History of kidney stones History of gout Rosacea Claustrophobia PMR (polymyalgia rheumatica) HTN (hypertension) Surgical History History of hip surgery left hip resurfacing H/O prostatectomy 05/2023 History of colon resection (07/07/23) d/t diverticulitis > colostomy > ileostomy > then reversed (surgeries done at [place] and [facility]) History of tooth extraction History of melanoma excision History of shoulder surgery right History of endoscopy History of colonoscopy Family History Other No family history of adverse response to anesthesia No pertinent family history Social History Smoking Status: Light tobacco smoker Tobacco Type: Cigars Smoking End Date: "puffs on cigars in summer time when outside"; Second Hand Exposure: Yes (as a child); Do You Dip or Chew Tobacco: No; Hx Alcohol Use: Yes Alcohol type: hard liquor Hx Substance Use: No Preferred Language: Malagasy Communication Ability: Effective Visual Impairment: No Limitations Compliance Manager Required: No Beliefs That Will Affect Care: None marital status: Current Living Situation: Family Current Living Situation Comment: and daughter current occupational status: retired Feels Safe at Home: Yes Safety Concerns: Feels Safe At This Time Dental Care, Regularly: Yes Seatbelt Use: always Sunscreen Use: Yes Assistive Devices: Cane and Glasses Review of Systems All systems reviewed & are unremarkable except as noted in HPI & below. Physical Exam On physical exam of the right hip, he has decreased range of motion. He has pain with internal/external rotation. All of his pain is located in the groin.. Constitutional WD/WN, vitals as above Eyes PERRL, conjunctivae normal, anicteric sclerae ENMT external ear and nose normal, oropharynx normal Neck trachea midline, no thyromegaly Respiratory normal respiratory effort Cardiovascular RRR, no murmur, no edema Gastrointestinal (Abdomen) normal bowel sounds, soft, nontender, no hepatosplenomegaly Psychiatric A+Ox3, euthymic affect Results & Data Results & Data Laboratory Results . Diagnostic Findings . PG Care Time/CCT Total # of Minutes Spent Total Time Spent with Patient: Total time spent is greater than 50% in coordination of care (as documented) at patient's floor/unit and/or counseling patient: Coding Level of Care Code None Diagnoses Degenerative joint disease of right hip M16.11
[~2025-03-20 07:08] MED LIST changes: -ALLO300T2 PO; -AMLO5TAB PO; -ASPI81TA25 PO; +ROPIVACAINE 0.5% 5 MG/ML 30 ML VIAL ONE
[2025-03-20] MEDS ORDERED: LIDOCAINE 2% 2 ML VIAL/AMP(20MG/ML) INFIL ONE (07:13)
[2025-03-20] MEDS ORDERED: MIDAZOLAM HCL 1 MG/ML 2ML VIAL ONE (07:13)
[2025-03-20] MEDS ORDERED: PROPOFOL IV EMULSION 10 MG/ML 20 ML VIAL IV ONE ×2 (07:13)
[2025-03-20] MEDS: LR 60ML/HR IV SCH (07:54)
[2025-03-20] MEDS: dexAMETHasone**PF** 10 MG/ML VIAL IV SCH (07:56)
[2025-03-20] MEDS: FAMOTIDINE 20 MG TAB PO SCH (07:56)
[2025-03-20] MEDS: ACETAMINOPHEN 500 MG TAB PO SCH ×2 (07:56→13:51)
[2025-03-20] MEDS: GABAPENTIN 300 MG CAP PO SCH (07:56)
--- NOTE | 2025-03-20 07:56 | History & Physical Bridge Note ---
Date of Service March 20, 2025 History & Physical Bridge Note I have examined the patient, reviewed the History & Physical and in the interval since the performance of the History & Physical I have noted the following changes of clinical significance: no changes noted
[2025-03-20] MEDS: TRANEXAMIC ACID 1,000 MG **IV Pre-op IV SCH (08:57)
[2025-03-20] MEDS ORDERED: PHENYLEPHRINE 100MCG/ML 5ML SYR ONE ×3 (09:19→09:48)
[2025-03-20] MEDS ORDERED: ePHEDrine sulfate 50 MG/5 ML SYR ONE (09:26)
[2025-03-20] MEDS: ORTHO JOINT ANESTHETIC ONE (09:37)
[2025-03-20] MEDS ORDERED: ONDANSETRON INJ 2 MG/ML 2 ML VIAL IV PRN ×2 (09:47→12:32)
[2025-03-20] MEDS ORDERED: ATROPINE SULFATE 0.1 MG/ML 10ML SYR IV PRN (09:47)
[2025-03-20] MEDS ORDERED: KETOROLAC 30 MG/ML VIAL IV PRN (09:47)
[2025-03-20] MEDS ORDERED: HYDROmorphone INJ 1 MG/ML SYRINGE IV PRN (09:47)
[2025-03-20] MEDS: ROPIV 0.5% 246mg, Ketorolac 30mg, EPINEPHrine 0.5mg in NSS INFIL SCH (09:52)
--- NOTE | 2025-03-20 10:12 | Operative Report ---
PG Post Operative Report Pre & Post Diagnosis Operation Date: 03/20/25 09:00 Pre-Op Diagnosis: Degenerative joint disease of right hip Post-Op Diagnosis: Degenerative joint disease of right hip I identified the patient and participated in the time-out.: Yes Procedure Operation Date: 03/20/25 09:00 Actual Procedures p Right Anterior Total Hip Arthroplasty(Right) - Davidson Adnerson DO Surgeon Davidson Anderson DO [employer] Leader Jan Wilde PA-C Estimated Blood Loss 250 Findings Consistent with Post-Op Diagnosis Specimens Right femoral head Description of Procedure Implants used I used a ZimmerBiomet total hip arthroplasty system with a size 3 high offset Z1 stem, a 54 mm G7 cup, an E1 polyethylene liner, a 40 mm ceramic head with a 0 neck. Ed arrived at the hospital for the above procedure. He was seen in the preoperative holding area and the operative extremity was identified and signed. He was given a spinal anesthetic, a preoperative antibiotic, and TXA. He was then taken back to the operating room and laid on the table in the supine position. He was given basic sedation. The operative leg was secured to a Puristst leg positioner. The hip was then prepped and draped in sterile fashion. A timeout was done and the patient and the operative extremity was properly identified. An anterior approach was used. Dissection was taken down through the fascia and the tensor muscle belly was retracted laterally and the rectus was retracted medially. The circumflex vessels were identified and ligated. The capsule was then incised and tagged for later repair. The femoral neck was then cut and the femoral head was removed. The acetabulum was exposed. Time was spent doing a complete circumferential labral release. Sequential reaming of the acetabulum up to a size 53 reamer was done. Final reamings were done under fluoroscopy to ensure appropriate version. A Biomet 54 mm G7 cup was then impacted into place. The E1 polyethylene liner was then snapped into place. Surrounding soft tissues were then injected with 100 cc of an orthopedic pain control cocktail. The proximal femur was then exposed. Sequential broaching up to a size 3 broach was done. Off that broach a size 40 head with a 0 neck was trialed. The hip was reduced and fluoroscopic images showed anatomic alignment of the implants in acceptable length. The broach was removed. The final size 3 high offset Z1 stem was then impacted into place. A ceramic 40 mm head with a 0 neck was then impacted onto the stem and the hip was reduced. Final fluoroscopic images showed anatomic alignment of the hip. The capsule was then closed with #1 Vicryl suture. An Irrisept lavage was then done for 3 minutes. The joint was then irrigated with normal saline solution. The fascia was closed with #1 PDS suture. Skin was closed with 2-0 Vicryl, Spangle Zipline, and a Silverlon dressing. He was then transferred to a hospital bed and taken to the post anesthesia care unit in stable condition. He tolerated the procedure well. Jan Wilde PA-C, was present for the entire procedure. He was critical for patient positioning, prepping, draping, retraction exposure, wound closure and application of sterile dressing. I attest to the content of the Intraoperative Record and any orders documented therein. Any exceptions are noted below.
--- NOTE | 2025-03-20 10:44 | Fluoroscopy Report ---
FL hip RT 1V CLINICAL HISTORY: RIGHT ANTERIOR HIP COMPARISON STUDY: 01/01/2025 FLUOROSCOPY TIME: 11.9 sac FLUOROSCOPY IMAGES: 1 EXPOSURE DOSE: 1.82 mGy FINDINGS: Satisfactory alignment of a right hip arthroplasty. No acute fracture or unexpected opaque foreign body. IMPRESSION: Fluoroscopic assistance as above. ACT 112: Negative or not required by law. Electronically signed by: Yobani Khalil M.D. 03/20/2025 10:42 AM
--- NOTE | 2025-03-20 11:12 | XRay Report ---
XR hip 1V RT w pelvis CLINICAL HISTORY: Right hip arthroplasty. COMPARISON: Right hip radiographs January 01, 2025. FINDINGS: Alignment of the total right hip arthroplasty is anatomic. There is no periprosthetic frac ture or unexpected radiopaque foreign body. Small portion of the greater trochanter is excluded on th e AP projection. Left hip arthroplasty is noted. IMPRESSION: Expected findings following total right hip arthroplasty. ACT 112: Negative or not required by law. Electronically signed by: Lupillo Mixon M.D. 03/20/2025 11:11 AM
[2025-03-20] MEDS ORDERED: HYDROmorphone INJ 0.5 MG/0.5 ML SYR IV PRN (12:32)
[2025-03-20] MEDS ORDERED: METOCLOPRAMIDE HCL INJ 5 MG/ML 2 ML VIAL IV PRN (12:32)
[2025-03-20] MEDS ORDERED: NALOXONE HCL 0.4 MG/1 ML VIAL/CARP IV PRN (12:32)
[2025-03-20] MEDS ORDERED: MAGNESIUM HYDROXIDE SUSP 30 ML UDC PO PRN (12:32)
[2025-03-20] MEDS: SODIUM CHLORIDE 0.9% 1,000 ML IV SCH (13:14)
--- NOTE | 2025-03-20 13:15 | Anesthesiology Progress Note ---
Date of Service March 20, 2025 Anesthesia Post Procedure Vital Signs Vital Signs: Temp Pulse Pulse Resp BP Pulse Ox O2 Del Method 03/20/25 13:00 36.3 C L 93 H 20 142/72 H 97 Room Air 03/20/25 12:00 91 H 14 113/78 93 Room Air 03/20/25 11:50 87 13 105/75 95 Room Air 03/20/25 11:35 83 13 101/57 L 94 Room Air 03/20/25 11:20 85 14 100/56 L 95 Room Air 03/20/25 11:05 84 16 110/59 L 96 Room Air 03/20/25 10:55 36.4 C L 86 16 110/56 L 95 Room Air 03/20/25 10:45 91 H 17 100/59 L 98 Room Air 03/20/25 10:38 37.1 C 85 14 97/65 L 98 Room Air 03/20/25 07:32 36.9 C 75 16 130/74 95 Room Air Transfer of Care Handoff Completed per policy Notes Mental Status: alert / awake / arousable Patient Amnestic to Procedure: Yes Nausea / Vomiting: adequately controlled Pain: adequately controlled Airway Patency, RR, SpO2: stable & adequate BP & HR: stable & adequate Hydration State: stable & adequate Neuraxial Anesthesia: was administered and sensory block is resolving Anesthetic Complications: no major complications apparent
[2025-03-20] MEDS: KETOROLAC TROMETHAMINE 15 MG/ML VIAL IV SCH (13:51)
[2025-03-20] MEDS: SENNA 8.6 MG TAB PO SCH (20:25)
[2025-03-20] MEDS: DOCUSATE SODIUM 100 MG CAP PO SCH (20:25)
[2025-03-20] MEDS: ASPIRIN 81 MG ECTAB PO SCH (20:25)
[2025-03-21] MEDS: LR 500ML BOLUS, THEN 15ML/HR IV SCH (05:20)
[2025-03-21 08:20] VITALS: BP 145/79; PULSE 80; RESP 16; TEMP 98.4; O2SAT 96
[2025-03-21] MEDS: ATORVASTATIN 10 MG TAB PO SCH (08:40)
[2025-03-21] MEDS: VALSARTAN 80 MG TAB PO SCH (08:40)
[2025-03-21] MEDS: MULTIVITAMIN TAB PO SCH (08:40)
--- NOTE | 2025-03-21 10:35 | Orthopedic Progress Note ---
Date of Service March 21, 2025 Assessment & Plan (1) Status post right hip replacement: Overall he is doing very well. He is not having much pain of the right hip. He will be seen by physical therapy today for ambulation and range of motion exercises. He is on aspirin for DVT prophylaxis. He can be discharged home later today. He will follow-up orthopedics in 2 weeks. Ede José was seen and examined at bedside this morning. Overall is doing very well. He is not having much pain in the right hip. He has been up and ambulating to the bathroom. He is no complaints.. Review of Systems All systems reviewed & are unremarkable except as noted in HPI & below. Physical Exam On physical exam of the right hip, the dressing is clean and dry. He is sitting in a chair at bedside. He is neurovascular intact.. Results & Data Results & Data Laboratory Results . Diagnostic Findings Postoperative x-rays of the right hip show the prosthesis to be in anatomic alignment without any evidence of fracture, his cage, or loosening.. PG Care Time/CCT Total # of Minutes Spent Total Time Spent with Patient: Total time spent is greater than 50% in coordination of care (as documented) at patient's floor/unit and/or counseling patient: Coding Level of Care Code 90672 Post Operative Follow-Up Diagnoses Status post right hip replacement Z96.641
== END 2025-03-21 11:21 | disposition home or self-care (01) ==
LOC: PACUINP 07:08 → ASU 07:08 → 3N 12:31